=== PATIENT | male | born 1945 | race Caucasian/White ===

== ENCOUNTER 2016-12-17 16:01 | Observation (INO) | payer OTHER, MEDICAID ==
[~2016-12-17] VITALS: Ht 182.9 cm; Wt 100.0 kg
[~2016-12-17 16:01] MED LIST: 1-ME1LIQ PO; ADVAI250I PO; ASPI81TA82 PO; ATOR40TA49 PO; CENTTAB9 PO; CETI10 PO; DUONI NEB; ENOX30P SQ; FLON0.053 EACH NARE; FURO20 PO; GABA300C3 PO; LOSA25TA31 PO; MAGN500T4 PO; METO25 PO; MONT10 PO; NOVONP2 SQ; PERC5TAB12 PO; POTA10IN2 PO; PRIL40CA PO; SPIRCAP INH; TAMS0.4C67 PO; Z.0.OXYGENDME NC; ZOFR8TAB PO
[2016-12-17 16:04] VITALS: BP 163/70; PULSE 58; RESP 14; TEMP 98; O2SAT 98
--- NOTE | 2016-12-17 16:33 | PD ---
HPI Chief Complaint: GI Complaint Time Seen by Provider: 16:33 Travel History International Travel<30 days: No Contact w/Intl Traveler<30days: No Traveled to known affect area: No History of Present Illness HPI 71-year-old male with history of remote CVA, CAD, hypertension, and NSTEMI, COPD , presents to the emergency department for evaluation of 2 days of cough and chest congestion. Cough is productive of a thick green mucus. Patient has had posttussive emesis. States that he woke up 2 times last night "drenched in sweat." He even had to change her sheets this morning because he had sweats so much throughout the night. Patient contacted his primary care provider and was scheduled for Friday but thought that he cannot wait. He states he has been feeling weak throughout the day and has had bouts of disorientation. He is concerned because he has had pneumonia in the past that has resulted in hospitalization. He denies any chest pain. States that it feels a little tight but feels this is the mucus in his chest. No nausea or any. No diarrhea. No other symptoms to report. PFSH Past Medical History Anemia: Yes Arthritis: Yes Asthma: Yes Autoimmune Disease: No Blood Disorders: No Anxiety: No Depression: No Heart Rhythm Problems: Yes Cancer: No Cardiac Catheterization: Yes (1991 NO STENTS PLACED) Cardiovascular Problems: Yes High Cholesterol: Yes Chemotherapy: No Chest Pain: Yes COPD: Yes Cerebrovascular Accident: Yes Diabetes: Yes Diminished Hearing: Yes (RIGHT) Diverticulitis: Yes Endocrine: Yes Gastrointestinal Disorders: Yes (DIVERTICULOSIS) GERD: Yes Genitourinary: No Headaches: Yes Hepatitis: No Hiatal Hernia: No Hypertension: Yes Immune Disorder: No Implanted Vascular Access Dvce: Yes Kidney Stones: Yes Musculoskeletal: Yes (ARTHRITIS) Neurologic: Yes Psychiatric: No Reproductive: No Respiratory: Yes Immunizations Current: Yes Migraines: No Myocardial Infarction: Yes (NSTEMI) Pneumonia: Yes Radiation Therapy: No Renal Failure: No Seizures: Yes Sickle Cell Disease: No Sleep Apnea: No Thyroid Disease: No Triglycerides - High: Yes Ulcer: No Past Surgical History Abdominal Surgery: No AICD: No Arteriovenous Shunt: No Body Medical Devices: CERVICAL HARDWARE Cardiac Surgery: Yes Ear Surgery: No Endocrine Surgery: No Eye Surgery: No Genitourinary Surgery: Yes Gynecologic Surgery: No Insulin Pump: No Joint Replacement: No Neurologic Surgery: Yes (ANT. CERVICAL FUSION) Oral Surgery: Yes (DENTAL EXTRACTION) Pacemaker: No Thoracic Surgery: No Tonsillectomy: Yes Other Surgery: Yes (SPINAL FUSION C2,3,4,5,6) Social History Alcohol Use: No Tobacco Use: No Substance Use: No Allergies-Medications (Allergen,Severity, Reaction): Coded Allergies: Erythromycin (Verified Allergy, Severe, RASH, HIVES, SOB, 12/17/16) Gentamicin (Verified Allergy, Severe, RASH/SOB, 12/17/16) PT STATES HE IS NOT ALLERGIC Reported Meds & Prescriptions Reported Meds & Active Scripts Active Lovenox (Enoxaparin Sodium) 30 Mg/0.3 Ml Inj 30 Mg SQ Q12H 14 Days Lasix 20 Mg Tab (Furosemide) 20 Mg Tab 20 Mg PO DAILY 30 Days Zofran Tab (Ondansetron HCl) 8 Mg Tab 8 Mg PO BID Percocet 5-325 mg (Oxycodone/Acetaminophen) 1 Tab 1 Tab PO Q4H PRN Oxygen (O2) (Oxygendme) Device 2 L NC HS Oxygen Concentrator Portable Gaseous 2 L/min via Nasal Cannula Continuous For 99 months Resp: Albuterol/Ipratropium 2.5 Mg/0.5 Mg (Albuterol/Ipratropium) 1 Amp Nebu 1 Ampule NEB Q6HR NEB PRN Flomax (Tamsulosin HCl) 0.4 Mg Cap 0.4 Mg PO BID Metoprolol Tartrate 25 mg (Metoprolol Tartrate) 25 Mg Tab 25 Mg PO Q12HR Reported Spiriva Handihaler (Tiotropium [place]) 18 Mcg Cap 1 Puff INH DAILY DO NOT SWALLOW CAPSULES Magnesium 500 Mg Tab 400 Mg PO DAILY Potassium Chloride ER 10 meq (Potassium Chloride) 10 Meq Cap 1 Cap PO DAILY Centrum (Multivitamins) Tab 1 Tab PO DAILY Montelukast Sodium 10 Mg Tab 10 Mg PO DAILY Novolin N (Insulin Human NPH) 100 Units/Ml Inj 30 Units SQ HS Gabapentin 300 Mg Cap 300 Mg PO TID Advair Diskus 250/50 (Salmeterol Xinafoate/Fluticasone) Fluticasone/Salmeterol 250/50 Inh 1 Inh PO BID Zyrtec 10 Mg Tab (Cetirizine HCl) 10 Mg Tab 10 Mg PO DAILY Aspir-81 (Aspirin) 81 Mg Tab 81 Mg PO DAILY Prilosec 40 mg cap (Omeprazole) 40 Mg Cap 40 Mg PO DAILY Flonase (Fluticasone Propionate) 0.05 % Naspr 2 Spr EACH NARE BID Cozaar (Losartan Potassium) 25 Mg Tab 25 Mg PO DAILY Lipitor 40 Mg Tab (Atorvastatin Calcium) 40 Mg Tab 40 Mg PO HS Amlodipine Besylate 10 mg (Amlodipine Besylate) 10 Mg Tab 10 Mg PO DAILY Review of Systems Except as stated in HPI: all other systems reviewed are Neg Physical Exam Narrative GENERAL: Well-nourished male patient, ambulatory with cane assistance, in no acute distress SKIN: Warm and dry. HEAD: Atraumatic. Normocephalic. EYES: Pupils equal and round. No scleral icterus. No injection or drainage. ENT: No nasal bleeding or discharge. Mucous membranes pink and moist. NECK: Trachea midline. No JVD. CARDIOVASCULAR: Regular rate and rhythm. No murmur appreciated. RESPIRATORY: No accessory muscle use. Coarse clear to cough, diminished . Breath sounds equal bilaterally. GASTROINTESTINAL: Abdomen soft, non-tender, nondistended. Hepatic and splenic margins not palpable. MUSCULOSKELETAL: No obvious deformities. No clubbing. No cyanosis. No edema. NEUROLOGICAL: Awake and alert. No obvious cranial nerve deficits. Motor grossly within normal limits. Normal speech. PSYCHIATRIC: Appropriate mood and affect; insight and judgment normal. Data Data Last Documented VS Vital Signs Date Time Temp Pulse Resp B/P Pulse Ox O2 Delivery O2 Flow Rate FiO2 12/17/16 16:04 98.0 58 14 163/70 98 Room Air Orders Complete Blood Count With Diff (12/17/16 16:30) Basic Metabolic Panel (Bmp) (12/17/16 16:30) Ckmb (Isoenzyme) Profile (12/17/16 16:30) Troponin I (12/17/16 16:30) Influenzae A/B Antigen (12/17/16 16:30) Electrocardiogram (12/17/16 16:30) Chest, Single Ap (12/17/16 16:30) CKMB (12/17/16 16:58) CKMB% (12/17/16 16:58) Labs Laboratory Tests Test 12/17/16 16:58 White Blood Count 5.8 TH/MM3 Red Blood Count 4.18 MIL/MM3 Hemoglobin 12.3 GM/DL Hematocrit 37.0 % Mean Corpuscular Volume 88.7 FL Mean Corpuscular Hemoglobin 29.4 PG Mean Corpuscular Hemoglobin 33.2 % Concent Red Cell Distribution Width 15.9 % Platelet Count 279 TH/MM3 Mean Platelet Volume 7.0 FL Neutrophils (%) (Auto) 78.0 % Lymphocytes (%) (Auto) 7.9 % Monocytes (%) (Auto) 11.4 % Eosinophils (%) (Auto) 1.0 % Basophils (%) (Auto) 1.7 % Neutrophils # (Auto) 4.5 TH/MM3 Lymphocytes # (Auto) 0.5 TH/MM3 Monocytes # (Auto) 0.7 TH/MM3 Eosinophils # (Auto) 0.1 TH/MM3 Basophils # (Auto) 0.1 TH/MM3 CBC Comment DIFF FINAL Differential Comment Sodium Level 140 MEQ/L Potassium Level 4.1 MEQ/L Chloride Level 105 MEQ/L Carbon Dioxide Level 25.5 MEQ/L Anion Gap 10 MEQ/L Blood Urea Nitrogen 16 MG/DL Creatinine 1.10 MG/DL Estimat Glomerular Filtration 66 ML/MIN Rate Random Glucose 86 MG/DL Calcium Level 9.0 MG/DL Total Creatine Kinase 126 U/L Creatine Kinase MB 1.9 NG/ML Troponin I 0.08 NG/ML MDM Medical Decision Making Medical Screen Exam Complete: Yes Emergency Medical Condition: Yes Medical Record Reviewed: Yes Differential Diagnosis Pneumonia versus influenza versus CHF versus ACS Narrative Course 71-year-old male presents to emergency department for evaluation. Patient does have coarse breath sounds. He appears without distress Work up was initiated in triage. Once a medical bed becomes available, patient will be transferred and care assumed by that provider. Condition: Stable Babs Reed Dec 17, 2016 16:33 Babs Reed Dec 17, 2016 16:33
--- NOTE | 2016-12-17 16:49 | RADRPT ---
EXAM DATE/TIME: 12/17/2016 16:28 [facility] COMPARISON: CHEST SINGLE AP, September 04, 2016, 10:29. INDICATIONS : Short of breath. MEDICAL HISTORY : Chronic obstructive pulmonary disease. SURGICAL HISTORY : None. ENCOUNTER: Initial ACUITY: 1 week PAIN SCORE: 4/10 LOCATION: Bilateral chest FINDINGS: Portable AP view of the chest demonstrates a normal-sized cardiac silhouette. Lungs are underinflated . There is mild airspace opacity left lung base. No pneumothorax or definite effusion is seen. Bones and soft tissues demonstrate no acute finding. CONCLUSION: Subtle airspace opacity at the left lung base could represent atelectasis or mild consolidation. Chao Mcneil MD on December 17, 2016 at 16:46 Board Certified Radiologist. This report was verified electronically.
[2016-12-17 17:23] LABS: AUTOMATED NEUTROPHIL # 4.5 TH/MM3 (1.8-7.7); BASOPHIL # 0.1 TH/MM3 (0-0.2); BASOPHIL % 1.7 % (0.0-2.0); EOSINOPHIL # 0.1 TH/MM3 (0-0.4); LYMPH % 7.9 % (9.0-44.0); LYMPHOCYTE # 0.5 TH/MM3 (1.0-4.8); MEAN CELL VOLUME 88.7 FL (80.0-100.0); MEAN CORPUSCULAR HEMOGLOBIN 29.4 PG (27.0-34.0); MEAN CORPUSCULAR HGB CONC 33.2 % (32.0-36.0); MONO % 11.4 % (0.0-8.0); PLATELET COUNT 279 TH/MM3 (150-450); RED BLOOD COUNT 4.18 MIL/MM3 (4.50-5.90); RED CELL DISTRIBUTION WIDTH 15.9 % (11.6-17.2); WHITE BLOOD COUNT 5.8 TH/MM3 (4.0-11.0)
[2016-12-17 17:24] LABS: HEMO FLAGS DIFF FINAL
[2016-12-17 17:42] LABS: ANION GAP 10 MEQ/L (5-15); BICARBONATE 25.5 MEQ/L (21.0-32.0); BLOOD UREA NITROGEN 16 MG/DL (7-18); CHLORIDE 105 MEQ/L (98-107); GLOMERULAR FILTRATION RATE 66 ML/MIN (>89); POTASSIUM 4.1 MEQ/L (3.5-5.1); SODIUM (NA) 140 MEQ/L (136-145)
[2016-12-17 17:45] LABS: CREATINE KINASE 126 U/L (39-308)
[2016-12-17 17:58] LABS: CKMB 1.9 NG/ML (0.5-3.6)
--- NOTE | 2016-12-17 19:15 | EKG ---
Date Performed: 12/17/2016 Time Performed: 17:10:10 PTAGE: 71 years EKG: SINUS BRADYCARDIA RIGHT BUNDLE BRANCH BLOCK LEFT ANTERIOR FASCICULAR BLOCK ABNORMAL ECG NO SIGNIFICANT CHANGE FROM PRIOR ELECTROCARDIOGRAM. PREVIOUS TRACING : 09/07/2016 20.51 DOCTOR: Sylvester Vogt Interpretating Date/Time 12/17/2016 19:13:58
[2016-12-17] MEDS ORDERED: GABA300C5 PO (20:07)
[2016-12-17] MEDS ORDERED: OMEP40CA2 PO (20:07)
[2016-12-17] MEDS ORDERED: IPRAAER INH (20:07)
[2016-12-17] MEDS ORDERED: GLIP10TA6 PO (20:07)
[2016-12-17] MEDS ORDERED: POTA10TA8 PO (20:07)
[2016-12-17] MEDS ORDERED: NOVONP2 SQ (20:07)
[2016-12-17] MEDS ORDERED: TRAZ50TA12 PO (20:07)
[2016-12-17] MEDS ORDERED: METF1000 PO (20:07)
[2016-12-17] MEDS ORDERED: ATOR40TA16 PO (20:07)
[2016-12-17] MEDS ORDERED: MONT10TA4 PO (20:07)
[2016-12-17] MEDS ORDERED: LOSA25TA PO (20:07)
[2016-12-17] MEDS ORDERED: METO25TA3 PO (20:07)
[2016-12-17] MEDS ORDERED: SPIRCAP INH (20:07)
[2016-12-17] MEDS ORDERED: TAMS0.4C4 PO (20:07)
[2016-12-17] MEDS ORDERED: FURO20TA PO (20:07)
[2016-12-17] MEDS ORDERED: AMLO10TA2 PO (20:07)
[2016-12-17] MEDS ORDERED: BACL20TA PO (20:07)
[2016-12-17] MEDS ORDERED: VENTAER INH (20:07)
[2016-12-17] MEDS ORDERED: ADVA250A INH (20:07)
[2016-12-17 21:01] VITALS: BP 141/67; PULSE 72; RESP 16; O2SAT 95
--- NOTE | 2016-12-17 21:25 | PD ---
Data Data Last Documented VS Vital Signs Date Time Temp Pulse Resp B/P Pulse Ox O2 Delivery O2 Flow Rate FiO2 12/17/16 21:01 72 16 141/67 95 Room Air 12/17/16 16:04 98.0 Orders Complete Blood Count With Diff (12/17/16 16:30) Basic Metabolic Panel (Bmp) (12/17/16 16:30) Ckmb (Isoenzyme) Profile (12/17/16 16:30) Troponin I (12/17/16 16:30) Influenzae A/B Antigen (12/17/16 16:30) Electrocardiogram (12/17/16 16:30) Chest, Single Ap (12/17/16 16:30) CKMB (12/17/16 16:58) CKMB% (12/17/16 16:58) Electrocardiogram (12/17/16 ) Troponin I (12/17/16 20:14) B-Type Natriuretic Peptide (12/17/16 21:57) Blood Culture (12/17/16 21:57) Sodium Chloride 0.9% Flush (Ns Flush) (12/17/16 22:00) Ceftriaxone Inj (Rocephin Inj) (12/17/16 22:00) Levofloxacin 750 Mg Premix Inj (Levaquin (12/17/16 22:00) Admit Order (Ed Use Only) (12/17/16 22:21) Labs Laboratory Tests Test 12/17/16 12/17/16 16:58 19:50 White Blood Count 5.8 TH/MM3 Red Blood Count 4.18 MIL/MM3 Hemoglobin 12.3 GM/DL Hematocrit 37.0 % Mean Corpuscular Volume 88.7 FL Mean Corpuscular Hemoglobin 29.4 PG Mean Corpuscular Hemoglobin 33.2 % Concent Red Cell Distribution Width 15.9 % Platelet Count 279 TH/MM3 Mean Platelet Volume 7.0 FL Neutrophils (%) (Auto) 78.0 % Lymphocytes (%) (Auto) 7.9 % Monocytes (%) (Auto) 11.4 % Eosinophils (%) (Auto) 1.0 % Basophils (%) (Auto) 1.7 % Neutrophils # (Auto) 4.5 TH/MM3 Lymphocytes # (Auto) 0.5 TH/MM3 Monocytes # (Auto) 0.7 TH/MM3 Eosinophils # (Auto) 0.1 TH/MM3 Basophils # (Auto) 0.1 TH/MM3 CBC Comment DIFF FINAL Differential Comment Sodium Level 140 MEQ/L Potassium Level 4.1 MEQ/L Chloride Level 105 MEQ/L Carbon Dioxide Level 25.5 MEQ/L Anion Gap 10 MEQ/L Blood Urea Nitrogen 16 MG/DL Creatinine 1.10 MG/DL Estimat Glomerular Filtration 66 ML/MIN Rate Random Glucose 86 MG/DL Calcium Level 9.0 MG/DL Total Creatine Kinase 126 U/L Creatine Kinase MB 1.9 NG/ML Troponin I 0.08 NG/ML 0.08 NG/ML [facility] Medical Record Reviewed: Yes Supervised Visit with [place]: Yes Narrative Course I, Dr. Vital, have reviewed the advance practice practitioner's documentation and am in agreement, met with the patient face to face, made the diagnosis, and the medical decision making was done by me. *My assessment and Findings: Patient has had cough, productive associated with night sweats. He's also vomited several times today. He has COPD and coronary artery disease. His workup tonight reveals the following: CBC & BMP Diagram 12/17/16 16:58 Troponin is 0.08 with a repeat troponin 2 hours later of 0.08 EKG: Sinus, rate 69, right bundle branch block pattern similar to old EKGs, deep Q waves in the inferior leads also stable Last 24 hours Impressions Chest X-Ray 12/17/16 1630 Signed Impressions: Service Date/Time: Saturday, December 17, 2016 16:28 - CONCLUSION: Subtle airspace opacity at the left lung base could represent atelectasis or mild consolidation. Chao Mcneil MD The patient's troponin has been measured here 17 times revealing an elevated level always. He has no chest pain. His EKG is stable. An acute coronary process is considered unlikely. He appears to have pneumonia at the left base based on today's evaluation. Case discussed with cardiology on-call, Dr. Singh. Admission considered reasonable. Discussed with Dr. Cooper for the hospitalist service. Rocephin and Levaquin started here. Cultures obtained. Patient reassessed prior to admission and is agreeable with plan and is in no distress. Diagnosis Primary Impression: Pneumonia Qualified Code: J18.1 - Pneumonia of left lower lobe due to infectious organism Additional Impressions: Vomiting Qualified Code: R11.2 - Non-intractable vomiting with nausea, unspecified vomiting type Elevated troponin I level Additional Instruction: Neal Vital MD Dec 17, 2016 21:25 Doxycycline Hyclate 100 Mg [id number] Mg PO BID #20 CAP Ref 0 Prov:Neal Vital MD 12/17/16 Amoxicillin-Clavulanate (Augmentin)500-125 mg [id number] Mg PO TID 10 Days Ref 0 Prov:Neal Vital MD 12/17/16 Disposition: 01 DISCHARGE HOME Condition: Stable Neal Vital MD Dec 17, 2016 21:25
[2016-12-17] MEDS ORDERED: AUGM500T7 PO (21:33)
[2016-12-17] MEDS ORDERED: REGL10TA5 PO (21:33)
[2016-12-17] MEDS ORDERED: DOXY100C PO (21:33)
[2016-12-17] MEDS ORDERED: cefTRIAXone INJ 1,000 MG in SODIUM CHLORIDE 0.9% INJ 100 ML IV ONE (22:00)
[2016-12-17] MEDS ORDERED: SODIUM CHLORIDE 0.9% FLUSH 5 ML FLUSH IVF PRN (22:00)
[2016-12-17] MEDS ORDERED: LEVOFLOXACIN 750 MG PREMIX INJ 150 ML IV ONE (22:00)
[2016-12-17] MEDS ORDERED: DEXTROSE 50% IN WATER 50 ML VIAL(D50) IV PUSH PRN (23:15)
[2016-12-17] MEDS ORDERED: GLUCAGON 1 MG/ML VIAL OTHER PRN (23:15)
[2016-12-17] MEDS ORDERED: SODIUM CHLORIDE 0.9% FLUSH 5 ML FLUSH FLUSH PRN (23:15)
[2016-12-17] MEDS ORDERED: NALOXONE HCL 0.4 MG/ML AMP IV PRN (23:15)
[2016-12-18] VITALS (7 sets, daily range): BP systolic 126–159; BP diastolic 59–76; PULSE 55–84; RESP 16–20; TEMP 97.9–98.9; O2SAT 94–97
--- NOTE | 2016-12-18 05:40 | EKG ---
Date Performed: 12/17/2016 Time Performed: 19:51:47 PTAGE: 71 years EKG: Sinus rhythm WITH FIRST DEGREE AV BLOCK RIGHT BUNDLE BRANCH BLOCK LEFT anterior fascicular block Cannot rule out INFERIOR MYOCARDIAL INFARCTION ABNORMAL ECG INTERPRETATION BASED ON A DEFAULT AGE OF 42 YEARS NO SIGN IFICANT CHANGE FROM PRIOR ELECTROCARDIOGRAM. PREVIOUS TRACING : 12/17/2016 17.10 DOCTOR: Sylvester Vogt Interpretating Date/Time 12/18/2016 05:39:14
[2016-12-18] MEDS: glipiZIDE 10 MG TAB PO SCH ×2 (05:53→16:14)
[2016-12-18] MEDS: INSULIN ASPART SUPPLEMENTAL SCALE SQ SCH ×4 (05:58→21:00)
--- NOTE | 2016-12-18 08:14 | EKG ---
Date Performed: 12/18/2016 Time Performed: 01:58:37 PTAGE: 71 years EKG: SINUS BRADYCARDIA WITH FIRST DEGREE AV BLOCK WITH Probable sinus arrhythmia and premature v entricular contractions LOW QRS VOLTAGE IN PRECORDIAL LEADS RIGHT BUNDLE BRANCH BLOCK INFERIOR MYOCAR DIAL INFARCTION ABNORMAL ECG COMPARED TO PRIOR ELECTROCARDIOGRAM, PVCs are present. PREVIOUS TRACING : 12/17/2016 19.51 DOCTOR: Sylvester Vogt Interpretating Date/Time 12/18/2016 08:12:28
[2016-12-18] MEDS: POTASSIUM CHLORIDE 10 MEQ CONTROLLED RELEASE TAB PO SCH (10:46)
[2016-12-18] MEDS: TIOTROPIUM BROMIDE 18 MCG INH INH SCH (10:46)
[2016-12-18] MEDS: GABAPENTIN 300 MG CAP PO SCH ×3 (10:46→18:51)
[2016-12-18] MEDS: PANTOPRAZOLE SOD 40 MG DELAYED RELEASE TAB PO SCH (10:46)
[2016-12-18] MEDS: FUROSEMIDE 20 MG TAB PO SCH ×2 (10:46→21:34)
[2016-12-18] MEDS: LOSARTAN 25 MG TAB PO SCH (10:46)
[2016-12-18] MEDS: BACLOFEN 20 MG TAB PO SCH ×3 (10:46→18:51)
[2016-12-18] MEDS: METOPROLOL TARTRATE 25 MG TAB PO SCH ×2 (10:46→21:35)
[2016-12-18] MEDS: SODIUM CHLORIDE 0.9% FLUSH 5 ML FLUSH FLUSH SCH ×2 (10:47→21:33)
--- NOTE | 2016-12-18 11:13 | HHI.HP ---
cc: Dr. Robin Sheldon [facility] Robin Sheldon M.D. Admission Diagnosis L Lung PNA, N/V, Tn 0.08 Diagnoses: Chief Complaint: cough, sweats, vomiting Travel History International Travel<30 Days: No Contact w/Intl Traveler <30 Da: No Traveled to Known Affected Are: No History of Present Illness 71-year-old male with history of COPD, HTN, HLD, CHF, DM, GERD, arthritis, presents with a 2 day history of cough, nasal congestion, sweats/chills. His cough has been productive of thick milky green mucus. Patient states the past 2 nights he has woke up drenched in sweat, felt like he was breaking a fever. He did not take his temperature at home. Denies any chest pain, shortness of breath, or wheezing. Patient states he felt like he was coming down with pneumonia as he has had this in the past. He contacted his PCP who could not arrange an appointment until Friday (3 days from now), however the patient felt miserable therefore he presented to the ER. He's been using his DuoNebs at home for his COPD without much relief. Denies any sick contacts. Yesterday morning after breakfast he was coughing significantly, then had an episode of posttussive vomiting. Otherwise he denies any abdominal pain, nausea, or recurrent vomiting. Denies any constipation or diarrhea. He has no other medical complaints at this time. Upon arrival, the chest xray showed airspace opacity at the left lung base consistent with mild consolidation. The patient was to be sent home from the ER, however troponin was elevated at 0.08. ER MD contacted the patient's social work professor Dr. Singh who recommended the patient stay in the hospital for further evaluation. The patient also sees nursing informatics specialist Dr. Kuhn. Review of Systems Constitutional: COMPLAINS OF: Chills, Dizziness, Night Sweats, DENIES: Fever, Change in appetite Endocrine: DENIES: Polydipsia, Polyuria, Polyphagia Eyes: DENIES: Blurred vision, Diplopia, Double Vision Ears, nose, mouth, throat: COMPLAINS OF: Running Nose, DENIES: Ear Pain, Odynophagia Respiratory: COMPLAINS OF: Cough, Sputum production, DENIES: Wheezing, Shortness of breath Cardiovascular: DENIES: Chest pain, Palpitations, Syncope, Dyspnea on Exertion Gastrointestinal: COMPLAINS OF: Vomiting, DENIES: Abdominal pain, Constipation , Diarrhea, Nausea Genitourinary: DENIES: Urinary frequency, Urgency, Dysuria Musculoskeletal: DENIES: Back pain, Neck pain Integumentary: DENIES: Pruritus, Rash Hematologic/lymphatic: DENIES: Bruising, Lymphadenopathy Immunologic/allergic: DENIES: Eczema, Urticaria Neurologic: DENIES: Abnormal gait, Headache, Localized weakness, Paresthesias Psychiatric: DENIES: Anxiety, Depression Past Family Social History Past Medical History COPD HTN HLD CHF DM GERD arthritis Past Surgical History C2-C6 spinal fusion Right ankle fracture repair with hardware in place Reported Medications Active Lasix 20 Mg Tab (Furosemide) 20 Mg Tab 20 Mg PO DAILY 30 Days Zofran Tab (Ondansetron HCl) 8 Mg Tab 8 Mg PO BID Percocet 5-325 mg (Oxycodone/Acetaminophen) 1 Tab 1 Tab PO Q4H PRN Oxygen (O2) (Oxygendme) Device 2 L NC HS Oxygen Concentrator Portable Gaseous 2 L/min via Nasal Cannula Continuous For 99 months Resp: Albuterol/Ipratropium 2.5 Mg/0.5 Mg (Albuterol/Ipratropium) 1 Amp Nebu 1 Ampule NEB Q6HR NEB PRN Flomax (Tamsulosin HCl) 0.4 Mg Cap 0.4 Mg PO BID Metoprolol Tartrate 25 mg (Metoprolol Tartrate) 25 Mg Tab 25 Mg PO Q12HR Reported Spiriva Handihaler (Tiotropium [place]) 18 Mcg Cap 1 Puff INH DAILY DO NOT SWALLOW CAPSULES Magnesium 500 Mg Tab 400 Mg PO DAILY Potassium Chloride ER 10 meq (Potassium Chloride) 10 Meq Cap 1 Cap PO DAILY Centrum (Multivitamins) Tab 1 Tab PO DAILY Montelukast Sodium 10 Mg Tab 10 Mg PO DAILY Novolin N (Insulin Human NPH) 100 Units/Ml Inj 30 Units SQ HS Gabapentin 300 Mg Cap 300 Mg PO TID Advair Diskus 250/50 (Salmeterol Xinafoate/Fluticasone) Fluticasone/Salmeterol 250/50 Inh 1 Inh PO BID Zyrtec 10 Mg Tab (Cetirizine HCl) 10 Mg Tab 10 Mg PO DAILY Aspir-81 (Aspirin) 81 Mg Tab 81 Mg PO DAILY Prilosec 40 mg cap (Omeprazole) 40 Mg Cap 40 Mg PO DAILY Flonase (Fluticasone Propionate) 0.05 % Naspr 2 Spr EACH NARE BID Cozaar (Losartan Potassium) 25 Mg Tab 25 Mg PO DAILY Lipitor 40 Mg Tab (Atorvastatin Calcium) 40 Mg Tab 40 Mg PO HS Amlodipine Besylate 10 mg (Amlodipine Besylate) 10 Mg Tab 10 Mg PO DAILY Allergies: Coded Allergies: Erythromycin (Verified Allergy, Severe, RASH, HIVES, SOB, 12/17/16) Gentamicin (Verified Allergy, Severe, RASH/SOB, 12/17/16) PT STATES HE IS NOT ALLERGIC Active Ordered Medications Current Medications Medications (Trade) Dose Ordered Sig/Jeffery Route Start Time Stop Time Status Last Admin (NS Flush) 2 ml UNSCH PRN IVF 12/17/16 22:00 (NS Flush) 2 ml UNSCH PRN FLUSH 12/17/16 23:15 (NS Flush) 2 ml BID FLUSH 12/18/16 09:00 12/18/16 10:47 Naloxone HCl 0.4 mg 0.4 mg UNSCH PRN IV 12/17/16 23:15 (Levaquin 750 Mg Premix Inj) 150 ml @ 100 mls/hr Q24H IV 12/18/16 22:00 (Norvasc) 10 mg DAILY PO 12/18/16 09:00 12/18/16 10:45 (Lipitor) 40 mg HS PO 12/18/16 21:00 (Lioresal) 20 mg TID PO 12/18/16 09:00 12/18/16 10:46 (Lasix) 20 mg BID PO 12/18/16 09:00 12/18/16 10:46 (Neurontin) 300 mg TID PO 12/18/16 09:00 12/18/16 10:46 (Glucotrol) 10 mg BIDAC PO 12/18/16 07:00 12/18/16 05:53 (Cozaar) 25 mg DAILY PO 12/18/16 09:00 12/18/16 10:46 (Lopressor) 25 mg BID PO 12/18/16 09:00 12/18/16 10:46 (Singulair) 10 mg HS PO 12/18/16 21:00 (Protonix) 40 mg DAILY PO 12/18/16 09:00 12/18/16 10:46 (KCl) 10 meq DAILY PO 12/18/16 09:00 12/18/16 10:46 (Flomax) 0.4 mg HS PO 12/18/16 21:00 (Spiriva Inh) 18 mcg DAILY INH 12/18/16 09:00 12/18/16 10:46 (Desyrel) 50 mg HS PO 12/18/16 21:00 (D50w (Vial) Inj) 25 ml UNSCH PRN IV PUSH 12/17/16 23:15 (Glucagon Inj) 1 mg UNSCH PRN OTHER 12/17/16 23:15 Family History Mother with unknown cancer Father with hypercalcemia Social History Never smoked smoked tobacco Very occasional alcohol use Denies any illicit drug use 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 SKIN: Warm and dry. No rash. HEAD: Normocephalic. Atraumatic. EYES: Pupils equal and round. No scleral icterus. No injection or drainage. ENT: No nasal bleeding or discharge. Mucous membranes pink and moist. NECK: Supple. Trachea midline. CARDIOVASCULAR: Regular rate and rhythm. S1, S2 noted. No murmur appreciated. RESPIRATORY: No accessory muscle use. Breath sounds diminished at left base, otherwise clear to auscultation. Breath sounds equal bilaterally. GASTROINTESTINAL: Abdomen soft, non-tender, nondistended. Normoactive bowel sounds x4. MUSCULOSKELETAL: No obvious deformities. Extremities without clubbing, cyanosis , or edema. NEUROLOGICAL: Awake and alert. No obvious cranial nerve deficits. Motor grossly within normal limits. Normal speech. PSYCHIATRIC: Appropriate mood and affect; insight and judgment normal. Laboratory Laboratory Tests Test 12/17/16 12/17/16 12/17/16 12/18/16 16:58 19:50 22:10 02:00 White Blood Count 5.8 Red Blood Count 4.18 Hemoglobin 12.3 Hematocrit 37.0 Mean Corpuscular Volume 88.7 Mean Corpuscular Hemoglobin 29.4 Mean Corpuscular Hemoglobin 33.2 Concent Red Cell Distribution Width 15.9 Platelet Count 279 Mean Platelet Volume 7.0 Neutrophils (%) (Auto) 78.0 Lymphocytes (%) (Auto) 7.9 Monocytes (%) (Auto) 11.4 Eosinophils (%) (Auto) 1.0 Basophils (%) (Auto) 1.7 Neutrophils # (Auto) 4.5 Lymphocytes # (Auto) 0.5 Monocytes # (Auto) 0.7 Eosinophils # (Auto) 0.1 Basophils # (Auto) 0.1 CBC Comment DIFF FINAL Differential Comment Sodium Level 140 Potassium Level 4.1 Chloride Level 105 Carbon Dioxide Level 25.5 Anion Gap 10 Blood Urea Nitrogen 16 Creatinine 1.10 Estimat Glomerular Filtration 66 Rate Random Glucose 86 Calcium Level 9.0 Total Creatine Kinase 126 98 Creatine Kinase MB 1.9 Troponin I 0.08 0.08 0.08 B-Type Natriuretic Peptide 124 Test 12/18/16 08:18 Total Creatine Kinase 96 Troponin I 0.08 Date/Time Procedure Status Source Growth 12/17/16 22:10 Aerobic Blood Culture Received Blood Peripheral Pending 12/17/16 22:10 Anaerobic Blood Culture Received Blood Peripheral Pending 12/17/16 16:58 Influenza Types A,B Antigen (KAT) - Final Complete Nasal Washing NEGATIVE FOR FLU A AND B ANTIGEN.... Result Diagram: 12/17/16 1658 12/17/16 1658 Imaging Last Impressions Chest X-Ray 12/17/16 1630 Signed Impressions: Service Date/Time: Saturday, December 17, 2016 16:28 - CONCLUSION: Subtle airspace opacity at the left lung base could represent atelectasis or mild consolidation. Chao Mcneil MD Assessment and Plan Problem List: (1) Pneumonia ICD Code: J18.9 Status: Acute (2) Elevated troponin I level ICD Code: R79.89 Status: Acute Assessment and Plan 71-year-old male with history of COPD, HTN, HLD, CHF, DM, GERD, arthritis, presents with a 2 day history of procutive cough, nasal congestion, sweats/ chills. Upon arrival, diagnosed with pneumonia on CXR, given abx, the patient was to be sent home from the ER, however troponin was elevated at 0.08. ER MD contacted the patient's social work professor Dr. Singh who recommended the patient stay in the hospital for further evaluation. The patient also sees nursing informatics specialist Dr. Kuhn. Community Acquired Pneumonia: CXR images reviewed by me, showed airspace opacity at the left lung base consistent with mild consolidation. -Continue on IV Levaquin -Supportive treatment with Mucinex bid, Tessalon prn cough -Duonebs q8h jeffery and q4h prn Elevated Troponins: patient with no complaints of chest pain. Troponins elevated but flat at 0.08 x4. The patient has persistently elevated troponins on all previous visits. -Will consult patient's social work professor for further evaluation COPD: does not appear to be in acute exacerbation -Continue patient's duonebs, Spiriva, Advair bid -O2 prn HTN/HLD/CHF: chronic, stable -continue patient's Losartan, metoprolol, Norvasc, statin, lasix Diabetes: chronic, stable -hold patient's metformin -continue glipizide -monitor Accu-cheks and cover with SSI DVT Prophylaxis: teds/SCDs Written by Suzy Flynn, acting as scribe for Dr. Otto on 12/18/16 at 08:55. The documentation accurately reflects the work performed [id number] by me Dr. Otto on 12/18/16 at 08:55. Discussed Condition With Patient Problem Qualifiers (1) Pneumonia: Qualified Code: J18.1 - Pneumonia of left lower lobe due to infectious organism Suzy Flynn PA-C Dec 18, 2016 11:13 Stefani Otto MD Dec 18, 2016 19:06
[2016-12-18] MEDS ORDERED: BENZONATATE 100 MG CAP PO PRN (11:15)
[2016-12-18] MEDS ORDERED: RESP: ALBUTEROL 2.5 MG/IPRATROPIUM 0.5 MG NEB (PRN) NEB (11:15)
[2016-12-18] MEDS ORDERED: PRED1SUS EACH EYE (13:47)
--- NOTE | 2016-12-18 14:59 | EKG ---
Date Performed: 12/18/2016 Time Performed: 08:24:49 PTAGE: 71 years EKG: POSSIBLE ECTOPIC ATRIAL RHYTHM with PACs RIGHT BUNDLE BRANCH BLOCK POSSIBLE ANTERIOR MYOCAR DIAL INFARCTION INFERIOR MYOCARDIAL INFARCTION ABNORMAL ECG NO SIGNIFICANT CHANGE FROM PRIOR ELECTROC ARDIOGRAM. PREVIOUS TRACING : 12/18/2016 01.58 DOCTOR: Sylvester Vogt Interpretating Date/Time 12/18/2016 14:58:38
[2016-12-18] MEDS: RESP: ALBUTEROL 2.5 MG/IPRATROPIUM 0.5 MG NEB (SCH) NEB ×2 (15:23→23:49)
--- NOTE | 2016-12-18 20:11 | MB ---
cc: ROWENA BURTON MD DATE OF CONSULTATION: 12/18/2016 DATE OF : 1945 HISTORY OF PRESENT ILLNESS The patient is a 71-year-old man who does have a history of chronic troponin elevation. He reports that he has had two days of progressive cough, fevers, chills and last night began having nausea and vomiting. He was coughing up green sputum and felt like he was coming down with pneumonia. He subsequently presented to the emergency room. He denies any chest pain or significant shortness of breath. PAST MEDICAL HISTORY Significant for - 1. Hypertension. 2. Diabetes. 3. Hyperlipidemia. 4. CHF. 5. COPD. 6. SVT with a negative EP study. OUTPATIENT MEDICATIONS 1. Oxygen. 2. Percocet. 3. Zofran. 4. Lasix. 5. Spiriva. 6. Magnesium. 7. Potassium. 8. Centrum. 9. Singulair. 10. Gabapentin. 11. Insulin. 12. Advair. 13. Zyrtec. 14. Prilosec. 15. Flonase. 16. Cozaar. 17. Lipitor. 18. Amlodipine. ALLERGIES ERYTHROMYCIN AND GENTAMICIN. FAMILY HISTORY Positive for cancer. SOCIAL HISTORY The patient does not smoke and rarely has alcohol. 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 REVIEW OF SYSTEMS The patient has been weak since his pelvic fracture. Other than this and what is mentioned in the HPI, all 12 systems are negative. PHYSICAL EXAMINATION VITAL SIGNS: 98.9, 84, 20, 129/71. GENERAL: He is a well-appearing elderly man who is in no apparent distress. NECK: His neck is free from JVD. LUNGS: The lungs are bilaterally clear to auscultation though a bit decreased on the left base. ABDOMEN: The abdomen is soft. EXTREMITIES: The extremities are free from edema. IMAGING Chest x-ray shows left lower lobe opacity. LAB VALUES Significant for serum troponins of 0.08/0.08/0.08. IMPRESSION AND PLAN Elevated troponin - The patient does clearly have a history of chronic troponin elevation. His last visit the troponins were approximately 0.15. It is reasonable to continue with conservative medical management. History of CHF - The patient appears relatively euvolemic here. Pneumonia - This is being managed by the primary team. Disposition - It is reasonable for discharge from a cardiovascular perspective. I will be available on a p.r.n. basis. Leslie Barrios/BJF /5:20 PM /7:36 PM
[2016-12-18] MEDS ORDERED: traZODone HCL 50 MG TAB PO SCH (21:00)
[2016-12-18] MEDS ORDERED: ATORVASTATIN 40 MG TAB PO SCH (21:00)
[2016-12-18] MEDS ORDERED: TAMSULOSIN HCL 0.4 MG CAP PO SCH (21:00)
[2016-12-18] MEDS ORDERED: MONTELUKAST SODIUM 10 MG TAB PO SCH (21:00)
[2016-12-18] MEDS: BUDESONIDE-FORMOTEROL 160/4.5 MCG INHALER INH SCH (21:33)
[2016-12-18] MEDS: prednisoLONE ACETATE 1% OPHT SUSP 5 ML BTL EACH EYE SCH (21:33)
[2016-12-18] MEDS: guaiFENesin E.R. 600 MG TAB PO SCH (21:35)
[2016-12-18] MEDS ORDERED: LEVOFLOXACIN 750 MG PREMIX INJ 150 ML IV SCH (22:00)
[2016-12-19] VITALS: BP 137/70; PULSE 52; RESP 20; TEMP 97.7; O2SAT 96
[2016-12-19 00:14] VITALS: PULSE 49
[2016-12-19 04:00] VITALS: BP 117/54; PULSE 53; RESP 20; TEMP 97.1; O2SAT 96
[2016-12-19] MEDS: glipiZIDE 10 MG TAB PO SCH (06:18)
[2016-12-19] MEDS: INSULIN ASPART SUPPLEMENTAL SCALE SQ SCH ×2 (06:18→11:00)
[2016-12-19] MEDS: RESP: ALBUTEROL 2.5 MG/IPRATROPIUM 0.5 MG NEB (SCH) NEB (07:48)
[2016-12-19 08:00] VITALS: BP 137/95; PULSE 75; RESP 20; TEMP 97.1; O2SAT 95
[2016-12-19 08:45] VITALS: PULSE 74
[2016-12-19] MEDS: guaiFENesin E.R. 600 MG TAB PO SCH (08:49)
[2016-12-19] MEDS: BACLOFEN 20 MG TAB PO SCH (08:49)
[2016-12-19] MEDS: TIOTROPIUM BROMIDE 18 MCG INH INH SCH (08:49)
[2016-12-19] MEDS: LOSARTAN 25 MG TAB PO SCH (08:49)
[2016-12-19] MEDS: prednisoLONE ACETATE 1% OPHT SUSP 5 ML BTL EACH EYE SCH (08:49)
[2016-12-19] MEDS: GABAPENTIN 300 MG CAP PO SCH (08:49)
[2016-12-19] MEDS: BUDESONIDE-FORMOTEROL 160/4.5 MCG INHALER INH SCH (08:49)
[2016-12-19] MEDS: POTASSIUM CHLORIDE 10 MEQ CONTROLLED RELEASE TAB PO SCH (08:49)
[2016-12-19] MEDS: METOPROLOL TARTRATE 25 MG TAB PO SCH (08:49)
[2016-12-19] MEDS: PANTOPRAZOLE SOD 40 MG DELAYED RELEASE TAB PO SCH (08:49)
[2016-12-19] MEDS: FUROSEMIDE 20 MG TAB PO SCH (08:49)
[2016-12-19] MEDS: SODIUM CHLORIDE 0.9% FLUSH 5 ML FLUSH FLUSH SCH (08:50)
--- NOTE | 2016-12-19 09:55 | HHI.PR ---
Subjective Remarks Follow-up for pneumonia. The patient feels much better today and wants to go home. He denies any cough, chest pain, shortness breath, nausea, vomiting. Tolerating diet. Objective Vitals Vital Signs Date Time Temp Pulse Resp B/P Pulse Ox O2 Delivery O2 Flow Rate FiO2 12/19/16 08:00 97.1 75 20 137/95 95 12/19/16 04:00 97.1 53 20 117/54 96 12/19/16 00:14 49 12/19/16 00:00 97.7 52 20 137/70 96 12/18/16 20:00 97.9 55 20 127/59 96 12/18/16 15:00 98.9 84 20 129/71 94 12/18/16 11:35 98.1 78 20 159/76 95 I/O 12/18/16 12/18/16 12/18/16 12/19/16 12/19/16 12/19/16 07:00 15:00 23:00 07:00 15:00 23:00 Intake Total 480 ml 120 ml Output Total 250 ml 200 ml Balance 230 ml -80 ml Intake Oral 480 ml 120 ml Output Urine Total 250 ml 200 ml Result Diagram: 12/17/16 1658 12/17/16 1658 Imaging Last Impressions Chest X-Ray 12/17/16 1630 Signed Impressions: Service Date/Time: Saturday, December 17, 2016 16:28 - CONCLUSION: Subtle airspace opacity at the left lung base could represent atelectasis or mild consolidation. Chao Mcneil MD Objective Remarks GENERAL: Well-developed well-nourished. In no acute distress. SKIN: Warm and dry. No lesions noted. HEENT: Normocephalic. Pupils equal and round. Mucous membranes pink and moist. CARDIOVASCULAR: Regular rate and rhythm. No murmur appreciated. RESPIRATORY: No accessory muscle use. Clear to auscultation. Breath sounds equal bilaterally. GASTROINTESTINAL: Abdomen soft, non-tender, nondistended. Bowel sounds x4. MUSCULOSKELETAL: No obvious deformities. No clubbing or cyanosis. No edema. NEUROLOGICAL: Awake and alert. No focal neurological deficits. Moves upper and lower extremities spontaneously. Normal speech. PSYCHIATRIC: Appropriate mood and affect; insight and judgment normal. A/P Problem List: (1) Pneumonia ICD Code: J18.9 Status: Acute (2) Elevated troponin I level ICD Code: R79.89 Status: Acute Assessment and Plan 71-year-old male with history of COPD, HTN, HLD, CHF, DM, GERD, arthritis, presents with a 2 day history of procutive cough, nasal congestion, sweats/ chills. Upon arrival, diagnosed with pneumonia on CXR, given abx, the patient was to be sent home from the ER, however troponin was elevated at 0.08. ER MD contacted the patient's racquet maker Dr. Singh who recommended the patient stay in the hospital for further evaluation. The patient also sees sponge hooker Dr. Kuhn. Community Acquired Pneumonia: CXR showed airspace opacity at the left lung base consistent with mild consolidation. -Received IV Levaquin, continue oral course -Supportive treatment with Mucinex bid, Tessalon prn cough -Duonebs q8h kunal and q4h prn Elevated Troponins: patient with no complaints of chest pain. Troponins elevated but flat at 0.08 x4. The patient has persistently elevated troponins on all previous visits. -Cardiology consulted, continue conservative medical management, or for discharge from cardiology perspective COPD: does not appear to be in acute exacerbation -Continue patient's duonebs, Spiriva, Advair bid -O2 prn HTN/HLD/CHF: chronic, stable -continue patient's Losartan, metoprolol, Norvasc, statin, lasix Diabetes: chronic, stable -hold patient's metformin for now -continue glipizide -monitor Accu-cheks and cover with SSI DVT Prophylaxis: teds/SCDs Written by Jonathan Ibarra, acting as scribe for Dr. Otto on 12/19/16 at 09:54. The documentation accurately reflects the work performed [id number] by ma Dr. Otto on 12/19/16 at 09:54. Discharge Planning Discharge patient to home Condition on discharge: Improved Heart healthy diabetic Diet as tolerated Ad Raya activity Rx written: Levaquin Follow-up with primary care physician Problem Qualifiers (1) Pneumonia: Qualified Code: J18.1 - Pneumonia of left lower lobe due to infectious organism Jonathan Ibarra Dec 19, 2016 09:55 Stefani Otto MD Dec 19, 2016 12:57
[2016-12-19] MEDS ORDERED: LEVO750T33 PO (09:57)
[2016-12-19 12:00] VITALS: BP 139/63; PULSE 55; RESP 20; TEMP 98; O2SAT 96
[2017-01-15] MEDS ORDERED: MAGN400T14 PO (14:12)
[2017-01-15] MEDS ORDERED: FERR1TAB36 PO (14:12)
[2017-01-15] MEDS ORDERED: TAMS0.4C4 PO (14:27)
== END 2016-12-19 14:14 | disposition home or self-care (01) ==
LOC: NEPC 16:01 → NEDA 22:22 → NEDH 12-18 02:22 → NEPFCDU 12-18 04:09
PROVIDERS: ADMIT Hospitalist; ATTEND Hospitalist
DX: J18.1 Lobar pneumonia, unspecified organism (principal); J44.0 Chronic obstructive pulmonary disease with (acute) lower respiratory infection; I25.10 Atherosclerotic heart disease of native coronary artery without angina pectoris; I10 Essential (primary) hypertension; R94.31 Abnormal electrocardiogram [ECG] [EKG]; R74.8 Abnormal levels of other serum enzymes; I25.2 Old myocardial infarction; J45.909 Unspecified asthma, uncomplicated; E11.9 Type 2 diabetes mellitus without complications; E78.5 Hyperlipidemia, unspecified; I50.9 Heart failure, unspecified; K21.9 Gastro-esophageal reflux disease without esophagitis; E78.00 Pure hypercholesterolemia, unspecified; H91.90 Unspecified hearing loss, unspecified ear; Z86.73 Personal history of transient ischemic attack (TIA), and cerebral infarction without residual deficits; Z87.442 Personal history of urinary calculi; Z79.899 Other long term (current) drug therapy; Z98.1 Arthrodesis status
CPT/HCPCS: 71010; 80048; 82550; 82552; 82948; 83880; 84484; 85025; 87040; 87804; 93005; 94640; 94664; 96374; 96375; 99284; G0378; J0696; J1956

== ENCOUNTER 2017-06-09 17:30 | Observation (INO) | payer OTHER, MEDICAID ==
[~2017-06-09] VITALS: Ht 182.9 cm; Wt 100.0 kg
[~2017-06-09 17:30] MED LIST changes: -1-ME1LIQ PO; +ADVA250A INH; -ADVAI250I PO; +AMLO10TA2 PO; -ASPI81TA82 PO; +ATOR40TA16 PO; -ATOR40TA49 PO; +BACL20TA PO; -CENTTAB9 PO; -CETI10 PO; -DUONI NEB; -ENOX30P SQ; +FERR1TAB36 PO; -FLON0.053 EACH NARE; -FURO20 PO; +FURO20TA PO; -GABA300C3 PO; +GABA300C5 PO; +GLIP10TA6 PO; +IPRAAER INH; +LOSA25TA PO; -LOSA25TA31 PO; +MAGN400T14 PO; -MAGN500T4 PO; +METF1000 PO; -METO25 PO; +METO25TA3 PO; -MONT10 PO; +MONT10TA4 PO; +OMEP40CA2 PO; -PERC5TAB12 PO; -POTA10IN2 PO; +POTA10TA8 PO; +PRED1SUS EACH EYE; -PRIL40CA PO; +TAMS0.4C4 PO; -TAMS0.4C67 PO; +TRAZ50TA12 PO; +VENTAER INH; -Z.0.OXYGENDME NC; -ZOFR8TAB PO
[2017-06-09 17:53] VITALS: O2SAT 98
[2017-06-09 17:54] VITALS: BP 171/75; PULSE 63; RESP 16; TEMP 98.2; O2SAT 98
--- NOTE | 2017-06-09 18:15 | PD ---
HPI Chief Complaint: dizziness and low blood sugar. Time Seen by Provider: 17:43 Travel History International Travel<30 days: No Contact w/Intl Traveler<30days: No Traveled to known affect area: No History of Present Illness HPI This is a 72-year-old male with history of hyperlipidemia, hypertension, COPD, diabetes mother's, who presents here after noting that his blood sugar continues to drop since yesterday. The patient states he's not been feeling well and has been noticing his blood sugar which is normally around 100, has been hovering in the 50s and 60s. He states he called his primary care doctor and was told to cut his glipizide and half. Despite this, his blood sugar is still been trending on the low side. He reports feeling dizzy and lightheaded. He denies any chest pain, chest pressure. He denies any shortness of breath. The patient states that he's been drinking plenty of fluids. He does report that he was taken off his Advair and started on Kalani recently. PFSH Past Medical History Anemia: Yes Arthritis: Yes Asthma: Yes Autoimmune Disease: No Blood Disorders: No Anxiety: No Depression: No Heart Rhythm Problems: Yes Cancer: No Cardiac Catheterization: Yes (1991 NO STENTS PLACED) Cardiovascular Problems: Yes High Cholesterol: Yes Chemotherapy: No Chest Pain: Yes COPD: Yes Cerebrovascular Accident: Yes Diabetes: Yes Diminished Hearing: Yes (RIGHT) Diverticulitis: Yes Endocrine: Yes Gastrointestinal Disorders: Yes (DIVERTICULOSIS) GERD: Yes Genitourinary: No Headaches: Yes Hepatitis: No Hiatal Hernia: No Hypertension: Yes Immune Disorder: No Implanted Vascular Access Dvce: Yes Kidney Stones: Yes Musculoskeletal: Yes (ARTHRITIS) Neurologic: Yes Psychiatric: No Reproductive: No Respiratory: Yes Immunizations Current: Yes Migraines: No Myocardial Infarction: Yes (NSTEMI) Pneumonia: Yes Radiation Therapy: No Renal Failure: No Seizures: Yes Sickle Cell Disease: No Sleep Apnea: No Thyroid Disease: No Triglycerides - High: Yes Ulcer: No Past Surgical History Abdominal Surgery: No AICD: No Arteriovenous Shunt: No Body Medical Devices: CERVICAL HARDWARE Cardiac Surgery: Yes Ear Surgery: No Endocrine Surgery: No Eye Surgery: No Genitourinary Surgery: Yes Gynecologic Surgery: No Insulin Pump: No Joint Replacement: No Neurologic Surgery: Yes (ANT. CERVICAL FUSION) Oral Surgery: Yes (DENTAL EXTRACTION) Pacemaker: No Thoracic Surgery: No Tonsillectomy: Yes Other Surgery: Yes (SPINAL FUSION C2,3,4,5,6) Social History Alcohol Use: No Tobacco Use: No Substance Use: No Allergies-Medications (Allergen,Severity, Reaction): Coded Allergies: Erythromycin (Verified Allergy, Severe, RASH, HIVES, SOB, 06/09/17) Gentamicin (Verified Allergy, Severe, RASH/SOB, 06/09/17) PT STATES HE IS NOT ALLERGIC Reported Meds & Prescriptions Reported Meds & Active Scripts Active Tamsulosin (Tamsulosin HCl) 0.4 Mg Cap 0.4 Mg PO HS take 2 tabs po QHS Reported Novolin N Inj (Insulin Human NPH) 1,000 Unit/10 Ml Vial 30 Units SQ ONCE Novolin N Inj (Insulin Human NPH) 1,000 Unit/10 Ml Vial 50 Units SQ ONCE Spiriva Handihaler (Tiotropium Inh) 18 Mcg Cap 18 Mcg INH DAILY 1 capsule = 18 mcg Ventolin Hfa 18 GM Inh (Albuterol Sulfate) 90 Mcg/Act Aer 1 Puff INH Q4H PRN Trazodone (Trazodone HCl) 50 Mg Tab 50 Mg PO HS Baclofen 20 Mg Tab 20 Mg PO TID Glipizide 10 Mg Tab 10 Mg PO BIDAC Take 30 minutes before a meal Amlodipine (Amlodipine Besylate) 10 Mg Tab 10 Mg PO DAILY Atorvastatin (Atorvastatin Calcium) 40 Mg Tab 40 Mg PO HS Losartan (Losartan Potassium) 25 Mg Tab 25 Mg PO DAILY Furosemide 20 Mg Tab 20 Mg PO BID Montelukast (Montelukast Sodium) 10 Mg Tab 10 Mg PO HS Omeprazole 40 Mg Cap 40 Mg PO DAILY Metformin (Metformin HCl) 1,000 Mg Tab 1,000 Mg PO BIDPC With meals Metoprolol Tartrate 25 Mg Tab 25 Mg PO BID Gabapentin 300 Mg Cap 300 Mg PO TID Review of Systems Except as stated in HPI: all other systems reviewed are Neg General / Constitutional: No: Fever, Chills HENT: Positive: Lightheadedness, No: Headaches, Vertigo, Neck Pain Cardiovascular: No: Chest Pain or Discomfort, Palpitations Respiratory: No: Cough, Shortness of Breath Gastrointestinal: No: Nausea, Vomiting, Abdominal Pain Genitourinary: No: Frequency, Dysuria Musculoskeletal: No: Weakness, Pain Neurologic: Positive: Dizziness, No: Weakness, Headache, Paresthesia Physical Exam Narrative GENERAL: Well-developed well-nourished male in no acute respirator distress. SKIN: Focused skin assessment warm/dry. HEAD: Atraumatic. Normocephalic. EYES:No scleral icterus. No injection or drainage. ENT: No nasal bleeding or discharge. Mucous membranes pink and moist. NECK: Trachea midline. No JVD. Supple CARDIOVASCULAR: Regular rate and rhythm. No murmur appreciated. RESPIRATORY: No accessory muscle use. Clear to auscultation. Breath sounds equal bilaterally. GASTROINTESTINAL: Abdomen soft, non-tender, nondistended. MUSCULOSKELETAL: No obvious deformities. No clubbing. No cyanosis. No edema. NEUROLOGICAL: Awake and alert. No obvious cranial nerve deficits. Motor grossly within normal limits. Normal speech. Data Data Last Documented VS Vital Signs Date Time Temp Pulse Resp B/P Pulse Ox O2 Delivery O2 Flow Rate FiO2 06/09/17 19:00 54 20 133/60 99 Room Air 06/09/17 17:54 98.2 Orders Complete Blood Count With Diff (06/09/17 17:43) Comprehensive Metabolic Panel (06/09/17 17:43) Urinalysis - C+S If Indicated (06/09/17 17:43) Iv Access Insert/Monitor (06/09/17 17:43) Ecg Monitoring (06/09/17 17:43) Oximetry (06/09/17 17:43) Sodium Chlor 0.9% 1000 Ml Inj (Ns 1000 M (06/09/17 19:00) Labs Laboratory Tests Test 06/09/17 18:00 White Blood Count 5.0 TH/MM3 Red Blood Count 3.81 MIL/MM3 Hemoglobin 11.9 GM/DL Hematocrit 35.5 % Mean Corpuscular Volume 93.1 FL Mean Corpuscular Hemoglobin 31.1 PG Mean Corpuscular Hemoglobin 33.4 % Concent Red Cell Distribution Width 13.8 % Platelet Count 244 TH/MM3 Mean Platelet Volume 7.3 FL Neutrophils (%) (Auto) 55.7 % Lymphocytes (%) (Auto) 30.2 % Monocytes (%) (Auto) 9.2 % Eosinophils (%) (Auto) 4.2 % Basophils (%) (Auto) 0.7 % Neutrophils # (Auto) 2.8 TH/MM3 Lymphocytes # (Auto) 1.5 TH/MM3 Monocytes # (Auto) 0.5 TH/MM3 Eosinophils # (Auto) 0.2 TH/MM3 Basophils # (Auto) 0.0 TH/MM3 CBC Comment DIFF FINAL Differential Comment Sodium Level 141 MEQ/L Potassium Level 3.7 MEQ/L Chloride Level 107 MEQ/L Carbon Dioxide Level 27.0 MEQ/L Anion Gap 7 MEQ/L Blood Urea Nitrogen 20 MG/DL Creatinine 1.28 MG/DL Estimat Glomerular Filtration 56 ML/MIN Rate Random Glucose 97 MG/DL Calcium Level 8.9 MG/DL Total Bilirubin 0.3 MG/DL Aspartate Amino Transf 13 U/L (AST/SGOT) Alanine Aminotransferase 28 U/L (ALT/SGPT) Alkaline Phosphatase 77 U/L Total Protein 7.4 GM/DL Albumin 4.0 GM/DL [facility] Medical Decision Making Medical Screen Exam Complete: Yes Emergency Medical Condition: Yes Differential Diagnosis Persistent hypoglycemia versus medication reaction versus metabolic derangement. Narrative Course 72-year-old male presents with complaints of dizziness and persistent low blood sugars. The patient had his glipizide Halfed a day and a half ago secondary to his blood sugars trending low. He states today it was still low. He reports he called his doctor's office and they told him to come here for evaluation. The patient also reports dizziness. He denies any chest pain, chest pressure. Formal blood sugar here is 93. He does have an elevated BUN which is likely secondary to prerenal azotemia. He's been given 1 L of IV fluid. I anticipate he'll be able to go home. I would like to observe him for at least another hour to make sure his blood sugar does not trending down. If not, he'll be discharged home and told to stop his glipizide and follow up with his primary care physician. Dr. Galarza, physician replacing me, will follow up with his blood sugar after 8 PM. She will also check for his dizziness. If all were in order, we will recommend that we hold his glipizide and follow up with his primary care physician. Diagnosis Primary Impression: Dehydration Additional Impression: Hypoglycemia Additional Instructions: Stop. Glipizide. Follow up with her primary care physician this week. Bharathi Deluca MD Jun 09, 2017 18:15
[2017-06-09 18:17] LABS: AUTOMATED NEUTROPHIL # 2.8 TH/MM3 (1.8-7.7); BASOPHIL % 0.7 % (0.0-2.0); EOSINOPHIL # 0.2 TH/MM3 (0-0.4); EOSINOPHIL % 4.2 % (0.0-4.0); HEMATOCRIT 35.5 % (39.0-51.0); HEMO FLAGS DIFF FINAL; LYMPH % 30.2 % (9.0-44.0); LYMPHOCYTE # 1.5 TH/MM3 (1.0-4.8); MEAN CELL VOLUME 93.1 FL (80.0-100.0); MEAN CORPUSCULAR HEMOGLOBIN 31.1 PG (27.0-34.0); MEAN CORPUSCULAR HGB CONC 33.4 % (32.0-36.0); MONO % 9.2 % (0.0-8.0); NEUT % 55.7 % (16.0-70.0); PLATELET COUNT 244 TH/MM3 (150-450); RED BLOOD COUNT 3.81 MIL/MM3 (4.50-5.90); RED CELL DISTRIBUTION WIDTH 13.8 % (11.6-17.2)
[2017-06-09 18:43] LABS: ALT (GPT) 28 U/L (12-78); ANION GAP 7 MEQ/L (5-15); AST (GOT) 13 U/L (15-37); BLOOD UREA NITROGEN 20 MG/DL (7-18); CHLORIDE 107 MEQ/L (98-107); GLOMERULAR FILTRATION RATE 56 ML/MIN (>89); POTASSIUM 3.7 MEQ/L (3.5-5.1); SODIUM (NA) 141 MEQ/L (136-145)
[2017-06-09 18:46] LABS: ALKALINE PHOSPHATASE 77 U/L (45-117); TOTAL BILIRUBIN ADULT 0.3 MG/DL (0.2-1.0)
[2017-06-09 19:00] VITALS: BP 133/60; PULSE 54; RESP 20; O2SAT 99
[2017-06-09] MEDS ORDERED: SODIUM CHLOR 0.9% 1000 ML INJ 1,000 ML IV ONE (19:00)
--- NOTE | 2017-06-09 19:21 | PD ---
Physical Exam Narrative General: The patient is a well-developed well-nourished male in no acute distress. Head and Neck exam: Head is normocephalic atraumatic. Eyes: EOMI, pupils are equal round and reactive to light. Nose: Midline septum with pink mucous membranes Mouth: Dentition unremarkable. Moist mucus membranes. Posterior oropharynx is not erythematous. No tonsillar hypertrophy. Uvula midline. Airway patent. Neck: No palpable lymphadenopathy. No nuchal rigidity. No thyromegaly. Cardiovascular: Irregularly irregular with a rate in the 50s to 60s consistent with his history of atrial fibrillation without murmurs, gallops, or rubs. Lungs: Clear to auscultation bilaterally. No wheezes, rhonchi, or rales. Abdomen: Soft, without tenderness to palpation in all 4 quadrants of the abdomen. No guarding, rebound, or rigidity. Normal bowel sounds are audible. No tenderness on palpation of McBurney's point. Extremities: No clubbing, cyanosis, or edema. 2+ pulses in all 4 extremities. No calf tenderness on palpation. Back: No costovertebral angle tenderness to palpation. Neurologic Exam: Grossly nonfocal. Skin Exam: No rash noted. Intact skin that is warm and dry. Data Data Last Documented VS Vital Signs Date Time Temp Pulse Resp B/P Pulse Ox O2 Delivery O2 Flow Rate FiO2 06/09/17 19:00 54 20 133/60 99 Room Air 06/09/17 17:54 98.2 Orders Complete Blood Count With Diff (06/09/17 17:43) Comprehensive Metabolic Panel (06/09/17 17:43) Urinalysis - C+S If Indicated (06/09/17 17:43) Iv Access Insert/Monitor (06/09/17 17:43) Ecg Monitoring (06/09/17 17:43) Oximetry (06/09/17 17:43) Sodium Chlor 0.9% 1000 Ml Inj (Ns 1000 M (06/09/17 19:00) Electrocardiogram (06/09/17 19:26) Chest, Single Ap (06/09/17 19:26) Orthostatic Vital Signs (06/09/17 19:26) Blood Glucose (06/09/17 20:13) Diet As Tolerated (06/09/17 21:18) Vital Signs (Adult) Q4H (06/09/17 21:22) Activity Oob With Assistance (06/09/17 21:22) Filter Washer And Presser / Telemetry .CONTINUOUS (06/09/17 21:22) Diet 1800 Ada Cons Carb (06/10/17 Breakfast) Sodium Chloride 0.9% Flush (Ns Flush) (06/09/17 21:30) Sodium Chloride 0.9% Flush (Ns Flush) (06/10/17 09:00) Basic Metabolic Panel (Bmp) (06/10/17 06:00) Complete Blood Count With Diff (06/10/17 06:00) Naloxone Inj (Narcan Inj) (06/09/17 21:30) Place In Observation (06/09/17 ) Dext 5%-Nacl 0.45% 1000 Ml Inj (D5w-/2 (06/09/17 21:30) Admit Order (Ed Use Only) (06/09/17 21:28) Labs Laboratory Tests Test 06/09/17 06/09/17 18:00 19:11 White Blood Count 5.0 TH/MM3 Red Blood Count 3.81 MIL/MM3 Hemoglobin 11.9 GM/DL Hematocrit 35.5 % Mean Corpuscular Volume 93.1 FL Mean Corpuscular Hemoglobin 31.1 PG Mean Corpuscular Hemoglobin 33.4 % Concent Red Cell Distribution Width 13.8 % Platelet Count 244 TH/MM3 Mean Platelet Volume 7.3 FL Neutrophils (%) (Auto) 55.7 % Lymphocytes (%) (Auto) 30.2 % Monocytes (%) (Auto) 9.2 % Eosinophils (%) (Auto) 4.2 % Basophils (%) (Auto) 0.7 % Neutrophils # (Auto) 2.8 TH/MM3 Lymphocytes # (Auto) 1.5 TH/MM3 Monocytes # (Auto) 0.5 TH/MM3 Eosinophils # (Auto) 0.2 TH/MM3 Basophils # (Auto) 0.0 TH/MM3 CBC Comment DIFF FINAL Differential Comment Sodium Level 141 MEQ/L Potassium Level 3.7 MEQ/L Chloride Level 107 MEQ/L Carbon Dioxide Level 27.0 MEQ/L Anion Gap 7 MEQ/L Blood Urea Nitrogen 20 MG/DL Creatinine 1.28 MG/DL Estimat Glomerular Filtration 56 ML/MIN Rate Random Glucose 97 MG/DL Calcium Level 8.9 MG/DL Total Bilirubin 0.3 MG/DL Aspartate Amino Transf 13 U/L (AST/SGOT) Alanine Aminotransferase 28 U/L (ALT/SGPT) Alkaline Phosphatase 77 U/L Total Protein 7.4 GM/DL Albumin 4.0 GM/DL Urine Color YELLOW Urine Turbidity CLEAR Urine pH 6.0 Urine Specific [place] 1.013 Urine Protein TRACE mg/dL Urine Glucose (UA) NEG mg/dL Urine Ketones NEG mg/dL Urine Occult Blood NEG Urine Nitrite NEG Urine Bilirubin NEG Urine Urobilinogen LESS THAN 2.0 MG/DL Urine Leukocyte Esterase NEG Urine RBC LESS THAN 1 /hpf Urine WBC LESS THAN 1 /hpf Urine Bacteria RARE /hpf Microscopic Urinalysis Comment CULT NOT INDICATED MDM Medical Record Reviewed: Yes Supervised Visit with MASON: No Interpretation(s) Last Impressions Chest X-Ray 06/09/[id number] Signed Impressions: Service Date/Time: Friday, June 09, 2017 19:37 - CONCLUSION: No acute disease. Ancelmo Vee MD Narrative Course During the course of the patients emergency department visit, the patients history, examination, and differential diagnosis were reviewed with the patient. The patient had IV access obtained and blood work sent for analysis. The patient was placed on a teletypesetter monitor with oximetry and blood pressure monitoring. The patient's case was checked out to me by Dr. Deluca requested that I rechecked the patient's blood sugar at 8:15 PM. The patient reports having a history of recent problems with hypoglycemia. His glipizide was recently decreased by half, however he is persistently hypoglycemic intermittently throughout the day today. If the patient remains euglycemic the patient can be discharged with his glipizide held. The patient was initially provided oral glucose prior to arrival by ambulance services. The patient was additionally given normal saline 1 L IV fluid bolus in the emergency department by Dr. Deluca. The patients laboratory studies were reviewed and remarkable for a white count 5, hemoglobin 11.9, platelets 244 with 9.2 monocytes, CMP is remarkable for BUN of 20, GFR 56, AST 13. Orthostatic vital signs have been added to the patient' s workup. An ECG has been ordered given the patient's relative bradycardia, however the patient reports that 2 years ago he had a fast rhythm was placed on metoprolol. He reports that his heart rate has been down into the 40s at times. He reports that after stabilizing on the metoprolol his heart rate has been up into the 50s to 60s. He reports that this is monitored by his tube coater, Dr. Singh. The patient's ECG reveals a sinus bradycardia with a sinus arrhythmia, right bundle branch block, left anterior fascicular block, QRS duration is 146 ms, QTC 441 ms. Heart rate is 51. The patient's repeat blood sugar came down again to 64. The patient will be admitted for continued observation. Insulin and glipizide will be held. The patients results were discussed with the patient, including the plan of care. I explained that further testing and/ or monitoring is indicated based on the patients history, examination, and/ or laboratory findings. Therefore, I recommended admission for additional evaluation. The patient expressed understanding and was agreeable with this plan. The patient was admitted to the hospital in stable condition and [facility] Diagnosis Primary Impression: Dehydration Additional Impressions: Hypoglycemia Bradycardia Referrals: Primary Care Physician 2 days Patient Instructions: General Instructions, Hypoglycemia in Infancy (DC), Hypoglycemia in a Person with Diabetes (ED) Additional Instruction: Stop Glipizide. Follow up with your primary care physician this week. Med/Other Pt SpecificInfo: Med Stopped (glipizide should be held.) Orquidea Galarza MD Jun 09, 2017 19:21
--- NOTE | 2017-06-09 19:51 | RADRPT ---
EXAM DATE/TIME: 06/09/2017 19:37 [facility] COMPARISON: CHEST SINGLE AP, December 17, 2016, 16:28. INDICATIONS : Shortness of breath. MEDICAL HISTORY : Chronic obstructive pulmonary disease. SURGICAL HISTORY : None. ENCOUNTER: Initial ACUITY: 1 day PAIN SCORE: 0/10 LOCATION: Bilateral chest FINDINGS: A single view of the chest demonstrates the lungs to be symmetrically aerated without evidence of mas s, infiltrate or effusion. The cardiomediastinal contours are unremarkable. Osseous structures are intact. Linear scarring left lung base. Cardiomegaly. ACDF hardware cervical spine. CONCLUSION: No acute disease. Ancelmo Vee MD on June 09, 2017 at 19:49 Board Certified Radiologist. This report was verified electronically.
[2017-06-09 20:04] LABS: BACTERIA, URINE RARE /hpf; BLOOD, URINE NEG (NEG); COMMENT (UR) CULT NOT INDICATED; CULTURE IF INDICATED CULT NOT INDICATED; GLUCOSE,URINE NEG (NEG); KETONE, URINE NEG (NEG); NITRITE,URINE NEG (NEG); URINE COLOR YELLOW (YELLW/STRAW)
[2017-06-09 21:30] VITALS: BP 154/69; PULSE 48; RESP 22; O2SAT 99
[2017-06-09] MEDS ORDERED: SODIUM CHLORIDE 0.9% FLUSH 10 ML FLUSH IV FLUSH PRN (21:30)
[2017-06-09] MEDS ORDERED: NALOXONE HCL 0.4 MG/ML AMP IV PRN (21:30)
[2017-06-09 21:40] VITALS: BP_SYST 145; BP_SYST 197; BP_DIAS 68; BP_DIAS 80; BP_DIAS 81
[2017-06-09 22:00] VITALS: BP 119/81; PULSE 54; RESP 17; O2SAT 97
[2017-06-09] MEDS ORDERED: DEXT 5%-NACL 0.45% 1000 ML INJ 1,000 ML IV SCH (22:00)
[2017-06-10] VITALS (13 sets, daily range): BP systolic 142–183; BP diastolic 70–88; PULSE 47–81; RESP 16–19; TEMP 96.5–98.1; O2SAT 95–98
[2017-06-10] MEDS ORDERED: GLUCAGON 1 MG/ML VIAL OTHER PRN (01:30)
[2017-06-10] MEDS ORDERED: DEXTROSE 50% IN WATER 50 ML VIAL(D50) IV PRN (01:30)
--- NOTE | 2017-06-10 02:14 | HHI.HP ---
[facility] Robin Sheldon M.D. Admission Diagnosis hypoglycemia Diagnoses: Chief Complaint: low blood sugar Travel History International Travel<30 Days: No Contact w/Intl Traveler <30 Da: No Traveled to Known Affected Are: No History of Present Illness Written by NOHEMI Iqbal acting as scribe for [Kenneth] on 06/10/17 at 02: 07. 72 y/o male with a history of DM, HTN, hyperlipidemia, Systolic CHF (EF 45%), arthritis, gerd, copd and afib presented to the ED with complaints of dizziness and hypoglycemia for 2 weeks. Patient states recently his PCP has taken him off glipizide but he does still take insulin Novalin n, 40 am 30 hs. Since Friday night his sugars have been running in the 50s-60s despite eating. He went to [facility] today to have x-rays done and the people at the office thought he was drunk the way he was acting. He then went home and talked to his PCP who told him to come to the hospital to be evaluated. He denies any chest pain, sob , fever, chills, dysuria or blood in stools. he denies any loss of appetite or decrease in eating. His last dose of insulin was Friday night. PCP is Dr Sheldon Last ECHO 2014, EF 45% Review of Systems Constitutional: COMPLAINS OF: Dizziness, DENIES: Fever, Chills, Change in appetite Ears, nose, mouth, throat: DENIES: Vertigo Respiratory: DENIES: Cough, Shortness of breath Cardiovascular: DENIES: Chest pain, Lower Extremity Edema Gastrointestinal: DENIES: Constipation, Diarrhea, Nausea, Vomiting, Difficulty Swallowing Genitourinary: DENIES: Hematuria, Dysuria Musculoskeletal: DENIES: Neck pain Integumentary: DENIES: Rash Hematologic/lymphatic: DENIES: Lymphadenopathy Neurologic: DENIES: Headache, Localized weakness Psychiatric: DENIES: Confusion Past Family Social History Past Medical History DM HTN AFIB Hyperlipidemia COPD CHF Gerd Arthritis Past Surgical History C2-C6 Fusion RT ankle surgery Reported Medications Reported Meds & Active Scripts Active Tamsulosin (Tamsulosin HCl) 0.4 Mg Cap 0.4 Mg PO HS take 2 tabs po QHS Reported Novolin N Inj (Insulin Human NPH) 1,000 Unit/10 Ml Vial 30 Units SQ ONCE Novolin N Inj (Insulin Human NPH) 1,000 Unit/10 Ml Vial 50 Units SQ ONCE Spiriva Handihaler (Tiotropium Inh) 18 Mcg Cap 18 Mcg INH DAILY 1 capsule = 18 mcg Ventolin Hfa 18 GM Inh (Albuterol Sulfate) 90 Mcg/Act Aer 1 Puff INH Q4H PRN Trazodone (Trazodone HCl) 50 Mg Tab 50 Mg PO HS Baclofen 20 Mg Tab 20 Mg PO TID Glipizide 10 Mg Tab 10 Mg PO BIDAC Take 30 minutes before a meal Amlodipine (Amlodipine Besylate) 10 Mg Tab 10 Mg PO DAILY Atorvastatin (Atorvastatin Calcium) 40 Mg Tab 40 Mg PO HS Losartan (Losartan Potassium) 25 Mg Tab 25 Mg PO DAILY Furosemide 20 Mg Tab 20 Mg PO BID Montelukast (Montelukast Sodium) 10 Mg Tab 10 Mg PO HS Omeprazole 40 Mg Cap 40 Mg PO DAILY Metformin (Metformin HCl) 1,000 Mg Tab 1,000 Mg PO BIDPC With meals Metoprolol Tartrate 25 Mg Tab 25 Mg PO BID Gabapentin 300 Mg Cap 300 Mg PO TID Allergies: Coded Allergies: Erythromycin (Verified Allergy, Severe, RASH, HIVES, SOB, 06/09/17) Gentamicin (Verified Allergy, Severe, RASH/SOB, 06/09/17) PT STATES HE IS NOT ALLERGIC Active Ordered Medications Current Medications Medications (Trade) Dose Ordered Sig/Jeffery Route Start Time Stop Time Status Last Admin (NS Flush) 2 ml UNSCH PRN IV FLUSH 06/09/17 21:30 (NS Flush) 2 ml BID IV FLUSH 06/10/17 09:00 Naloxone HCl 0.4 mg 0.4 mg UNSCH PRN IV 06/09/17 21:30 (D5W-1/2 NS 1000 ml Inj) 1,000 ml @ 42 mls/hr [id number] IV 06/09/17 22:00 06/09/17 22:42 (D50w (Vial) Inj) 50 ml UNSCH PRN IV 06/10/17 01:30 (Glucagon Inj) 1 mg UNSCH PRN OTHER 06/10/17 01:30 (Ventolin Hfa Inh) 1 puff Q4H PRN INH 06/10/17 02:45 (Norvasc) 10 mg DAILY PO 06/10/17 09:00 (Lipitor) 40 mg HS PO 06/10/17 21:00 UNV (Lasix) 20 mg BID PO 06/10/17 09:00 UNV (Neurontin) 300 mg TID PO 06/10/17 09:00 UNV (Cozaar) 25 mg DAILY PO 06/10/17 09:00 UNV (Singulair) 10 mg HS PO 06/10/17 21:00 UNV (Flomax) 0.4 mg HS PO 06/10/17 21:00 UNV (Spiriva Inh) 18 mcg DAILY INH 06/10/17 09:00 UNV Non-Formulary Medication 40 mg DAILY PO 06/10/17 09:00 UNV Family History Dad: hypocalcemia Mom: unknown cancer Social History Tobacco use: Denies, 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 SKIN: No rashes, ecchymoses or lesions. Cool and dry. HEAD: Atraumatic. Normocephalic. No temporal or scalp tenderness. EYES: Pupils equal round and reactive. Extraocular motions intact. ENT: Nose without bleeding, purulent drainage or septal hematoma. Airway patent. NECK: Trachea midline. No JVD or lymphadenopathy. CARDIOVASCULAR: Regular rate and rhythm without murmurs, gallops, or rubs. RESPIRATORY: Clear to auscultation. Breath sounds equal bilaterally. No wheezes , rales, or rhonchi. GASTROINTESTINAL: Abdomen soft, non-tender, nondistended. No hepato-splenomegaly , or palpable masses. No guarding. MUSCULOSKELETAL: Extremities without clubbing, cyanosis, or edema. No joint tenderness, effusion, or edema noted. No calf tenderness. NEUROLOGICAL: Awake and alert. Motor and sensory grossly within normal limits. Normal speech. Laboratory Laboratory Tests Test 06/09/17 06/09/17 18:00 19:11 White Blood Count 5.0 Red Blood Count 3.81 Hemoglobin 11.9 Hematocrit 35.5 Mean Corpuscular Volume 93.1 Mean Corpuscular Hemoglobin 31.1 Mean Corpuscular Hemoglobin 33.4 Concent Red Cell Distribution Width 13.8 Platelet Count 244 Mean Platelet Volume 7.3 Neutrophils (%) (Auto) 55.7 Lymphocytes (%) (Auto) 30.2 Monocytes (%) (Auto) 9.2 Eosinophils (%) (Auto) 4.2 Basophils (%) (Auto) 0.7 Neutrophils # (Auto) 2.8 Lymphocytes # (Auto) 1.5 Monocytes # (Auto) 0.5 Eosinophils # (Auto) 0.2 Basophils # (Auto) 0.0 CBC Comment DIFF FINAL Differential Comment Sodium Level 141 Potassium Level 3.7 Chloride Level 107 Carbon Dioxide Level 27.0 Anion Gap 7 Blood Urea Nitrogen 20 Creatinine 1.28 Estimat Glomerular Filtration 56 Rate Random Glucose 97 Calcium Level 8.9 Total Bilirubin 0.3 Aspartate Amino Transf 13 (AST/SGOT) Alanine Aminotransferase 28 (ALT/SGPT) Alkaline Phosphatase 77 Total Protein 7.4 Albumin 4.0 Urine Color YELLOW Urine Turbidity CLEAR Urine pH 6.0 Urine Specific Gideon 1.013 Urine Protein TRACE Urine Glucose (UA) NEG Urine Ketones NEG Urine Occult Blood NEG Urine Nitrite NEG Urine Bilirubin NEG Urine Urobilinogen LESS THAN 2.0 Urine Leukocyte Esterase NEG Urine RBC LESS THAN 1 Urine WBC LESS THAN 1 Urine Bacteria RARE Microscopic Urinalysis Comment CULT NOT INDICATED Result Diagram: 06/09/17 1800 06/09/17 1800 Imaging Last Impressions Chest X-Ray 06/09/171925 Signed Impressions: Service Date/Time: Friday, June 09, 2017 19:37 - CONCLUSION: No acute disease. Ancelmo Vee MD Assessment and Plan Problem List: (1) Hypoglycemia ICD Code: E16.2 Status: Acute (2) Dizziness ICD Code: R42 Status: Acute (3) HTN (hypertension) ICD Code: I10 Status: Chronic (4) CHF (congestive heart failure) ICD Code: I50.9 Status: Chronic Assessment and Plan 72 y/o male with a history of DM, HTN, hyperlipidemia, copd and afib presented to the ED with complaints of dizziness and hypoglycemia for 2 weeks. Hypoglycemia, Blood sugars labile despite eating -Hold all sugar lowering home medications -IVF with D5NS, will d/c if BS reaches 200 -Accu checks Q3h Patient is currently on NPH 40 units in a.m., with 30 units NPH in p.m. He states he was also taking glipizide 10 mg twice a day which was decreased to 10 mg once a day starting a few days ago. I do believe that this patient should be off glipizide completely. Moreover, his NPH doses are likely quite too high. He is informed of this and probably safest to discharge him on much lower doses of NPH such as 15 units twice a day with close monitor by PCP within a few days. There was no evidence of infection/acute PR/CVA/GI bleeds to explain for his hypoglycemic episodes. Dizziness, likely related to low blood sugar -Orthostatic blood pressures ordered -Monitor tele -Hold metoprolol for now due to bradycardia HTN, chronic, currently stable -Cont home medications: losartan, and amlodipine CHF, systolic, EF 45% 2014, chronic -Watch for fluid overload -Resume home Lasix DVT prophylaxis: SCDs This note was transcribed by scribdanay [Elizabeth Luong]. I, Dr. Gary Cooper personally performed the history, physical exam, and medical decision making; and confirmed the accuracy of the information in the transcribed note. Authenticated by Dr. Gary Cooper on 06/10/17 at 02:07. Discussed Condition With Patient, RN and ED physician Elizabeth Luong Jun 10, 2017 02:14 Gary Cooper MD Jun 10, 2017 07:32
[2017-06-10 05:43] LABS: BASOPHIL % 0.8 % (0.0-2.0); EOSINOPHIL # 0.2 TH/MM3 (0-0.4); EOSINOPHIL % 4.9 % (0.0-4.0); HEMATOCRIT 33.5 % (39.0-51.0); HEMO FLAGS DIFF FINAL; LYMPH % 37.5 % (9.0-44.0); LYMPHOCYTE # 1.7 TH/MM3 (1.0-4.8); MEAN CELL VOLUME 92.1 FL (80.0-100.0); MEAN CORPUSCULAR HEMOGLOBIN 31.8 PG (27.0-34.0); MEAN CORPUSCULAR HGB CONC 34.5 % (32.0-36.0); MONO % 11.4 % (0.0-8.0); NEUT % 45.4 % (16.0-70.0); PLATELET COUNT 219 TH/MM3 (150-450); RED BLOOD COUNT 3.63 MIL/MM3 (4.50-5.90); RED CELL DISTRIBUTION WIDTH 13.3 % (11.6-17.2); WHITE BLOOD COUNT 4.4 TH/MM3 (4.0-11.0)
[2017-06-10 06:09] LABS: BICARBONATE 25.9 MEQ/L (21.0-32.0); POTASSIUM 3.8 MEQ/L (3.5-5.1)
[2017-06-10] MEDS: TIOTROPIUM BROMIDE 18 MCG INH INH SCH (09:00)
[2017-06-10] MEDS ORDERED: METOPROLOL TARTRATE 25 MG TAB PO SCH (09:00)
[2017-06-10] MEDS: SODIUM CHLORIDE 0.9% FLUSH 10 ML FLUSH IV FLUSH SCH ×2 (09:00→21:29)
[2017-06-10] MEDS: ALBUTEROL SULFATE 90 MCG/ACT HFA 18 GM INHALER INH PRN ×2 (09:41→16:07)
[2017-06-10] MEDS: GABAPENTIN 300 MG CAP PO SCH ×2 (09:42→21:28)
[2017-06-10] MEDS: LOSARTAN 25 MG TAB PO SCH (09:42)
[2017-06-10] MEDS: PANTOPRAZOLE SOD 40 MG DELAYED RELEASE TAB PO SCH (09:42)
[2017-06-10] MEDS: FUROSEMIDE 20 MG TAB PO SCH ×2 (09:42→21:28)
[2017-06-10] MEDS ORDERED: PILL SPLITTER OTHER PRN (13:15)
[2017-06-10 15:51] LABS: HEMOGLOBIN A1a 1.1 %; HEMOGLOBIN LA1C 2.1 %
[2017-06-10] MEDS ORDERED: RESP: ALBUTEROL 2.5 MG/IPRATROPIUM 0.5 MG NEB (SCH) NEB ONE (17:00)
--- NOTE | 2017-06-10 17:09 | HHI.PR ---
Subjective Remarks Follow-up for dizziness. The patient states that his lightheadedness and dizziness have improved some since he came to the hospital. Lightheadedness and dizziness are worse whenever he sits or stands up. He states that his blood sugars have been running frequently in the 5070s. He states that he's been on Novolin in for 15 years, and his doses never been adjusted by a doctor, he has had decrease his dose due to low blood sugars. He reports his last A1c was 6.0. He was wondering if he could start on newer diabetes medications. 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 He has been tolerating oral intake. He states he has a history of fast heart rate and that is why he is on metoprolol. He states he has asthma, and is asking for breathing treatment. Objective Vitals Vital Signs Date Time Temp Pulse Resp B/P Pulse Ox O2 Delivery O2 Flow Rate FiO2 06/10/17 16:00 97.9 58 18 157/73 95 06/10/17 12:30 59 06/10/17 12:08 97.3 54 18 142/88 96 06/10/17 08:18 81 179/83 06/10/17 08:18 64 183/86 06/10/17 08:00 96.5 59 18 155/80 97 06/10/17 00:20 97.6 61 19 159/77 97 06/09/17 22:00 54 17 119/81 97 Room Air 06/09/17 21:40 55 145/80 56 145/68 76 197/81 06/09/17 21:30 48 22 154/69 99 Room Air 06/09/17 19:00 54 20 133/60 99 Room Air 06/09/17 17:54 98.2 63 16 171/75 98 06/09/17 17:53 98 Room Air 06/09/17 17:45 Room Air I/O 06/09/17 06/09/17 06/09/17 06/10/17 06/10/17 06/10/17 07:00 15:00 23:00 07:00 15:00 23:00 Intake Total 480 ml 720 ml Output Total 1000 ml 700 ml Balance -520 ml 20 ml Intake Oral 480 ml 720 ml Output Urine Total 1000 ml 700 ml Result Diagram: 06/10/17 0513 06/10/17 05 Imaging Last Impressions Chest X-Ray 06/09/171925 Signed Impressions: Service Date/Time: Friday, June 09, 2017 19:37 - CONCLUSION: No acute disease. Ancelmo Vee MD Objective Remarks GENERAL: Well-developed well-nourished. In no acute distress. SKIN: Warm and dry. No lesions noted. HEENT: Normocephalic. Pupils equal and round. Mucous membranes pink and moist. CARDIOVASCULAR: Regular rate and rhythm. No murmur appreciated. RESPIRATORY: No accessory muscle use. Clear to auscultation. Breath sounds equal bilaterally. GASTROINTESTINAL: Abdomen soft, non-tender, nondistended. Bowel sounds x4. MUSCULOSKELETAL: No obvious deformities. No clubbing or cyanosis. 1+ edema. NEUROLOGICAL: Awake and alert. No focal neurological deficits. Moves upper and lower extremities spontaneously. Normal speech. PSYCHIATRIC: Appropriate mood and affect; insight and judgment normal. A/P Problem List: (1) Hypoglycemia ICD Code: E16.2 Status: Acute (2) Dizziness ICD Code: R42 Status: Acute (3) HTN (hypertension) ICD Code: I10 Status: Chronic (4) CHF (congestive heart failure) ICD Code: I50.9 Status: Chronic Assessment and Plan 72 y/o male with a history of DM, HTN, hyperlipidemia, copd and afib presented to the ED with complaints of dizziness and hypoglycemia for 2 weeks. Diabetes mellitus with severe Hypoglycemia: The patient has been managing hypoglycemia at home for quite some time even having to decrease his own insulin doses. Home oral hypoglycemics and insulin were held. Blood glucose is now starting to increase to around 160. -DC IVF with D5NS -Accu checks Q3h -Start sliding scale coverage -Check hemoglobin A1c. -The patient will need decreased doses of insulin for discharge and likely discontinuing oral hypoglycemics as well. Dizziness: likely related to hyperglycemia. Non-orthostatic. Possible symptomatic bradycardia. -Monitor tele -Decrease metoprolol and add hold parameters. -Treat hypoglycemia as above -PT out of bed HTN, chronic, currently stable -Cont home medications: losartan, metoprolol, and amlodipine CHF, systolic, EF 45% 2014, chronic -Continue home Lasix and beta kylah Asthma: Does not appear to be in acute exacerbation. -Nebs as needed DVT prophylaxis: SCDs Problem Qualifiers (1) HTN (hypertension): Qualified Code: I10 - Essential hypertension Long,Jonathan D. PA Jun 10, 2017 17:09
--- NOTE | 2017-06-10 18:47 | EKG ---
Date Performed: 06/09/2017 Time Performed: 21:18:52 PTAGE: 72 years EKG: SINUS BRADYCARDIA WITH MARKED SINUS ARRHYTHMIA WITH FIRST DEGREE AV BLOCK RIGHT BUNDLE BRAN CH BLOCK LEFT ANTERIOR FASCICULAR BLOCK ABNORMAL ECG PREVIOUS TRACING : 12/18/2016 08.24 Compared to the previous tracing, probably no significant c pedro DOCTOR: Jim Vital Interpretating Date/Time 06/10/2017 18:46:35
[2017-06-10] MEDS ORDERED: RESP: ALBUTEROL 2.5 MG/IPRATROPIUM 0.5 MG NEB (PRN) NEB (20:00)
[2017-06-10] MEDS ORDERED: MONTELUKAST SODIUM 10 MG TAB PO SCH (21:00)
[2017-06-10] MEDS ORDERED: ATORVASTATIN 40 MG TAB PO SCH (21:00)
[2017-06-10] MEDS ORDERED: TAMSULOSIN HCL 0.4 MG CAP PO SCH (21:00)
[2017-06-10] MEDS: METOPROLOL TARTRATE 25 MG TAB PO SCH (21:00)
[2017-06-10] MEDS: INSULIN ASPART SUPPLEMENTAL SCALE SQ SCH (21:27)
[2017-06-11 00:10] VITALS: BP 139/71; PULSE 57; RESP 18; TEMP 98.4; O2SAT 96
[2017-06-11 03:25] VITALS: PULSE 60
[2017-06-11 04:58] VITALS: BP 134/74; PULSE 76; RESP 18; TEMP 97.3; O2SAT 97
[2017-06-11 08:08] VITALS: BP 147/69; PULSE 65; RESP 14; TEMP 98.1; O2SAT 95
[2017-06-11] MEDS: TIOTROPIUM BROMIDE 18 MCG INH INH SCH (08:42)
[2017-06-11] MEDS: LOSARTAN 25 MG TAB PO SCH (08:42)
[2017-06-11] MEDS: PANTOPRAZOLE SOD 40 MG DELAYED RELEASE TAB PO SCH (08:42)
[2017-06-11] MEDS: FUROSEMIDE 20 MG TAB PO SCH (08:43)
[2017-06-11] MEDS: METOPROLOL TARTRATE 25 MG TAB PO SCH (08:43)
[2017-06-11] MEDS: GABAPENTIN 300 MG CAP PO SCH (08:43)
[2017-06-11] MEDS: SODIUM CHLORIDE 0.9% FLUSH 10 ML FLUSH IV FLUSH SCH (08:44)
[2017-06-11] MEDS ORDERED: METO25TA3 PO (09:09)
[2017-06-11] MEDS ORDERED: NOVOLOGSS SQ (09:09)
--- NOTE | 2017-06-11 09:20 | HHI.PR ---
Subjective Remarks Follow-up for hyperglycemia. The patient states he feels better today than he has in the past 3 months. He has been ambulating in the room and to the restroom and denies any lightheadedness or dizziness. He states that he normally checks her records his blood sugar and notes how much insulin he is taking. He has a follow-up appointment with his PCP, Dr. Sheldon, next week. He is happy to go on sliding scale insulin for now. Objective Vitals Vital Signs Date Time Temp Pulse Resp B/P Pulse Ox O2 Delivery O2 Flow Rate FiO2 06/11/17 08:08 98.1 65 14 147/69 95 06/11/17 04:58 97.3 76 18 134/74 97 06/11/17 03:25 60 06/11/17 00:10 98.4 57 18 139/71 96 06/10/17 23:42 55 06/10/17 20:08 57 06/10/17 19:55 98.1 58 16 146/70 95 06/10/17 17:57 98 06/10/17 16:10 60 06/10/17 16:00 97.9 58 18 157/73 95 06/10/17 12:30 59 06/10/17 12:15 60 06/10/17 12:08 97.3 54 18 142/88 96 I/O 06/10/17 06/10/17 06/10/17 06/11/17 06/11/17 06/11/17 07:00 15:00 23:00 07:00 15:00 23:00 Intake Total 480 ml 720 ml Output Total 1000 ml 2000 ml 200 ml Balance -520 ml -1280 ml -200 ml Intake Oral 480 ml 720 ml Output Urine Total 1000 ml 2000 ml 200 ml # Voids 1 Result Diagram: 06/10/17 0513 06/10/17 0513 Imaging Last Impressions Chest X-Ray 06/09/171925 Signed Impressions: Service Date/Time: Friday, June 09, 2017 19:37 - CONCLUSION: No acute disease. Ancelmo Vee MD Objective Remarks GENERAL: Well-developed well-nourished. In no acute distress. SKIN: Warm and dry. No lesions noted. HEENT: Normocephalic. Pupils equal and round. Mucous membranes pink and moist. CARDIOVASCULAR: Regular rate and rhythm. No murmur appreciated. RESPIRATORY: No accessory muscle use. Clear to auscultation. Breath sounds equal bilaterally. GASTROINTESTINAL: Abdomen soft, non-tender, nondistended. Bowel sounds x4. MUSCULOSKELETAL: No obvious deformities. No clubbing or cyanosis. 1+ edema, chronic per patient. NEUROLOGICAL: Awake and alert. No focal neurological deficits. Moves upper and lower extremities spontaneously. Normal speech. PSYCHIATRIC: Appropriate mood and affect; insight and judgment normal. A/P Problem List: (1) Hypoglycemia ICD Code: E16.2 Status: Resolved (2) Dizziness ICD Code: R42 Status: Resolved (3) HTN (hypertension) ICD Code: I10 Status: Chronic (4) CHF (congestive heart failure) ICD Code: I50.9 Status: Chronic Assessment and Plan 72 y/o male with a history of DM, HTN, hyperlipidemia, copd and afib presented to the ED with complaints of dizziness and hypoglycemia for 2 weeks. Diabetes mellitus with severe Hypoglycemia: The patient has been managing hypoglycemia at home for quite some time even having to decrease his own insulin doses. Home oral hypoglycemics and insulin were held, and discontinued. Blood glucoses are now ranging from [id number] on sliding scale coverage. Likely over controlled on home hypoglycemics. We will A1c 6.4 -S/P IVF with D5NS -Monitoring Accu-Cheks, -Continue sliding scale coverage Dizziness: likely related to hyperglycemia. Non-orthostatic. Possible symptomatic bradycardia. Heart rate better controlled overnight with decreased metoprolol dose. Symptoms resolved with treatment. -Monitor tele, no bradycardia overnight today -Decreased metoprolol and added hold parameters. -Treat hypoglycemia as above -Follow-up with PCP and cardiology with decreased metoprolol dose HTN, chronic, currently stable -Cont home medications: losartan, metoprolol, and amlodipine CHF, systolic, EF 45% 2014, chronic -Continue home Lasix and beta kylah Asthma: Does not appear to be in acute exacerbation. -Nebs as needed DVT prophylaxis: SCDs Discharge Planning Discharge patient to home Condition on discharge: Improved Heart healthy diabetic Diet as tolerated Regular activity Rx written: NovoLog sliding scale, metoprolol Follow-up with primary care physician Problem Qualifiers (1) HTN (hypertension): Qualified Code: I10 - Essential hypertension (2) CHF (congestive heart failure): Qualified Code: I50.22 - Chronic systolic congestive heart failure Jonathan Ibarra Jun 11, 2017 09:20
[2017-06-11] MEDS: INSULIN ASPART SUPPLEMENTAL SCALE SQ SCH (11:00)
== END 2017-06-11 12:35 | disposition home or self-care (01) ==
LOC: NEPC 17:30 → NEDA 21:30 → NEPFCDU 23:42
PROVIDERS: ADMIT Internal Medicine; ATTEND Internal Medicine
DX: E11.649 Type 2 diabetes mellitus with hypoglycemia without coma (principal); E86.0 Dehydration; E11.65 Type 2 diabetes mellitus with hyperglycemia; R79.89 Other specified abnormal findings of blood chemistry; I49.8 Other specified cardiac arrhythmias; I45.10 Unspecified right bundle-branch block; I44.4 Left anterior fascicular block; R06.02 Shortness of breath; R00.1 Bradycardia, unspecified; I44.0 Atrioventricular block, first degree; I11.0 Hypertensive heart disease with heart failure; I50.22 Chronic systolic (congestive) heart failure; E78.5 Hyperlipidemia, unspecified; E78.00 Pure hypercholesterolemia, unspecified; J44.9 Chronic obstructive pulmonary disease, unspecified; I48.91 Unspecified atrial fibrillation; I25.2 Old myocardial infarction; K21.9 Gastro-esophageal reflux disease without esophagitis; H91.90 Unspecified hearing loss, unspecified ear; M19.90 Unspecified osteoarthritis, unspecified site; Z86.73 Personal history of transient ischemic attack (TIA), and cerebral infarction without residual deficits; Z79.899 Other long term (current) drug therapy; Z79.84 Long term (current) use of oral hypoglycemic drugs; Z79.4 Long term (current) use of insulin; Z98.1 Arthrodesis status
CPT/HCPCS: 71010; 80048; 80053; 81001; 82948; 83036; 85025; 93005; 94664; 96360; 96361; 99285; G0378; J1815; J7030

== ENCOUNTER 2017-08-24 12:40 | Emergency (ER) | payer OTHER, MEDICAID ==
[~2017-08-24] VITALS: Ht 182.9 cm; Wt 98.0 kg
[~2017-08-24 12:40] MED LIST changes: -ADVA250A INH; +ATOR1TAB18 PO; -ATOR40TA16 PO; -FERR1TAB36 PO; +FLUT1INH7 INH; -GLIP10TA6 PO; -IPRAAER INH; +IPRASOL INH; -MAGN400T14 PO; -METO25TA3 PO; +POTA10TA2 PO; -POTA10TA8 PO; -PRED1SUS EACH EYE; +TRAZ100T6 PO; -TRAZ50TA12 PO
[2017-08-24 12:54] VITALS: BP 133/72; PULSE 120; RESP 22; TEMP 99.5; O2SAT 95
[2017-08-24] MEDS ORDERED: SODIUM CHLOR 0.9% 1000 ML INJ 1,000 ML IV SCH ×2 (12:57→14:20)
[2017-08-24 12:59] VITALS: BP 126/69; PULSE 123; RESP 22; TEMP 99.5; O2SAT 95
[2017-08-24] MEDS ORDERED: ONDANSETRON HCL 4 MG/2 ML VIAL IV PUSH ONE (13:00)
--- NOTE | 2017-08-24 13:01 | PD ---
HPI Chief Complaint: GI Complaint Time Seen by Provider: 12:50 Travel History International Travel<30 days: No Contact w/Intl Traveler<30days: No Traveled to known affect area: No History of Present Illness HPI This is a 72-year-old male with history of COPD, hyperlipidemia, hypertension, diabetes, CHF(EF 45% echo 2015), atrial fibrillation, presents via EMS for evaluation of nausea, vomiting, diarrhea. Symptoms started this morning. He reports multiple episodes of brown watery stool as well as numerous episodes of vomiting. He has also had a productive cough with green sputum production for the past week. He denies any chest pain, shortness of breath, abdominal pain, fevers or chills, flank pain. Denies any sick contacts. He denies any unusual dietary changes. He reports that yesterday he had 2 hamburgers, green beans, potatoes, nothing unusual. He has no other complaints at this time. PFSH Past Medical History Anemia: Yes Arthritis: Yes Asthma: Yes Autoimmune Disease: No Blood Disorders: No Anxiety: No Depression: No Heart Rhythm Problems: Yes Cancer: No Cardiac Catheterization: Yes (1991 NO STENTS PLACED) Cardiovascular Problems: Yes High Cholesterol: Yes Chemotherapy: No Chest Pain: Yes (chest tightness with asthma ) Congestive Heart Failure: No (NO HX OF BUT BNP ELEVATED) COPD: Yes Cerebrovascular Accident: Yes Diabetes: Yes Diminished Hearing: Yes (RIGHT) Diverticulitis: Yes Endocrine: Yes Gastrointestinal Disorders: Yes (DIVERTICULOSIS) GERD: Yes Genitourinary: No Headaches: Yes Hepatitis: No Hiatal Hernia: No Hypertension: Yes Immune Disorder: No Implanted Vascular Access Dvce: Yes Kidney Stones: Yes Musculoskeletal: Yes (ARTHRITIS) Neurologic: No Psychiatric: No Reproductive: No Respiratory: Yes Immunizations Current: Yes Migraines: No Myocardial Infarction: Yes (NSTEMI) Pneumonia: Yes Radiation Therapy: No Renal Failure: No Seizures: Yes Sickle Cell Disease: No Sleep Apnea: No Thyroid Disease: No Triglycerides - High: Yes Ulcer: No Past Surgical History Abdominal Surgery: No AICD: No Arteriovenous Shunt: No Body Medical Devices: CERVICAL HARDWARE Cardiac Surgery: Yes Ear Surgery: No Endocrine Surgery: No Eye Surgery: No Genitourinary Surgery: Yes Gynecologic Surgery: No Insulin Pump: No Joint Replacement: No Neurologic Surgery: Yes (ANT. CERVICAL FUSION) Oral Surgery: Yes (DENTAL EXTRACTION) Pacemaker: No Thoracic Surgery: No Tonsillectomy: Yes Other Surgery: Yes (SPINAL FUSION C2,3,4,5,6) Social History Alcohol Use: No Tobacco Use: No Substance Use: No Allergies-Medications (Allergen,Severity, Reaction): Coded Allergies: erythromycin base (Unverified Allergy, Severe, RASH, HIVES, SOB, 08/24/17) gentamicin (Unverified Allergy, Severe, RASH/SOB, 08/24/17) PT STATES HE IS NOT ALLERGIC Reported Meds & Prescriptions Reported Meds & Active Scripts Active Zofran (Ondansetron HCl) 4 Mg Tab 4 Mg PO Q6HR PRN Tamsulosin (Tamsulosin HCl) 0.4 Mg Cap 0.4 Mg PO HS take 2 tabs po QHS Reported Novolin N Inj (Insulin Human NPH) 1,000 Unit/10 Ml Vial 25 SQ BID Sliding Scale As Directed. Trazodone (Trazodone HCl) 100 Mg Tablet 100 Mg PO HS Metformin (Metformin HCl) 1,000 Mg Tab 1,000 Mg PO BIDPC With meals Potassium Chloride ER (Potassium Chloride) 10 Meq Tab 10 Meq PO DAILY Amlodipine (Amlodipine Besylate) 10 Mg Tab 10 Mg PO DAILY Atorvastatin (Atorvastatin Calcium) 80 Mg Tab 80 Mg PO HS Breo Ellipta Inh (Fluticasone/Vilanterol) 200-25 Mcg/Act Inh 1 Puff INH DAILY Use daily at the same time. Duoneb (Ipratropium-Albuterol Neb) 0.5-2.5 Mg/3 Ml Neb 1 Nebule INH Q4HR NEB Spiriva Handihaler (Tiotropium Inh) 18 Mcg Cap 18 Mcg INH DAILY 1 capsule = 18 mcg Ventolin Hfa 18 GM Inh (Albuterol Sulfate) 90 Mcg/Act Aer 1 Puff INH Q4H PRN Baclofen 20 Mg Tab 20 Mg PO TID Amlodipine (Amlodipine Besylate) 10 Mg Tab 10 Mg PO DAILY Losartan (Losartan Potassium) 25 Mg Tab 25 Mg PO DAILY Furosemide 20 Mg Tab 20 Mg PO BID Montelukast (Montelukast Sodium) 10 Mg Tab 10 Mg PO HS Omeprazole 40 Mg Cap 40 Mg PO DAILY Gabapentin 300 Mg Cap 300 Mg PO TID Review of Systems Except as stated in HPI: all other systems reviewed are Neg Physical Exam Narrative GENERAL: This is a well-developed well-nourished male who is tachycardic, actively vomiting during examination. SKIN: Warm and dry. HEAD: Atraumatic. Normocephalic. EYES: Pupils equal and round. No scleral icterus. No injection or drainage. ENT: No nasal bleeding or discharge. Mucous membranes pink and moist. NECK: Trachea midline. No JVD. CARDIOVASCULAR: Regular rate and rhythm. No murmur appreciated. RESPIRATORY: No accessory muscle use. Wheezing is noted bilaterally. GASTROINTESTINAL: Abdomen soft, non-tender, nondistended. Hepatic and splenic margins not palpable. MUSCULOSKELETAL: No obvious deformities. No edema. NEUROLOGICAL: Awake and alert. No obvious cranial nerve deficits. Motor grossly within normal limits. Normal speech. PSYCHIATRIC: Appropriate mood and affect; insight and judgment normal. Data Data Last Documented VS Vital Signs Date Time Temp Pulse Resp B/P (MAP) Pulse Ox O2 Delivery O2 Flow Rate FiO2 08/24/17 12:59 99.5 123 22 126/69 (88) 95 Room Air Orders Orders Ondansetron Inj (Zofran Inj) (08/24/17 13:00) Complete Blood Count With Diff (08/24/17 12:57) Comprehensive Metabolic Panel (08/24/17 12:57) Lactic Acid (08/24/17 12:57) Urinalysis - C+S If Indicated (08/24/17 12:57) Iv Access Insert/Monitor (08/24/17 12:57) Sodium Chlor 0.9% 1000 Ml Inj (Ns 1000 M (08/24/17 12:57) Electrocardiogram (08/24/17 12:57) Magnesium (Mg) (08/24/17 12:57) Beta Hydroxybutyrate (Acetone) (08/24/17 12:57) Chest, Single Ap (08/24/17 ) Blood Glucose (08/24/17 13:03) Sodium Chlor 0.9% 1000 Ml Inj (Ns 1000 M (08/24/17 14:20) Magnesium Sulfate 1 Gm Premix (Magnesium (08/24/17 14:30) Labs Laboratory Tests Test 08/24/17 12:10 08/24/17 13:10 Lactic Acid Level 2.4 mmol/L White Blood Count 5.0 TH/MM3 Red Blood Count 4.28 MIL/MM3 Hemoglobin 12.9 GM/DL Hematocrit 37.8 % Mean Corpuscular Volume 88.2 FL Mean Corpuscular Hemoglobin 30.1 PG Mean Corpuscular Hemoglobin Concent 34.2 % Red Cell Distribution Width 13.5 % Platelet Count 276 TH/MM3 Mean Platelet Volume 7.3 FL Neutrophils (%) (Auto) 90.5 % Lymphocytes (%) (Auto) 3.3 % Monocytes (%) (Auto) 2.6 % Eosinophils (%) (Auto) 3.1 % Basophils (%) (Auto) 0.5 % Neutrophils # (Auto) 4.5 TH/MM3 Lymphocytes # (Auto) 0.2 TH/MM3 Monocytes # (Auto) 0.1 TH/MM3 Eosinophils # (Auto) 0.2 TH/MM3 Basophils # (Auto) 0.0 TH/MM3 CBC Comment DIFF FINAL Differential Comment Blood Urea Nitrogen 21 MG/DL Creatinine 1.15 MG/DL Random Glucose 166 MG/DL Total Protein 7.5 GM/DL Albumin 3.6 GM/DL Calcium Level 8.4 MG/DL Magnesium Level 1.1 MG/DL Alkaline Phosphatase 84 U/L Aspartate Amino Transf (AST/SGOT) 18 U/L Alanine Aminotransferase (ALT/SGPT) 28 U/L Total Bilirubin 0.6 MG/DL Sodium Level 143 MEQ/L Potassium Level 3.7 MEQ/L Chloride Level 108 MEQ/L Carbon Dioxide Level 25.5 MEQ/L Anion Gap 10 MEQ/L Estimat Glomerular Filtration Rate 63 ML/MIN B-Hydroxybutyrate 0.18 MMOL/L MDM Medical Decision Making Medical Screen Exam Complete: Yes Emergency Medical Condition: Yes Medical Record Reviewed: Yes Differential Diagnosis Gastroenteritis, dehydration, electrolyte abnormality, DKA, obstruction, food poisoning Narrative Course 72-year-old male presents with a one-day history of multiple episodes of nausea , vomiting, diarrhea. He has had a productive cough for one week. He denies abdominal pain. On examination he is vomiting. He is tachycardic. The patient will be given IV fluids, Zofran. He replaced on ECG monitoring and pulse oximetry. Basic lab work, EKG will be obtained. Upon reexamination the patient is feeling improved. His lab work is been reviewed. Notable for a lactic acid 2.4, magnesium of 1.1. The patient's heart rate is improved to 101. He is tolerating ice chips. He was able to stand with no lightheadedness or dizziness. I suspect his symptoms are secondary to a viral gastroenteritis. He was able to tolerate a cup of water with no additional nausea or vomiting. The patient was offered admission for observation but he is declining, he feels better and would prefer to go home. He understands that he return at any time for new or worsening symptoms. He will be discharged with a short course of Zofran. Procedures EKG Prior to Arrival: Yes Diagnosis Primary Impression: Gastroenteritis Additional Instructions: Zofran for nausea. Slowly advance diet as tolerated. Stay well-hydrated and well-nourished. Follow-up closely with primary care physician and return for any new or worsening symptoms. Med/Other Pt SpecificInfo: Prescription(s) given Scripts Ondansetron (Zofran) 4 Mg Tab 4 MG PO Q6HR Y for NAUSEA OR VOMITING, #20 TAB 0 Refills Prov: Neal Vital MD 08/24/17 Disposition: 01 DISCHARGE HOME Condition: Stable Ronny Hickman Aug 24, 2017 13:01
[2017-08-24 13:44] LABS: AUTOMATED NEUTROPHIL # 4.5 TH/MM3 (1.8-7.7); BASOPHIL % 0.5 % (0.0-2.0); EOSINOPHIL # 0.2 TH/MM3 (0-0.4); EOSINOPHIL % 3.1 % (0.0-4.0); HEMATOCRIT 37.8 % (39.0-51.0); HEMO FLAGS DIFF FINAL; LYMPH % 3.3 % (9.0-44.0); LYMPHOCYTE # 0.2 TH/MM3 (1.0-4.8); MEAN CELL VOLUME 88.2 FL (80.0-100.0); MEAN CORPUSCULAR HEMOGLOBIN 30.1 PG (27.0-34.0); MEAN CORPUSCULAR HGB CONC 34.2 % (32.0-36.0); MONO % 2.6 % (0.0-8.0); NEUT % 90.5 % (16.0-70.0); PLATELET COUNT 276 TH/MM3 (150-450); RED BLOOD COUNT 4.28 MIL/MM3 (4.50-5.90); RED CELL DISTRIBUTION WIDTH 13.5 % (11.6-17.2)
--- NOTE | 2017-08-24 13:56 | RADRPT ---
EXAM DATE/TIME: 08/24/2017 13:14 [facility] COMPARISON: CHEST SINGLE AP, June 09, 2017, 19:37. INDICATIONS : Cough MEDICAL HISTORY : Chronic obstructive pulmonary disease. SURGICAL HISTORY : None. ENCOUNTER: Initial ACUITY: 1 day PAIN SCORE: 0/10 LOCATION: Bilateral chest FINDINGS: A single view of the chest demonstrates the lungs to be symmetrically aerated without evidence of mas s, infiltrate or effusion. The cardiomediastinal contours are unremarkable. Osseous structures are intact. CONCLUSION: Normal examination. Numerous healed left-sided rib fractures. Previous cervical fusion Mor Nascimento MD on August 24, 2017 at 13:54 Board Certified Radiologist. This report was verified electronically.
[2017-08-24 14:12] LABS: ALT (GPT) 28 U/L (12-78); ANION GAP 10 MEQ/L (5-15); AST (GOT) 18 U/L (15-37); BICARBONATE 25.5 MEQ/L (21.0-32.0); BLOOD UREA NITROGEN 21 MG/DL (7-18); CHLORIDE 108 MEQ/L (98-107); GLOMERULAR FILTRATION RATE 63 ML/MIN (>89); MAGNESIUM 1.1 MG/DL (1.5-2.5); POTASSIUM 3.7 MEQ/L (3.5-5.1); SODIUM (NA) 143 MEQ/L (136-145)
[2017-08-24 14:14] LABS: ALKALINE PHOSPHATASE 84 U/L (45-117); BETA-HYDROXYBUTYRATE 0.18 MMOL/L (0.00-0.39); TOTAL BILIRUBIN ADULT 0.6 MG/DL (0.2-1.0)
[2017-08-24] MEDS ORDERED: MAGNESIUM SULFATE 1 GM PREMIX 100 ML IV ONE (14:30)
--- NOTE | 2017-08-24 14:48 | PD ---
Data Data Last Documented VS Vital Signs Date Time Temp Pulse Resp B/P (MAP) Pulse Ox O2 Delivery O2 Flow Rate FiO2 08/24/17 16:00 76 18 142/78 (99) 97 08/24/17 12:59 99.5 Room Air Orders Orders Ondansetron Inj (Zofran Inj) (08/24/17 13:00) Complete Blood Count With Diff (08/24/17 12:57) Comprehensive Metabolic Panel (08/24/17 12:57) Lactic Acid (08/24/17 12:57) Urinalysis - C+S If Indicated (08/24/17 12:57) Iv Access Insert/Monitor (08/24/17 12:57) Sodium Chlor 0.9% 1000 Ml Inj (Ns 1000 M (08/24/17 12:57) Electrocardiogram (08/24/17 12:57) Magnesium (Mg) (08/24/17 12:57) Beta Hydroxybutyrate (Acetone) (08/24/17 12:57) Chest, Single Ap (08/24/17 ) Blood Glucose (08/24/17 13:03) Sodium Chlor 0.9% 1000 Ml Inj (Ns 1000 M (08/24/17 14:20) Magnesium Sulfate 1 Gm Premix (Magnesium (08/24/17 14:30) Labs Laboratory Tests Test 08/24/17 12:10 08/24/17 13:10 Lactic Acid Level 2.4 mmol/L White Blood Count 5.0 TH/MM3 Red Blood Count 4.28 MIL/MM3 Hemoglobin 12.9 GM/DL Hematocrit 37.8 % Mean Corpuscular Volume 88.2 FL Mean Corpuscular Hemoglobin 30.1 PG Mean Corpuscular Hemoglobin Concent 34.2 % Red Cell Distribution Width 13.5 % Platelet Count 276 TH/MM3 Mean Platelet Volume 7.3 FL Neutrophils (%) (Auto) 90.5 % Lymphocytes (%) (Auto) 3.3 % Monocytes (%) (Auto) 2.6 % Eosinophils (%) (Auto) 3.1 % Basophils (%) (Auto) 0.5 % Neutrophils # (Auto) 4.5 TH/MM3 Lymphocytes # (Auto) 0.2 TH/MM3 Monocytes # (Auto) 0.1 TH/MM3 Eosinophils # (Auto) 0.2 TH/MM3 Basophils # (Auto) 0.0 TH/MM3 CBC Comment DIFF FINAL Differential Comment Blood Urea Nitrogen 21 MG/DL Creatinine 1.15 MG/DL Random Glucose 166 MG/DL Total Protein 7.5 GM/DL Albumin 3.6 GM/DL Calcium Level 8.4 MG/DL Magnesium Level 1.1 MG/DL Alkaline Phosphatase 84 U/L Aspartate Amino Transf (AST/SGOT) 18 U/L Alanine Aminotransferase (ALT/SGPT) 28 U/L Total Bilirubin 0.6 MG/DL Sodium Level 143 MEQ/L Potassium Level 3.7 MEQ/L Chloride Level 108 MEQ/L Carbon Dioxide Level 25.5 MEQ/L Anion Gap 10 MEQ/L Estimat Glomerular Filtration Rate 63 ML/MIN B-Hydroxybutyrate 0.18 MMOL/L MDM Medical Record Reviewed: Yes Supervised Visit with MASON: Yes Narrative Course I, Dr. Vital, have reviewed the advance practice practitioner's documentation and am in agreement, met with the patient face to face, made the diagnosis, and the medical decision making was done by me. *My assessment and Findings: pt has generalized weakness watery brown diarrhea work up reassuring CBC & BMP Diagram 08/24/17 13:10 Total Protein 7.5, Albumin 3.6, Calcium Level 8.4 L, Magnesium Level 1.1 L, Alkaline Phosphatase 84, Aspartate Amino Transf (AST/SGOT) 18, Alanine Aminotransferase (ALT/SGPT) 28, Total Bilirubin 0.6 LA 2.4 Mg 1.1 Mg replenished IVF Zofran Scripts Ondansetron (Zofran) 4 Mg Tab 4 MG PO Q6HR Y for NAUSEA OR VOMITING, #20 TAB 0 Refills Prov: Neal Vital MD 08/24/17 Neal Vital MD Aug 24, 2017 14:48
[2017-08-24] MEDS ORDERED: ZOFR4TAB PO (15:31)
[2017-08-24 16:00] VITALS: BP 142/78
--- NOTE | 2017-08-25 19:41 | EKG ---
Date Performed: 08/24/2017 Time Performed: 13:01:38 PTAGE: 72 years EKG: SINUS TACHYCARDIA RIGHT BUNDLE BRANCH BLOCK INFERIOR MYOCARDIAL INFARCTION ABNORMAL ECG NO PREVIOUS TRACING DOCTOR: Randy Spear Interpretating Date/Time 08/25/2017 19:36:44
== END 2017-08-24 18:51 | disposition home or self-care (01) ==
LOC: NEPC 12:40
DX: K52.9 Noninfective gastroenteritis and colitis, unspecified (principal); I48.91 Unspecified atrial fibrillation
CPT/HCPCS: 71010; 80053; 82010; 83605; 83735; 85025; 93005; 96361; 96374; 96375; 99285; J2405; J3475; J7030

== ENCOUNTER 2018-01-23 15:01 | Emergency (ER) | payer OTHER, MEDICAID ==
[~2018-01-23] VITALS: Ht 182.9 cm; Wt 98.0 kg
[~2018-01-23 15:01] MED LIST changes: -ATOR1TAB18 PO; +ATOR80TA45 PO; +TRAZ100T10 PO; -TRAZ100T6 PO; +ZOFR4TAB PO
[2018-01-23 15:08] VITALS: BP 147/71; PULSE 83; RESP 18; TEMP 98.1; O2SAT 97
--- NOTE | 2018-01-23 17:39 | PD ---
HPI Chief Complaint: Fall Time Seen by Provider: 17:31 Travel History International Travel<30 days: No Contact w/Intl Traveler<30days: No Traveled to known affect area: No History of Present Illness HPI 72-year-old male presents emergency department status post trip and fall at the local bus stop. Patient skin both his knees but is complaining of right forearm pain. Patient denies hand or specific wrist pain. He states the pain is localized to the middle forearm. Patient states no pain in the elbow or shoulder. Patient states he did not lose consciousness or hit his head. There was no syncope. He states his knees are not bothering compared to the right arm. He has no other symptoms. He is allergic to erythromycin and gentamicin. PFSH Past Medical History Anemia: Yes Arthritis: Yes Asthma: Yes Autoimmune Disease: No Blood Disorders: No Anxiety: No Depression: No Heart Rhythm Problems: Yes Cancer: No Cardiac Catheterization: Yes (1991 NO STENTS PLACED) Cardiovascular Problems: Yes (bundle branch block) High Cholesterol: Yes Chemotherapy: No Chest Pain: Yes (chest tightness with asthma ) Congestive Heart Failure: No (NO HX OF BUT BNP ELEVATED) COPD: Yes Cerebrovascular Accident: Yes Diabetes: Yes Diminished Hearing: Yes (RIGHT) Diverticulitis: Yes Endocrine: Yes Gastrointestinal Disorders: No (DIVERTICULOSIS) GERD: Yes Genitourinary: No Headaches: Yes Hepatitis: No Hiatal Hernia: No Heparin Induced Thrombocytopen: No Hypertension: Yes Immune Disorder: No Implanted Vascular Access Dvce: Yes Kidney Stones: Yes Musculoskeletal: Yes (ARTHRITIS) Neurologic: No Psychiatric: No Reproductive: No Respiratory: Yes Immunizations Current: Yes Migraines: No Myocardial Infarction: Yes (NSTEMI) Pneumonia: Yes Radiation Therapy: No Renal Failure: No Seizures: Yes Sickle Cell Disease: No Sleep Apnea: No Thyroid Disease: No Triglycerides - High: Yes Ulcer: No Past Surgical History Abdominal Surgery: No AICD: No Arteriovenous Shunt: No Body Medical Devices: CERVICAL HARDWARE Cardiac Surgery: Yes Coronary Artery Bypass Graft: No Ear Surgery: No Endocrine Surgery: No Eye Surgery: No Genitourinary Surgery: Yes Gynecologic Surgery: No Insulin Pump: No Joint Replacement: No Neurologic Surgery: Yes (ANT. CERVICAL FUSION) Oral Surgery: Yes (DENTAL EXTRACTION) Pacemaker: No Thoracic Surgery: No Tonsillectomy: Yes Other Surgery: Yes (SPINAL FUSION C2,3,4,5,6) Social History Alcohol Use: No Tobacco Use: No Substance Use: No Allergies-Medications (Allergen,Severity, Reaction): Coded Allergies: erythromycin base (Unverified Allergy, Severe, RASH, HIVES, SOB, 08/24/17) gentamicin (Unverified Allergy, Severe, RASH/SOB, 08/24/17) PT STATES HE IS NOT ALLERGIC Reported Meds & Prescriptions Reported Meds & Active Scripts Active Zofran (Ondansetron HCl) 4 Mg Tab 4 Mg PO Q6HR PRN Tamsulosin (Tamsulosin HCl) 0.4 Mg Cap 0.4 Mg PO HS take 2 tabs po QHS Reported Novolin N Inj (Insulin Human NPH) 1,000 Unit/10 Ml Vial 25 SQ BID Sliding Scale As Directed. Trazodone (Trazodone HCl) 100 Mg Tablet 100 Mg PO HS Metformin (Metformin HCl) 1,000 Mg Tab 1,000 Mg PO BIDPC With meals Potassium Chloride ER (Potassium Chloride) 10 Meq Tab 10 Meq PO DAILY Amlodipine (Amlodipine Besylate) 10 Mg Tab 10 Mg PO DAILY Atorvastatin (Atorvastatin Calcium) 80 Mg Tab 80 Mg PO HS Breo Ellipta Inh (Fluticasone/Vilanterol) 200-25 Mcg/Act Inh 1 Puff INH DAILY Use daily at the same time. Duoneb (Ipratropium-Albuterol Neb) 0.5-2.5 Mg/3 Ml Neb 1 Nebule INH Q4HR NEB Spiriva Handihaler (Tiotropium Inh) 18 Mcg Cap 18 Mcg INH DAILY 1 capsule = 18 mcg Ventolin Hfa 18 GM Inh (Albuterol Sulfate) 90 Mcg/Act Aer 1 Puff INH Q4H PRN Baclofen 20 Mg Tab 20 Mg PO TID Amlodipine (Amlodipine Besylate) 10 Mg Tab 10 Mg PO DAILY Losartan (Losartan Potassium) 25 Mg Tab 25 Mg PO DAILY Furosemide 20 Mg Tab 20 Mg PO BID Montelukast (Montelukast Sodium) 10 Mg Tab 10 Mg PO HS Omeprazole 40 Mg Cap 40 Mg PO DAILY Gabapentin 300 Mg Cap 300 Mg PO TID Review of Systems Except as stated in HPI: all other systems reviewed are Neg General / Constitutional: No: Fever, Chills Eyes: No: Visual changes HENT: No: Headaches Cardiovascular: No: Chest Pain or Discomfort Respiratory: No: Shortness of Breath Gastrointestinal: No: Abdominal Pain Genitourinary: No: Dysuria Musculoskeletal: Positive: Arthralgias, Limited ROM, Pain (See history of present illness) Skin: No Rash Neurologic: No: Weakness Psychiatric: No: Depression Endocrine: No: Polydipsia Hematologic/Lymphatic: No: Easy Bruising Physical Exam Narrative GENERAL: Patient appears in mild to moderate distress. SKIN: Warm and dry. Normal color. Normal turgor. Patient is very superficial abrasions to both anterior knees, as well as the right distal ulna. HEAD: Atraumatic. Normocephalic. Nontender. EYES: Pupils equal and round. No scleral icterus. No injection or drainage. ENT: No nasal bleeding or discharge. Mucous membranes pink and moist. No dental injury. Pharynx clear. Airway patent. NECK: Trachea midline. No bony tenderness or step-off. Range of motion is full and supple without tenderness. CARDIOVASCULAR: Regular rate and rhythm. RESPIRATORY: No accessory muscle use. Clear to auscultation. Breath sounds equal bilaterally. GASTROINTESTINAL: Abdomen soft, non-tender, nondistended. Hepatic and splenic margins not palpable. MUSCULOSKELETAL: Extremities without clubbing, cyanosis, or edema. No obvious deformities. Patient has limited teletype technician strength secondary to pain in the right forearm. Neurovascular exam is normal in the right hand. Right hand is nontender with palpation. Right wrist is nontender with palpation. Patient complains of pain with palpation of the lateral mid forearm. Right elbow is unremarkable and nontender with palpation. Pain is exacerbated with motion of the wrist. Right shoulder is unremarkable. Lower extremities have no bony tenderness. NEUROLOGICAL: Awake and alert. No obvious cranial nerve deficits. Motor grossly within normal limits. Five out of 5 muscle strength in the arms and legs. Normal speech. PSYCHIATRIC: Appropriate mood and affect; insight and judgment normal. Data Data Last Documented VS Vital Signs Date Time Temp Pulse Resp B/P (MAP) Pulse Ox O2 Delivery O2 Flow Rate FiO2 01/23/18 15:08 98.1 83 18 147/71 (96) 97 Orders Orders Forearm (2vws) (01/23/18 17:34) Ice/Cold Pack (01/23/18 17:34) Morphine Inj (Morphine Inj) (01/23/18 17:45) MDM Medical Decision Making Medical Screen Exam Complete: Yes Emergency Medical Condition: Yes Differential Diagnosis Trip and fall. Bilateral knee contusion with abrasion. Right arm contusion. Possible fracture. Narrative Course Patient is medically stable at time of exam. Patient is given 2 mg morphine IM. Ice is applied to the right forearm. X-rays of the right wrist and forearm are ordered. Condition: Stable Dav Ma Jan 23, 2018 17:39
[2018-01-23] MEDS ORDERED: METO25TA3 PO (17:41)
[2018-01-23] MEDS ORDERED: ASPI-516 CHEW (17:41)
[2018-01-23] MEDS ORDERED: MORPHINE SULFATE 2 MG/ML INJ IM ONE (17:45)
--- NOTE | 2018-01-23 18:22 | RADRPT ---
EXAM DATE/TIME: 01/23/2018 17:55 [facility] COMPARISON: No previous studies available for comparison. INDICATIONS : Right forearm pain after fall today. MEDICAL HISTORY : Chronic obstructive pulmonary disease. SURGICAL HISTORY : No pertinent surgical history. ENCOUNTER: Initial ACUITY: 1 day PAIN SCORE: 7/10 LOCATION: Right forearm. FINDINGS: There is an acute fracture involving the radial head/neck. Degenerative changes are noted involving t he radiocarpal and ulnar carpal joints. CONCLUSION: 1. Acute fracture involving the right radial head/neck. 2. Degenerative changes involving the radiocarpal and ulnar carpal joints. 1. Hector Hines MD on January 23, 2018 at 18:20 Board Certified Radiologist. This report was verified electronically.
[2018-01-23] MEDS ORDERED: NORC5TAB PO (19:35)
--- NOTE | 2018-01-23 19:36 | PD ---
Physical Exam Narrative I, Dr. Hale, have reviewed the advance practice practitioner's documentation and am in agreement, met with the patient face to face, made the diagnosis, and the medical decision making was done by me. *My assessment and Findings: Patient is a 72 year old male who comes in after a trip and fall. He complains of pain with movement of his arm, but he is able to move his arm. Exam shows no sarah tenderness to his right arm or either knee. Pulses are intact. Data Data Last Documented VS Vital Signs Date Time Temp Pulse Resp B/P (MAP) Pulse Ox O2 Delivery O2 Flow Rate FiO2 01/23/18 15:08 98.1 83 18 147/71 (96) 97 Orders Orders Forearm (2vws) (01/23/18 17:34) Ice/Cold Pack (01/23/18 17:34) Morphine Inj (Morphine Inj) (01/23/18 17:45) Support Splint (01/23/18 19:30) MDM Supervised Visit with MASON: Yes Narrative Course XR of the right elbow shows a nondisplaced radial head fracture. Patient placed in a sling and advised to follow up with orthopedics. Advised to return as needed for any worsening symptoms. Diagnosis Primary Impression: Radial head fracture Qualified Codes: S52.124A - Nondisplaced fracture of head of right radius, initial encounter for closed fracture Referrals: Dewayne Mederos Jr., MD call for appointment Patient Instructions: Elbow Fracture (ED), General Instructions Additional Instruction: Wear the sling until you see the orthopedic surgeon. Make sure you remove the sling a few times a day to move your arm around. Take pain medicine as needed. Return to the ED as needed for any worsening symptoms. Scripts Hydrocodone-Acetaminophen ([place]) 5 Mg-325 Mg Tab 1 TAB PO Q6H Y for PAIN, #12 TAB 0 Refills Prov: Meena Hale MD 01/23/18 Disposition: 01 DISCHARGE HOME Condition: Stable Meena Hale MD Jan 23, 2018 19:35
== END 2018-01-23 20:11 | disposition home or self-care (01) ==
LOC: NEPD 15:01
DX: S52.124A Nondisplaced fracture of head of right radius, initial encounter for closed fracture (principal); M19.90 Unspecified osteoarthritis, unspecified site; I45.4 Nonspecific intraventricular block; E78.00 Pure hypercholesterolemia, unspecified; J44.9 Chronic obstructive pulmonary disease, unspecified; E11.9 Type 2 diabetes mellitus without complications; I10 Essential (primary) hypertension; I25.2 Old myocardial infarction; W01.0XXA Fall on same level from slipping, tripping and stumbling without subsequent striking against object, initial encounter; Z86.73 Personal history of transient ischemic attack (TIA), and cerebral infarction without residual deficits; Z88.1 Allergy status to other antibiotic agents; Z88.8 Allergy status to other drugs, medicaments and biological substances
CPT/HCPCS: 73090; 96372; 99283; J2270

== ENCOUNTER 2018-01-26 13:18 | Emergency (ER) | payer OTHER, MEDICAID ==
[~2018-01-26 13:18] MED LIST changes: +ASPI-516 CHEW; +METO25TA3 PO; +NORC5TAB PO; -SPIRCAP INH; -ZOFR4TAB PO
[2018-01-26 14:14] VITALS: BP 178/92; PULSE 95; RESP 16; TEMP 98.5; O2SAT 96
[2018-01-26] MEDS ORDERED: TRAM50 PO ×2 (15:50→16:36)
--- NOTE | 2018-01-26 15:50 | PD ---
HPI Chief Complaint: Injury Time Seen by Provider: 15:32 Travel History International Travel<30 days: No Contact w/Intl Traveler<30days: No Traveled to known affect area: No History of Present Illness HPI 72-year-old male here requesting a referral to orthopedic surgeon and change of his pain medication. Patient was diagnosed with a right humeral fracture on 01/23 after a mechanical trip and fall. He was discharged home with a prescription for Lortab and advised to follow-up with Dr. Arias. He reports that the Lortab makes him sick to stomach therefore he cannot take the medication. He also reports that he cannot find his paperwork from that visit therefore cannot follow-up with Dr. Arias until he has a referral. He denies any new injury. He denies worsening of arm pain. He denies paresthesia or weakness of the extremity. Symptom severity is moderate. No aggravating or alleviating factors. He reports compliance with his sling. PFSH Past Medical History Anemia: Yes Arthritis: Yes Asthma: Yes Autoimmune Disease: No Blood Disorders: No Anxiety: No Depression: No Heart Rhythm Problems: Yes Cancer: No Cardiac Catheterization: Yes (1991 NO STENTS PLACED) Cardiovascular Problems: Yes (bundle branch block) High Cholesterol: Yes Chemotherapy: No Chest Pain: Yes (chest tightness with asthma ) COPD: Yes Cerebrovascular Accident: Yes Diabetes: Yes Diminished Hearing: Yes (RIGHT) Diverticulitis: Yes Endocrine: Yes GERD: Yes Genitourinary: No Headaches: Yes Hepatitis: No Hiatal Hernia: No Heparin Induced Thrombocytopen: No Hypertension: Yes Immune Disorder: No Implanted Vascular Access Dvce: Yes Kidney Stones: Yes Musculoskeletal: Yes (ARTHRITIS) Neurologic: No Psychiatric: No Reproductive: No Respiratory: Yes Immunizations Current: Yes Migraines: No Myocardial Infarction: Yes (NSTEMI) Pneumonia: Yes Radiation Therapy: No Renal Failure: No Seizures: Yes Sickle Cell Disease: No Sleep Apnea: No Thyroid Disease: No Triglycerides - High: Yes Ulcer: No Past Surgical History Abdominal Surgery: No AICD: No Arteriovenous Shunt: No Body Medical Devices: CERVICAL HARDWARE Cardiac Surgery: Yes Coronary Artery Bypass Graft: No Ear Surgery: No Endocrine Surgery: No Eye Surgery: No Genitourinary Surgery: Yes Gynecologic Surgery: No Insulin Pump: No Joint Replacement: No Neurologic Surgery: Yes (ANT. CERVICAL FUSION) Oral Surgery: Yes (DENTAL EXTRACTION) Pacemaker: No Thoracic Surgery: No Tonsillectomy: Yes Other Surgery: Yes (SPINAL FUSION C2,3,4,5,6) Social History Alcohol Use: No Tobacco Use: No Substance Use: No Allergies-Medications (Allergen,Severity, Reaction): Coded Allergies: erythromycin base (Verified Allergy, Severe, RASH, HIVES, SOB, 01/26/18) gentamicin (Verified Allergy, Severe, RASH/SOB, 01/26/18) PT STATES HE IS NOT ALLERGIC Reported Meds & Prescriptions Reported Meds & Active Scripts Active Ultram (Tramadol HCl) 50 Mg Tab 50 Mg PO Q6H PRN [place] (Hydrocodone-Acetaminophen) 5 Mg-325 Mg Tab 1 Tab PO Q6H PRN Tamsulosin (Tamsulosin HCl) 0.4 Mg Cap 0.4 Mg PO HS take 2 tabs po QHS Reported Aspirin 81 Mg Chew 81 Mg CHEW DAILY Metoprolol Tartrate 25 Mg Tab 12.5 Mg PO BID Novolin N Inj (Insulin Human NPH) 1,000 Unit/10 Ml Vial 25 SQ BID Sliding Scale As Directed. Trazodone (Trazodone HCl) 100 Mg Tablet 100 Mg PO HS Metformin (Metformin HCl) 1,000 Mg Tab 1,000 Mg PO BIDPC With meals Potassium Chloride ER (Potassium Chloride) 10 Meq Tab 10 Meq PO DAILY Atorvastatin (Atorvastatin Calcium) 80 Mg Tab 80 Mg PO HS Breo Ellipta Inh (Fluticasone/Vilanterol) 200-25 Mcg/Act Inh 1 Puff INH DAILY Use daily at the same time. Duoneb (Ipratropium-Albuterol Neb) 0.5-2.5 Mg/3 Ml Neb 1 Nebule INH Q4HR NEB Ventolin Hfa 18 GM Inh (Albuterol Sulfate) 90 Mcg/Act Aer 1 Puff INH Q4H PRN Baclofen 20 Mg Tab 20 Mg PO TID Amlodipine (Amlodipine Besylate) 10 Mg Tab 10 Mg PO DAILY Losartan (Losartan Potassium) 25 Mg Tab 25 Mg PO DAILY Furosemide 20 Mg Tab 20 Mg PO BID Montelukast (Montelukast Sodium) 10 Mg Tab 10 Mg PO HS Omeprazole 40 Mg Cap 40 Mg PO DAILY Gabapentin 300 Mg Cap 300 Mg PO TID Review of Systems Except as stated in HPI: all other systems reviewed are Neg General / Constitutional: No: Fever Eyes: No: Visual changes HENT: No: Headaches Cardiovascular: No: Chest Pain or Discomfort Respiratory: No: Shortness of Breath Gastrointestinal: No: Abdominal Pain Genitourinary: No: Dysuria Musculoskeletal: Positive: Pain (right upper extremity pain) Skin: No Rash Physical Exam Narrative GENERAL: Alert and well-appearing 72-year-old male SKIN: Warm and dry. HEAD: Normocephalic. EYES: No injection or drainage. NECK: Supple CARDIOVASCULAR: Regular rate and rhythm without murmurs, gallops, or rubs. RESPIRATORY: Breath sounds equal bilaterally. No accessory muscle use. GASTROINTESTINAL: Abdomen soft, non-tender, nondistended. MUSCULOSKELETAL: No cyanosis, or edema. Right upper extremity: +TTP proximal humerus. 2+ radial pulse. Equal hand grasp. Normal color/sensation of both hands. Brisk cap refill. BACK: No CVA tenderness. Data Data Last Documented VS Vital Signs Date Time Temp Pulse Resp B/P (MAP) Pulse Ox O2 Delivery O2 Flow Rate FiO2 01/26/18 14:14 98.5 95 16 178/92 (120) 96 Orders Orders Ed Discharge Order (01/26/18 15:50) MDM Medical Decision Making Medical Screen Exam Complete: Yes Emergency Medical Condition: Yes Differential Diagnosis Pain from humeral fracture, adverse reaction to medication, medication noncompliance Narrative Course 72-year-old male here requesting a change to his pain medication and a new referral to orthopedic doctor. Patient has a known right humeral fracture. He reports compliance with his sling. The extremity is neurovascularly intact. He 'll be referred to orthopedic surgeon for follow-up and his pain medication will be changed to Ultram. Diagnosis Primary Impression: Adverse drug reaction Qualified Codes: T88.7XXA - Unspecified adverse effect of drug or medicament, initial encounter Additional Impression: Humerus fracture Qualified Codes: S42.294A - Other nondisplaced fracture of upper end of right humerus, initial encounter for closed fracture Referrals: Carl Goldsmith MD Orthopaedic Surgeon Additional Instructions: Take the Ultram as directed and as needed for pain. Call to schedule a follow-up appointment with the orthopedic doctor Continue to wear the sling as directed. Scripts Tramadol (Ultram) 50 Mg Tab 50 MG PO Q6H Y for PAIN, #12 TAB 0 Refills Prov: Kendra Hoffmann 01/26/18 Disposition: 01 DISCHARGE HOME Condition: Stable Kendra Hoffmann Jan 26, 2018 15:50
== END 2018-01-26 16:45 | disposition home or self-care (01) ==
LOC: NEPK 13:18
DX: T88.7XXA Unspecified adverse effect of drug or medicament, initial encounter (principal); S42.294A Other nondisplaced fracture of upper end of right humerus, initial encounter for closed fracture; W01.0XXA Fall on same level from slipping, tripping and stumbling without subsequent striking against object, initial encounter; D64.9 Anemia, unspecified; J45.909 Unspecified asthma, uncomplicated; J44.9 Chronic obstructive pulmonary disease, unspecified; E11.9 Type 2 diabetes mellitus without complications; I10 Essential (primary) hypertension
CPT/HCPCS: 99283

== ENCOUNTER 2018-04-23 17:58 | Observation (INO) | payer OTHER, MEDICAID ==
[2018-04-23] VITALS (7 sets, daily range): BP systolic 156–189; BP diastolic 68–88; PULSE 61–79; RESP 16–20; TEMP 98.1–99.2; O2SAT 93–97
[~2018-04-23] VITALS: Ht 182.9 cm; Wt 104.5 kg
[~2018-04-23 17:58] MED LIST changes: +TRAM50 PO
[2018-04-23] MEDS ORDERED: DEXTROSE 50% IN WATER 50 ML SYRINGE IV PUSH ONE (19:30)
[2018-04-23] MEDS ORDERED: methylPREDNISolone SOD SUCC 125 MG/2 ML VIAL IV PUSH ONE (19:30)
[2018-04-23 20:06] LABS: AUTOMATED NEUTROPHIL # 6.2 TH/MM3 (1.8-7.7); BASOPHIL % 0.5 % (0.0-2.0); EOSINOPHIL # 0.2 TH/MM3 (0-0.4); EOSINOPHIL % 2.3 % (0.0-4.0); HEMOGLOBIN 12.2 GM/DL (13.0-17.0); LYMPH % 22.7 % (9.0-44.0); LYMPHOCYTE # 2.1 TH/MM3 (1.0-4.8); MEAN CELL VOLUME 91.9 FL (80.0-100.0); MEAN CORPUSCULAR HGB CONC 33.7 % (32.0-36.0); MEAN PLATELET VOLUME 7.2 FL (7.0-11.0); MONO % 7.1 % (0.0-8.0); MONOCYTE # 0.7 TH/MM3 (0-0.9); NEUT % 67.4 % (16.0-70.0); PLATELET COUNT 265 TH/MM3 (150-450); RED BLOOD COUNT 3.92 MIL/MM3 (4.50-5.90); RED CELL DISTRIBUTION WIDTH 16.6 % (11.6-17.2); WHITE BLOOD COUNT 9.2 TH/MM3 (4.0-11.0)
[2018-04-23 20:14] LABS: PROTHROMBIN TIME - PATIENT 10.2 SEC (9.8-11.6)
--- NOTE | 2018-04-23 20:15 | RADRPT ---
EXAM DATE: 04/23/2018 8:09 PM EDT AGE/SEX: 72 years / Male INDICATIONS: Short of breath CLINICAL DATA: This is the patient's initial encounter. Patient reports that signs and symptoms have been present for 1 day and indicates a pain score of 0/10. MEDICAL/SURGICAL HISTORY: Chronic obstructive pulmonary disease. Diabetes mellitus type II. H ypertension. None. COMPARISON: Chest x-ray 08/24/2017. FINDINGS: A single AP view of the chest demonstrates the lungs to be symmetrically aerated without evidence of mass, infiltrate or effusion. The cardiomediastinal contours are unremarkable. An old fracture is s een involving the left clavicle with suspected lack of union. Posttraumatic ostial lysis involving th e distal right clavicle. Cervical spinal fusion plate partially seen. CONCLUSION: No acute cardiopulmonary disease. Electronically signed by: Emile George MD 04/23/2018 8:14 PM EDT
[2018-04-23] MEDS ORDERED: CETI10 PO (20:45)
[2018-04-23] MEDS ORDERED: NOVONP2 SQ (20:45)
[2018-04-23] MEDS ORDERED: HUMIBIDDM PO (20:46)
[2018-04-23 20:49] LABS: ALBUMIN 3.9 GM/DL (3.4-5.0); ALKALINE PHOSPHATASE 84 U/L (45-117); ALT (GPT) 37 U/L (12-78); AST (GOT) 22 U/L (15-37); BICARBONATE 21.9 MEQ/L (21.0-32.0); BLOOD UREA NITROGEN 14 MG/DL (7-18); CALCIUM 9.4 MG/DL (8.5-10.1); CHLORIDE 110 MEQ/L (98-107); CREATININE 0.92 MG/DL (0.60-1.30); GLOMERULAR FILTRATION RATE 81 ML/MIN (>89); MAGNESIUM 1.4 MG/DL (1.5-2.5); SODIUM (NA) 144 MEQ/L (136-145); TOTAL BILIRUBIN ADULT 0.4 MG/DL (0.2-1.0); TOTAL PROTEIN 7.4 GM/DL (6.4-8.2); TROPONIN I 0.12 NG/ML (0.02-0.05)
--- NOTE | 2018-04-23 20:51 | PD ---
HPI Chief Complaint: Chest Pain Time Seen by Provider: 19:23 Travel History International Travel<30 days: No Contact w/Intl Traveler<30days: No Traveled to known affect area: No History of Present Illness HPI 72-year-old male that presents to the ED for evaluation of chest pain and cough. Per patient he has had cough and congestion as well as shortness of breath for the past 10 days. Per patient is not getting better. Per patient he is usually able to take his inhalers and makes it better and usually when he coughs he coughs something out and makes it better but he states that he has not been improving at all. This is what prompted his evaluation. Apparently on the way here from the bus to the ER he started developing dizziness and chest pressure. Per patient the pain was 3 out of 10 and felt more like a pressure. Patient he believes is secondary to his history of COPD but he does have a history of heart disease. He states that he saw his doctor last week for this was told to continue taking his inhalers. He denies any urinary or bowel movement issues. Denies any numbness, tingling, weakness. States that the pressure is mainly in the mid chest. Per patient his main concern is more the cough that is nonproductive and does not go away and gets worse when he lays down. He states compliance with his inhalers with minimal relief. He also is diabetic and states that he has not eaten much today but did took his insulin today. He apparently was diaphoretic on the way to the room and was found to have a low blood sugar by ED nurse. Patient currently states that he has no chest pressure or mainly cough. PFSH Past Medical History Anemia: Yes Arthritis: Yes Asthma: Yes Autoimmune Disease: No Blood Disorders: No Anxiety: No Depression: No Heart Rhythm Problems: Yes Cancer: No Cardiac Catheterization: Yes (1991 NO STENTS PLACED) Cardiovascular Problems: Yes (bundle branch block) High Cholesterol: Yes Chemotherapy: No Chest Pain: Yes (chest tightness with asthma ) COPD: Yes Cerebrovascular Accident: Yes Diabetes: Yes Patient Takes Glucophage: Yes Diminished Hearing: Yes (RIGHT) Diverticulitis: Yes Endocrine: Yes GERD: Yes Genitourinary: No Headaches: Yes Hepatitis: No Hiatal Hernia: No Heparin Induced Thrombocytopen: No Hypertension: Yes Immune Disorder: No Implanted Vascular Access Dvce: Yes Kidney Stones: Yes Musculoskeletal: Yes (ARTHRITIS) Neurologic: No Psychiatric: No Reproductive: No Respiratory: Yes Immunizations Current: Yes Migraines: No Myocardial Infarction: Yes (NSTEMI) Pneumonia: Yes Radiation Therapy: No Renal Failure: No Seizures: Yes Sickle Cell Disease: No Sleep Apnea: No Thyroid Disease: No Triglycerides - High: Yes Ulcer: No Past Surgical History Abdominal Surgery: No AICD: No Arteriovenous Shunt: No Body Medical Devices: CERVICAL HARDWARE Cardiac Surgery: Yes Coronary Artery Bypass Graft: No Ear Surgery: No Endocrine Surgery: No Eye Surgery: No Genitourinary Surgery: Yes Gynecologic Surgery: No Insulin Pump: No Joint Replacement: No Neurologic Surgery: Yes (ANT. CERVICAL FUSION) Oral Surgery: Yes (DENTAL EXTRACTION) Pacemaker: No Thoracic Surgery: No Tonsillectomy: Yes Other Surgery: Yes (SPINAL FUSION C2,3,4,5,6) Social History Alcohol Use: Yes (very little) Tobacco Use: No Substance Use: No Allergies-Medications (Allergen,Severity, Reaction): Coded Allergies: erythromycin base (Verified Allergy, Severe, RASH, HIVES, SOB, 04/23/18) gentamicin (Verified Allergy, Severe, RASH/SOB, 04/23/18) PT STATES HE IS NOT ALLERGIC Reported Meds & Prescriptions Reported Meds & Active Scripts Active Tamsulosin (Tamsulosin HCl) 0.4 Mg Cap 0.4 Mg PO HS take 2 tabs po QHS Reported Mucinex DM (Dextromethorphan-Guaifenesin) 30-600 Mg Tab 1 Tab PO BID PRN Cetirizine (Cetirizine HCl) 10 Mg Tab 10 Mg PO DAILY Novolin N Inj (Insulin Human NPH) 1,000 Unit/10 Ml Vial 35 Units SQ BID Aspirin 81 Mg Chew 81 Mg CHEW DAILY Metoprolol Tartrate 25 Mg Tab 12.5 Mg PO BID Trazodone (Trazodone HCl) 100 Mg Tablet 100 Mg PO HS Metformin (Metformin HCl) 1,000 Mg Tab 1,000 Mg PO BIDPC With meals Potassium Chloride ER (Potassium Chloride) 10 Meq Tab 10 Meq PO DAILY Atorvastatin (Atorvastatin Calcium) 80 Mg Tab 80 Mg PO HS Breo Ellipta Inh (Fluticasone/Vilanterol) 200-25 Mcg/Act Inh 1 Puff INH DAILY Use daily at the same time. Duoneb (Ipratropium-Albuterol Neb) 0.5-2.5 Mg/3 Ml Neb 1 Nebule INH Q4HR NEB Ventolin Hfa 18 GM Inh (Albuterol Sulfate) 90 Mcg/Act Aer 1 Puff INH Q4H PRN Amlodipine (Amlodipine Besylate) 10 Mg Tab 10 Mg PO DAILY Losartan (Losartan Potassium) 25 Mg Tab 25 Mg PO DAILY Montelukast (Montelukast Sodium) 10 Mg Tab 10 Mg PO HS Omeprazole 40 Mg Cap 40 Mg PO DAILY Review of Systems Except as stated in HPI: all other systems reviewed are Neg Physical Exam Narrative GENERAL: SKIN: Warm and dry. HEAD: Atraumatic. Normocephalic. EYES: Pupils equal and round. No scleral icterus. No injection or drainage. ENT: No nasal bleeding or discharge. Mucous membranes pink and moist. Tongue is midline. No uvula deviation. NECK: Trachea midline. No JVD. CARDIOVASCULAR: Regular rate and rhythm. no murmurs, s3, s4. RESPIRATORY: No accessory muscle use. Mild wheezing on exam. Breath sounds equal bilaterally. GASTROINTESTINAL: Abdomen soft, non-tender, nondistended. Hepatic and splenic margins not palpable. MUSCULOSKELETAL: Extremities without clubbing, cyanosis, or edema. No obvious deformities. Full range of motion of the upper and lower extremities bilaterally. 2+ pulses bilaterally. NEUROLOGICAL: Awake and alert. No obvious cranial nerve deficits. Motor grossly within normal limits. Five out of 5 muscle strength in the arms and legs. Normal speech. PSYCHIATRIC: Appropriate mood and affect; insight and judgment normal. Data Data Last Documented VS Vital Signs Date Time Temp Pulse Resp B/P (MAP) Pulse Ox O2 Delivery O2 Flow Rate FiO2 04/23/18 20:23 61 18 188/88 (121) 97 Room Air 04/23/18 18:32 99.2 Orders Orders Dextrose 50% In [place] (Syr) Inj (D50w (Syr (04/23/18 19:30) Electrocardiogram (04/23/18 19:28) Complete Blood Count With Diff (04/23/18 19:28) Comprehensive Metabolic Panel (04/23/18 19:28) Ckmb (Isoenzyme) Profile (04/23/18 19:28) Troponin I (04/23/18 19:28) B-Type Natriuretic Peptide (04/23/18 19:28) Prothrombin Time / Inr (Pt) (04/23/18 19:28) Act Partial Throm Time (Ptt) (04/23/18 19:28) Lipase (04/23/18 19:28) Magnesium (Mg) (04/23/18 19:28) Thyroid Stimulating Hormone (04/23/18 19:28) Chest, Single Ap (04/23/18 19:28) Iv Access Insert/Monitor (04/23/18 19:28) Ecg Monitoring (04/23/18:28) Oximetry (04/23/18:) Blood Glucose (04/23/18:28) Methylprednisolone So Succ Inj (Solumedr (04/23/18 19:30) Albuterol-Ipratropium Neb (Duoneb Neb) (04/23/18 19:30) CKMB (04/23/18 19:40) CKMB% (04/23/18 19:40) Labs Laboratory Tests Test 04/23/18 19:40 White Blood Count 9.2 TH/MM3 Red Blood Count 3.92 MIL/MM3 Hemoglobin 12.2 GM/DL Hematocrit 36.0 % Mean Corpuscular Volume 91.9 FL Mean Corpuscular Hemoglobin 31.0 PG Mean Corpuscular Hemoglobin Concent 33.7 % Red Cell Distribution Width 16.6 % Platelet Count 265 TH/MM3 Mean Platelet Volume 7.2 FL Neutrophils (%) (Auto) 67.4 % Lymphocytes (%) (Auto) 22.7 % Monocytes (%) (Auto) 7.1 % Eosinophils (%) (Auto) 2.3 % Basophils (%) (Auto) 0.5 % Neutrophils # (Auto) 6.2 TH/MM3 Lymphocytes # (Auto) 2.1 TH/MM3 Monocytes # (Auto) 0.7 TH/MM3 Eosinophils # (Auto) 0.2 TH/MM3 Basophils # (Auto) 0.0 TH/MM3 CBC Comment DIFF FINAL Differential Comment Prothrombin Time 10.2 SEC Prothromb Time International Ratio 1.0 RATIO Activated Partial Thromboplast Time 25.4 SEC Blood Urea Nitrogen 14 MG/DL Creatinine 0.92 MG/DL Random Glucose 34 MG/DL Total Protein 7.4 GM/DL Albumin 3.9 GM/DL Calcium Level 9.4 MG/DL Magnesium Level 1.4 MG/DL Alkaline Phosphatase 84 U/L Aspartate Amino Transf (AST/SGOT) 22 U/L Alanine Aminotransferase (ALT/SGPT) 37 U/L Total Bilirubin 0.4 MG/DL Sodium Level 144 MEQ/L Potassium Level 3.6 MEQ/L Chloride Level 110 MEQ/L Carbon Dioxide Level 21.9 MEQ/L Anion Gap 12 MEQ/L Estimat Glomerular Filtration Rate 81 ML/MIN Total Creatine Kinase 260 U/L Creatine Kinase MB 3.9 NG/ML Troponin I 0.12 NG/ML B-Type Natriuretic Peptide 109 PG/ML Lipase 65 U/L Thyroid Stimulating Hormone 3rd Gen 2.250 uIU/ML MDM Medical Decision Making Medical Screen Exam Complete: Yes Emergency Medical Condition: Yes Medical Record Reviewed: Yes Interpretation(s) Last Impressions Chest X-Ray 04/23/181927 Signed Impressions: CONCLUSION: No acute cardiopulmonary disease. Differential Diagnosis ACS versus chest pain versus chronic chest pain versus CHF versus COPD exacerbation versus an STEMI versus positive troponin Narrative Course 72 yo male here for evaluation of chest pain and shortness of breath with cough. Patient was properly examined and was found to have signs and symptoms which appear to be more consistent with what appears to be COPD exacerbation or chronic COPD. Labs and imaging were ordered. Patient did complain of some chest pain and he was a little diaphoretic and was found to have a low blood sugar which is likely the source of it but he does have significant history of heart disease so troponin and cardiac workup was done. Patient was given aspirin and DuoNeb's as well as Solu-Medrol. Patient was found to have a positive troponin otherwise labs were essentially unremarkable. Patient does have a chronic positive troponin in the past. He does have a significant history of CHF. Patient did complain of pressure and there is some concern. My attending recommends admission for further evaluation especially just to trend down the troponin and if negative patient can go home. Patient also had a hypoglycemic episode and it did took some effort to bring his blood sugars up. Currently at 110. This needs to be monitored as well. Case discussed with Dr. Ortiz who evaluated the patient herself and agrees with admission. Case discussed with Dr. Frey who agrees to admission Diagnosis Primary Impression: Chest pain Qualified Codes: R07.9 - Chest pain, unspecified Additional Impressions: COPD (chronic obstructive pulmonary disease) Qualified Codes: J44.1 - Chronic obstructive pulmonary disease with (acute) exacerbation Hypoglycemia Admitting Information Admitting Physician Requests: Roney Morgan April 23, 2018 20:51
[2018-04-23 20:52] LABS: GLUCOSE,RANDOM 34 MG/DL (74-106)
[2018-04-23] MEDS: RESP: ALBUTEROL 2.5 MG/IPRATROPIUM 0.5 MG NEB (SCH) INH ×2 (21:03→21:25)
[2018-04-23] MEDS ORDERED: ACETAMINOPHEN 325 MG TAB PO PRN (23:00)
[2018-04-23] MEDS ORDERED: RESP: ALBUTEROL 2.5 MG/IPRATROPIUM 0.5 MG NEB (PRN) NEB (23:00)
[2018-04-23] MEDS ORDERED: MAGNESIUM HYDROXIDE SUSP 30 ML CUP PO PRN (23:00)
[2018-04-23] MEDS ORDERED: LACTULOSE SYRUP 20 GM/30 ML CUP PO PRN (23:00)
[2018-04-23] MEDS ORDERED: BISACODYL 10 MG SUPP RECTAL PRN (23:00)
[2018-04-23] MEDS ORDERED: SODIUM CHLORIDE 0.9% FLUSH 10 ML FLUSH IV FLUSH PRN (23:00)
[2018-04-23] MEDS ORDERED: NALOXONE HCL 0.4 MG/ML AMP IV PUSH PRN (23:00)
[2018-04-23] MEDS ORDERED: SENNOSIDES 8.6 MG TAB PO PRN (23:00)
[2018-04-23] MEDS ORDERED: LEVOFLOXACIN 750 MG PREMIX INJ 150 ML IV SCH (23:00)
--- NOTE | 2018-04-23 23:04 | HHI.HP ---
[facility] Non-Staff Admission Diagnosis acute chest pain, COPD exacerbation, positive troponin Diagnoses: Travel History International Travel<30 Days: No Contact w/Intl Traveler <30 Da: No Traveled to Known Affected Are: No History of Present Illness 72-year-old male with a past medical history significant for diabetes mellitus, hypertension, hyperlipidemia, CAD and COPD presents to the emergency department for the evaluation of near syncope. Patient reports he has had a nonproductive cough that became productive with purulent material earlier today for the past 10 days. He reports that the cough is persistent and worsening. Today he was getting off the bus when he suddenly became short of breath, diaphoretic and lightheaded. He denies any loss of consciousness. He reports associated chest tightness that has been going on all afternoon, now resolved. In the emergency department the patient's blood sugar was found to be 34. The patient denies any abdominal pain. No nausea/vomiting/diarrhea. No lateralizing signs/ symptoms. Review of Systems Except as stated in HPI: all other systems reviewed are Neg Past Family Social History Past Medical History diabetes mellitus, hypertension, hyperlipidemia, CAD and COPD Past Surgical History Right shoulder 2 Right knee 2 Right ankle Reported Medications Reported Meds & Active Scripts Active Tamsulosin (Tamsulosin HCl) 0.4 Mg Cap 0.4 Mg PO HS take 2 tabs po QHS Reported Mucinex DM (Dextromethorphan-Guaifenesin) 30-600 Mg Tab 1 Tab PO BID PRN Cetirizine (Cetirizine HCl) 10 Mg Tab 10 Mg PO DAILY Novolin N Inj (Insulin Human NPH) 1,000 Unit/10 Ml Vial 35 Units SQ BID Aspirin 81 Mg Chew 81 Mg CHEW DAILY Metoprolol Tartrate 25 Mg Tab 12.5 Mg PO BID Trazodone (Trazodone HCl) 100 Mg Tablet 100 Mg PO HS Metformin (Metformin HCl) 1,000 Mg Tab 1,000 Mg PO BIDPC With meals Potassium Chloride ER (Potassium Chloride) 10 Meq Tab 10 Meq PO DAILY Atorvastatin (Atorvastatin Calcium) 80 Mg Tab 80 Mg PO HS Breo Ellipta Inh (Fluticasone/Vilanterol) 200-25 Mcg/Act Inh 1 Puff INH DAILY Use daily at the same time. Duoneb (Ipratropium-Albuterol Neb) 0.5-2.5 Mg/3 Ml Neb 1 Nebule INH Q4HR NEB Ventolin Hfa 18 GM Inh (Albuterol Sulfate) 90 Mcg/Act Aer 1 Puff INH Q4H PRN Amlodipine (Amlodipine Besylate) 10 Mg Tab 10 Mg PO DAILY Losartan (Losartan Potassium) 25 Mg Tab 25 Mg PO DAILY Montelukast (Montelukast Sodium) 10 Mg Tab 10 Mg PO HS Omeprazole 40 Mg Cap 40 Mg PO DAILY Allergies: Coded Allergies: erythromycin base (Verified Allergy, Severe, RASH, HIVES, SOB, 04/23/18) gentamicin (Verified Allergy, Severe, RASH/SOB, 04/23/18) PT STATES HE IS NOT ALLERGIC Family History Mother with diabetes mellitus Social History Occasional alcohol. Denies tobacco and illicit drugs. Physical Exam Vital Signs Vital Signs Date Time Temp Pulse Resp B/P (MAP) Pulse Ox O2 Delivery O2 Flow Rate FiO2 04/23/18 21:45 72 18 161/68 (99) 95 Room Air 04/23/18 20:23 61 18 188/88 (121) 97 Room Air 04/23/18 20:18 18 97 Room Air 04/23/18 19:12 71 18 189/85 (119) 97 Room Air 04/23/18 18:32 99.2 69 20 156/71 (99) 97 Physical Exam GENERAL: male sitting up in bed SKIN: No rashes, ecchymoses or lesions. Cool and dry. HEAD: Atraumatic. Normocephalic. No temporal or scalp tenderness. EYES: Pupils equal round and reactive. Extraocular motions intact. No scleral icterus. No injection or drainage. ENT: Nose without bleeding, purulent drainage or septal hematoma. Throat without erythema, tonsillar hypertrophy or exudate. Uvula midline. Airway patent. NECK: Trachea midline. No JVD or lymphadenopathy. Supple, nontender, no meningeal signs. CARDIOVASCULAR: Regular rate and rhythm without murmurs, gallops, or rubs. RESPIRATORY: Clear to auscultation. Breath sounds equal bilaterally. No wheezes , rales, or rhonchi. GASTROINTESTINAL: Abdomen soft, non-tender, nondistended. No hepato-splenomegaly , or palpable masses. No guarding. MUSCULOSKELETAL: Extremities without clubbing, cyanosis, or edema. No joint tenderness, effusion, or edema noted. No calf tenderness. NEUROLOGICAL: Awake and alert. Cranial nerves II through XII intact. Motor and sensory grossly within normal limits. Normal speech. Laboratory Laboratory Tests Test 04/23/18 19:40 White Blood Count 9.2 Red Blood Count 3.92 Hemoglobin 12.2 Hematocrit 36.0 Mean Corpuscular Volume 91.9 Mean Corpuscular Hemoglobin 31.0 Mean Corpuscular Hemoglobin Concent 33.7 Red Cell Distribution Width 16.6 Platelet Count 265 Mean Platelet Volume 7.2 Neutrophils (%) (Auto) 67.4 Lymphocytes (%) (Auto) 22.7 Monocytes (%) (Auto) 7.1 Eosinophils (%) (Auto) 2.3 Basophils (%) (Auto) 0.5 Neutrophils # (Auto) 6.2 Lymphocytes # (Auto) 2.1 Monocytes # (Auto) 0.7 Eosinophils # (Auto) 0.2 Basophils # (Auto) 0.0 CBC Comment DIFF FINAL Differential Comment Prothrombin Time 10.2 Prothromb Time International Ratio 1.0 Activated Partial Thromboplast Time 25.4 Blood Urea Nitrogen 14 Creatinine 0.92 Random Glucose 34 Total Protein 7.4 Albumin 3.9 Calcium Level 9.4 Magnesium Level 1.4 Alkaline Phosphatase 84 Aspartate Amino Transf (AST/SGOT) 22 Alanine Aminotransferase (ALT/SGPT) 37 Total Bilirubin 0.4 Sodium Level 144 Potassium Level 3.6 Chloride Level 110 Carbon Dioxide Level 21.9 Anion Gap 12 Estimat Glomerular Filtration Rate 81 Total Creatine Kinase 260 Creatine Kinase MB 3.9 Troponin I 0.12 B-Type Natriuretic Peptide 109 Lipase 65 Thyroid Stimulating Hormone 3rd Gen 2.250 Result Diagram: 04/23/18193904/23/181939 Caprini VTE Risk Assessment Caprini VTE Risk Assessment: Mod/High Risk (score >= 2) Caprini Risk Assessment Model Point Value = 1 Point Value = 2 Point Value = 3 Point Value = 5 Age 41-60 Minor surgery BMI > 25 kg/m2 Swollen legs Varicose veins or History of unexplained or recurrent spontaneous Oral contraceptives or hormone replacement Sepsis (< 1 month) Serious lung disease, including pneumonia (< 1 month) Abnormal pulmonary function Acute myocardial infarction Congestive heart failure (< 1 month) History of inflammatory bowel disease Medical patient at bed rest Age 61-74 Arthroscopic surgery Major open surgery (> 45 min) Laparoscopic surgery (> 45 min) Malignancy Confined to bed (> 72 hours) Immobilizing plaster cast Central venous access Age >= 75 History of VTE Family history of VTE Factor V Leiden Prothrombin [id number] Lupus anticoagulant Anticardiolipin antibodies Elevated serum homocysteine Heparin-induced thrombocytopenia Other congenital or acquired thrombophilia Stroke (< 1 month) Elective arthroplasty Hip, pelvis, or leg fracture Acute spinal cord injury (< 1 month) Prophylaxis Regimen Total Risk Factor Score Risk Level Prophylaxis Regimen 0-1 Low Early ambulation 2 Moderate Order ONE of the following: *Sequential Compression Device (SCD) *Heparin 5000 units SQ BID 3-4 Higher Order ONE of the following medications: *Heparin 5000 units SQ TID *Enoxaparin/Lovenox 40 mg SQ daily (WT < 150 kg, CrCl > 30 mL/min) *Enoxaparin/Lovenox 30 mg SQ daily (WT < 150 kg, CrCl > 10-29 mL/min) *Enoxaparin/Lovenox 30 mg SQ BID (WT < 150 kg, CrCl > 30 mL/min) AND/OR *Sequential Compression Device (SCD) 5 or more Highest Order ONE of the following medications: *Heparin 5000 units SQ TID (Preferred with Epidurals) *Enoxaparin/Lovenox 40 mg SQ daily (WT < 150 kg, CrCl > 30 mL/min) *Enoxaparin/Lovenox 30 mg SQ daily (WT < 150 kg, CrCl > 10-29 mL/min) *Enoxaparin/Lovenox 30 mg SQ BID (WT < 150 kg, CrCl > 30 mL/min) AND *Sequential Compression Device (SCD) Assessment and Plan Assessment and Plan Assessment/plan: 1. Hypoglycemia Status post correction in the emergency department Monitor blood glucose Holding home metformin/insulin 2. COPD exacerbation/cough Patient with increased cough and purulent sputum Levaquin IV steroids Duo nebs Continue Vickers 3. Elevated troponin/chest pain Troponin 0 0.12, baseline for the patient EKG significant for a right bundle branch block and PVCs, unchanged from previous, personally reviewed ACS rule out pending; serial troponins/EKGs 4. Diabetes mellitus Plan as above 5. Hypertension/hyperlipidemia Continue home medications FEN Heart healthy diet Electrolytes: Monitor and replete as needed Heparin Michelle Frey MD April 23, 2018 23:04
[2018-04-23] MEDS ORDERED: ONDANSETRON ODT 4 MG TAB PO PRN (23:15)
[2018-04-23] MEDS: PROMETHAZINE/CODEINE 6.25 MG/10 MG/5 ML CUP PO PRN (23:43)
[2018-04-23] MEDS: HEPARIN SODIUM - SQ 10,000 UNITS/ML VIAL SQ SCH (23:43)
[2018-04-24 01:32] VITALS: PULSE 69
[2018-04-24 02:44] VITALS: BP 137/74; PULSE 69; RESP 18; TEMP 98.7; O2SAT 96
[2018-04-24 03:40] VITALS: PULSE 77
[2018-04-24] MEDS: PROMETHAZINE/CODEINE 6.25 MG/10 MG/5 ML CUP PO PRN ×2 (03:57→09:10)
[2018-04-24 04:59] LABS: AUTOMATED NEUTROPHIL # 4.3 TH/MM3 (1.8-7.7); HEMATOCRIT 32.9 % (39.0-51.0); HEMOGLOBIN 11.3 GM/DL (13.0-17.0); LYMPH % 7.8 % (9.0-44.0); LYMPHOCYTE # 0.4 TH/MM3 (1.0-4.8); MEAN CELL VOLUME 91.6 FL (80.0-100.0); MEAN CORPUSCULAR HEMOGLOBIN 31.4 PG (27.0-34.0); MEAN CORPUSCULAR HGB CONC 34.2 % (32.0-36.0); MEAN PLATELET VOLUME 7.2 FL (7.0-11.0); NEUT % 91.2 % (16.0-70.0); PLATELET COUNT 228 TH/MM3 (150-450); RED BLOOD COUNT 3.59 MIL/MM3 (4.50-5.90); RED CELL DISTRIBUTION WIDTH 16.3 % (11.6-17.2); WHITE BLOOD COUNT 4.7 TH/MM3 (4.0-11.0)
[2018-04-24 05:27] LABS: BICARBONATE 23.1 MEQ/L (21.0-32.0); CALCIUM 8.8 MG/DL (8.5-10.1); CREATININE 0.95 MG/DL (0.60-1.30)
[2018-04-24 05:29] LABS: TROPONIN I 0.09 NG/ML (0.02-0.05)
[2018-04-24 07:53] VITALS: BP 141/67; PULSE 76; RESP 20; TEMP 98.1; O2SAT 95
[2018-04-24 08:35] VITALS: PULSE 79
[2018-04-24] MEDS ORDERED: LOSARTAN 25 MG TAB PO SCH (09:00)
[2018-04-24] MEDS ORDERED: DOCUSATE SODIUM 50 MG/SENNA 8.6 MG TAB PO SCH (09:00)
[2018-04-24] MEDS ORDERED: ASPIRIN 81 MG CHEW TAB CHEW SCH (09:00)
[2018-04-24] MEDS ORDERED: FLUTICASONE 200 MCG/VILANTEROL 25 MCG INHALER INH SCH (09:00)
[2018-04-24] MEDS ORDERED: METOPROLOL TARTRATE 25 MG TAB PO SCH (09:00)
[2018-04-24] MEDS ORDERED: SODIUM CHLORIDE 0.9% FLUSH 10 ML FLUSH IV FLUSH SCH (09:00)
[2018-04-24] MEDS ORDERED: PANTOPRAZOLE SOD 40 MG DELAYED RELEASE TAB PO SCH (09:00)
[2018-04-24] MEDS ORDERED: methylPREDNISolone SOD SUCC 40 MG/1 ML VIAL IV PUSH SCH (09:00)
[2018-04-24] MEDS: HEPARIN SODIUM - SQ 10,000 UNITS/ML VIAL SQ SCH (09:08)
[2018-04-24] MEDS ORDERED: LEVA500T33 PO (10:07)
[2018-04-24] MEDS ORDERED: PRED5PAK PO (10:07)
[2018-04-24] MEDS ORDERED: Promethazine/Codeine Liq PO (10:07)
[2018-04-24] MEDS ORDERED: FURO20TA PO (10:07)
--- NOTE | 2018-04-24 10:08 | HHI.DCPOC ---
Discharge Care Plan Diagnosis: (1) Acute exacerbation of chronic obstructive pulmonary disease (COPD) (2) Diabetes (3) Hypoglycemia (4) HTN (hypertension) (5) Elevated troponin I level Goals to Promote Your Health * To prevent worsening of your condition and complications * To maintain your health at the optimal level Directions to Meet Your Goals Take your medications as prescribed Follow your dietary instruction Follow activity as directed Keep your appointments as scheduled Take your immunizations and boosters as scheduled If your symptoms worsen call your PCP, if no PCP go to Urgent Care Center or Emergency Room Smoking is Dangerous to Your Health. Avoid second hand smoke Call the 24-hour hour crisis hotline for domestic abuse at Jorden Hughes MD Apr 24, 2018 10:08
--- NOTE | 2018-04-24 10:13 | HHI.PR ---
Subjective Remarks Follow-up hypoglycemia. Patient states that he feels much better today. He wants to go home. Denies chest pain, dyspnea, lightheadedness. Has been ambulating to the restroom without difficulty. Objective Vitals Vital Signs Date Time Temp Pulse Resp B/P (MAP) Pulse Ox O2 Delivery O2 Flow Rate FiO2 04/24/18 07:53 98.1 76 20 141/67 (91) 95 04/24/18 03:40 77 04/24/18 02:44 98.7 69 18 137/74 (95) 96 04/24/18 01:32 69 04/23/18 23:59 04/23/18 23:56 98.1 79 16 175/84 (114) 96 04/23/18 22:59 73 18 167/79 (108) 93 Room Air 04/23/18 21:45 72 18 161/68 (99) 95 Room Air 04/23/18 20:23 61 18 188/88 (121) 97 Room Air 04/23/18 20:18 18 97 Room Air 04/23/18 19:12 71 18 189/85 (119) 97 Room Air 04/23/18 18:32 99.2 69 20 156/71 (99) 97 Result Diagram: 04/24/1842804/24/18428 Imaging Last Impressions Chest X-Ray 04/23/18 192 Signed Impressions: CONCLUSION: No acute cardiopulmonary disease. Objective Remarks General: No acute distress. Heart: Regular rate and rhythm. No murmur. Lungs: Mild scattered wheeze. Breathing is nonlabored. Abdomen: Soft, nontender, nondistended. Extremities: No lower extremity edema. Bilateral compression stockings. Psych: Alert and oriented. Neuro: Normal speech. No focal deficits noted. Procedures None Urinary Catheter: No Vascular Central Line Catheter: No A/P Assessment and Plan 1. Hypoglycemia: Resolved. Patient reports vomiting after eating yesterday due to coughing. He states that he was not able to actually keep any food down. He did take his insulin yesterday morning. Glucose has improved and patient is now able to keep food down. 2. COPD exacerbation: Patient has had a cough for the last 10 days. Now productive of whitish. Continue Levaquin, steroids, bronchodilators. 3. Elevated troponin: Patient has chronic mild elevation of troponin. His troponin is at his baseline. Has been evaluated by cardiology in the past and conservative management was recommended. No chest pain reported. 4. Diabetes mellitus: Resume metformin, insulin now that oral intake has improved. 5. Hypertension: Continue home medications. 6. Hyperlipidemia: Continue statin. 7. DVT prophylaxis: Heparin. 8. Lower extremity edema: Resume Lasix. Discharge Planning Discharge home in stable condition. Follow-up with PCP. Diabetic diet. Activity as tolerated. Jorden Hughes MD Apr 24, 2018 10:13
[2018-04-24 11:06] LABS: TROPONIN I 0.1 NG/ML (0.02-0.05)
--- NOTE | 2018-04-24 15:14 | EKG ---
Date Performed: 04/23/2018 Time Performed: 19:51:41 PTAGE: 72 years EKG: ECTOPIC ATRIAL RHYTHM VERSUS Sinus rhythm RIGHT BUNDLE BRANCH BLOCK LEFT ANTERIOR FASCICULAR BLOCK ABNORMAL ECG Compared to PREVIOUS TRACING , the rhythm now appears to be sinus or ectopic atrial. PREVIOUS TRACING : 08/24/2017 13.01 DOCTOR: Severino Fatima Interpretating Date/Time 04/24/2018 15:13:32
--- NOTE | 2018-04-24 15:14 | EKG ---
Date Performed: 04/24/2018 Time Performed: 02:49:11 PTAGE: 72 years EKG: Sinus rhythm RIGHT BUNDLE BRANCH BLOCK LEFT ANTERIOR FASCICULAR BLOCK POSSIBLE SEPTAL MYOCARDIAL INFARCTION ABNOR MAL ECG Since PREVIOUS TRACING , no significant change noted PREVIOUS TRACIN04/23/2018 19.51 DOCTOR: Severino Fatima Interpretating Date/Time 04/24/2018 15:13:40
[2018-04-24] MEDS ORDERED: TAMSULOSIN HCL 0.4 MG CAP PO SCH (21:00)
[2018-04-24] MEDS ORDERED: ATORVASTATIN 80 MG TAB PO SCH (21:00)
[2018-04-24] MEDS ORDERED: traZODone HCL 100 MG TAB PO SCH (21:00)
--- NOTE | 2018-04-25 15:12 | EKG ---
Date Performed: 04/24/2018 Time Performed: 08:46:18 PTAGE: 72 years EKG: Sinus rhythm WITH FIRST DEGREE AV BLOCK RIGHT BUNDLE BRANCH BLOCK Left axis deviation Since PREVIOUS TRACING , R-wave progression slightly improved across the precordium. PREVIOUS T RACIN04/24/2018 02.49 DOCTOR: Yovanny Guillen Interpretating Date/Time 04/25/2018 15:10:43
== END 2018-04-24 12:25 | disposition home or self-care (01) ==
LOC: NEPC 17:58 → NEDA 21:37 → NEPGCP 23:54
PROVIDERS: ADMIT Family Medicine; ATTEND Family Medicine
DX: E11.649 Type 2 diabetes mellitus with hypoglycemia without coma (principal); J44.1 Chronic obstructive pulmonary disease with (acute) exacerbation; R74.8 Abnormal levels of other serum enzymes; I45.2 Bifascicular block; R42 Dizziness and giddiness; I25.10 Atherosclerotic heart disease of native coronary artery without angina pectoris; I11.0 Hypertensive heart disease with heart failure; I50.9 Heart failure, unspecified; E78.00 Pure hypercholesterolemia, unspecified; I25.2 Old myocardial infarction; K21.9 Gastro-esophageal reflux disease without esophagitis; H91.91 Unspecified hearing loss, right ear; M19.90 Unspecified osteoarthritis, unspecified site; Z86.73 Personal history of transient ischemic attack (TIA), and cerebral infarction without residual deficits; Z79.899 Other long term (current) drug therapy; Z79.82 Long term (current) use of aspirin; Z79.4 Long term (current) use of insulin; Z98.1 Arthrodesis status
CPT/HCPCS: 71045; 80048; 80053; 82550; 82552; 82948; 83690; 83735; 83880; 84443; 84484; 85025; 85610; 85730; 93005; 94640; 94664; 96365; 96372; 96375; 96376; 99285; G0378; J1644; J1956; J2920; J2930

== ENCOUNTER 2018-09-13 18:48 | Inpatient (IN) ==
[2018-09-13] MEDS ORDERED: Sod Chloride 0.9% Inj 1,000 ML IV.SIG ONE (20:11)
[2018-09-13 20:38] LABS: Baso % (Auto) 0.6 % (0.0-2.0); Eos # (Auto) 0.2 th/mm3 (0.0-0.4); Eos % (Auto) 3.6 % (0.0-4.0); Hematocrit 35.6 % (39.0-51.0); Hemoglobin 12.3 gm/dL (13.0-17.0); Lymph # (Auto) 1.1 th/mm3 (1.0-4.8); Lymph % (Auto) 18.5 % (9.0-44.0); Mean Corpuscular HGB Conc 34.4 % (32.0-36.0); Mean Corpuscular Hemoglobin 31.4 pg (27.0-34.0); Mean Corpuscular Volume 91.2 fL (80.0-100.0); Mean Platelet Volume 7.7 fL (7.0-11.0); Mono # (Auto) 0.5 th/mm3 (0.0-0.9); Mono % (Auto) 9.1 % (0.0-8.0); Neut # (Auto) 4.1 th/mm3 (1.8-7.7); Neut % (Auto) 68.2 % (16.0-70.0); Platelet Count 196 th/mm3 (150-450)
--- NOTE | 2018-09-13 20:42 | CT ---
EXAM DATE: 09/13/2018 8:27 PM EDT AGE/SEX: 73 years / Male INDICATIONS: Dizziness. CLINICAL DATA: This is the patient's initial encounter. Patient reports that signs and symptoms have been present for 1 day and indicates a pain score of 0/10. MEDICAL/SURGICAL HISTORY: Hypertension. Chronic obstructive pulmonary disease. Diabetes. . Cervic al fusion RADIATION DOSE: 43.55 CTDI (mGy) [place] [facility] [place]17/[place]. . TECHNIQUE: CT of the head without contrast. Using automated exposure control and adjustment of the mA and/or kV according to patient size, radiation dose was kept as low as reasonably achievable to ob tain optimal diagnostic quality images. DICOM format image data is available electronically for revi ew and comparison. FINDINGS: Cerebrum: The ventricles are normal for age. No evidence of midline shift, mass lesion, hemorrhage or acute infarction. No extraaxial fluid collections are seen. Posterior Fossa: The cerebellum and brainstem are intact. The 4th ventricle is midline. The cerebe llopontine angle is unremarkable. Extracranial: The visualized portion of the orbits is intact. Skull: The calvaria is intact. No evidence of skull fracture. CONCLUSION: 1. No acute intracranial abnormalities. Remote lacunar infarct left basal ganglia. . Electronically signed by: Greg Desai MD 09/13/2018 8:41 PM EDT
[2018-09-13 20:46] LABS: Calcium 8.4 mg/dL (8.5-10.1); Carbon Dioxide 25.4 meq/L (21.0-32.0); Potassium 3.9 meq/L (3.5-5.1)
[2018-09-13] MEDS ORDERED: Gadobutrol PF 10 MMOL/10 ML Vial (for RAD) IV.SIG ONE (21:02)
--- NOTE | 2018-09-13 21:03 | ED ---
HPI General Chief Complaint: Dizziness Stated Complaint: diziness Time Seen by Provider: 09/13/18 19:55 Source: patient Mode of arrival: ambulatory Limitations: no limitations History of Present Illness HPI Narrative: 73-year-old male came to the emergency room with history of being quite dizzy when he got up from his nap at 2 PM today. Patient says that he has been having problems with dizziness and his balance for past few weeks. He has been evaluated by his primary care as well as in the emergency room during his past 2 visits. He has had CAT scan of his brain done with test results being normal. Patient is a diabetic and says that his blood sugar has been doing good. Patient denies of any chest pain. Denies of any syncopal episode. He says that his primary care referred him to a neurologist and he has an appointment coming up next week with the neurologist. He has also recommended him to see an ENT specialist for possible ear related issue. Patient says that he has been having trouble hearing out of his right ear lately. He seems very anxious while he is talking to me. Vital signs were otherwise stable. No history of nausea or vomiting. No history of headache. No history of fever or chills. No history of trauma. MD complaint: Reports dizziness Onset (ago): hour(s) Timing: awoke with symptoms Description: Reports "room spinning" History of similar episodes: Yes History of trauma: No Relieving factors: nothing Exacerbating factors: nothing Related Data Home Medications Medication Instructions Recorded Confirmed albuterol sulfate [Ventolin HFA] 90 mcg INHALATION PRN PRN 07/29/18 09/14/18 aspirin 81 mg PO DAILY 07/29/18 09/14/18 atorvastatin 80 mg PO EVERY OTHER DAY 07/29/18 09/14/18 fluticasone 2 spray INTRANASAL DAILY 07/29/18 09/14/18 fluticasone-vilanterol [Breo 1 inh INHALATION DAILY 07/29/18 09/14/18 Ellipta] furosemide 20 mg PO DAILY 07/29/18 09/14/18 insulin glargine-lixisenatide 30 units SUB-Q DAILY 07/29/18 09/14/18 [Soliqua 100/33] ipratropium bromide 2 spray INTRANASAL QID 07/29/18 09/14/18 losartan 25 mg PO DAILY 07/29/18 09/14/18 metoprolol tartrate 12.5 mg PO BID 07/29/18 09/14/18 omeprazole 40 mg PO DAILY 07/29/18 09/14/18 tamsulosin 0.4 mg PO BID 07/29/18 09/14/18 trazodone 100 mg PO DAILY 07/29/18 09/14/18 Previous Rx's Medication Instructions Recorded meclizine 25 mg PO Q8H #15 tab 09/14/18 Allergies Allergy/AdvReac Type Severity Reaction Status Date / Time erythromycin base Allergy Severe RASH, Verified 09/13/18 19:17 HIVES, SOB gentamicin Allergy Severe RASH/SOB Verified 09/13/18 19:17 Review of Systems ROS: all other systems reviewed are negative Neurologic Reports [facility] Medical History Medical History COPD (chronic obstructive pulmonary disease) (Acute) Diabetes mellitus (Acute) HTN (hypertension) (Acute) Hyperlipidemia (Acute) Social History Social History Substance History: No History of Abuse Second Hand Smoke Exposure: No Smoking Status: Current every day smoker Tobacco Type: Cigarettes How Often Do You Have a Drink Containing Alcohol: Never Recent Travel in [facility] within the Last 8 Weeks: No Recent Out of Country Travel within the Last 8 Weeks: No Immunization History Tetanus Immunization: Unsure Exam Narrative Exam Narrative: GENERAL: Awake, alert, anxious, no obvious distress SKIN: Focused skin assessment warm/dry. HEAD: Atraumatic. Normocephalic. EYES: Pupils equal and round. No scleral icterus. No injection or drainage. ENT: No nasal bleeding or discharge. Mucous membranes pink and moist. NECK: Trachea midline. No JVD. CARDIOVASCULAR: Regular rate and rhythm. No murmur appreciated. RESPIRATORY: No accessory muscle use. Clear to auscultation. Breath sounds equal bilaterally. GASTROINTESTINAL: Abdomen soft, non-tender, nondistended. Hepatic and splenic margins not palpable. MUSCULOSKELETAL: No obvious deformities. No clubbing. No cyanosis. No edema. NEUROLOGICAL: Awake and alert. No obvious cranial nerve deficits. Motor grossly within normal limits. Normal speech. PSYCHIATRIC: Appropriate mood and affect; insight and judgment normal. Course Initial Documented Vital Signs Temperature 98 F 09/13/18 19:13 Pulse Rate 76 09/13/18 19:13 Respiratory Rate 20 09/13/18 19:13 Blood Pressure 138/89 09/13/18 19:13 Pulse Oximetry 95 09/13/18 19:13 Last Documented Vital Signs Temperature 98.0 F 09/15/18 12:00 Pulse Rate 68 09/15/18 12:00 Respiratory Rate 18 09/15/18 12:00 Blood Pressure 158/76 H 09/15/18 12:00 Pulse Oximetry 96 09/15/18 12:00 Medical Decision Making MDM Narrative Medical decision making narrative: 9:55 PM blood test results are back and patient has elevated troponin. However upon looking back patient has had continuous elevated troponin around that range. As per the last admission by the hospitalist it was dictated that this is patient's baseline troponin. However he does have elevated BUN and creatinine that significantly different from the last one. Patient was given 1 L of IV fluid bolus and I have ordered a second liter. CT scan of the head was suggestive of old lacunar infarct. An MRA of the brain is negative. 10:08 PM patient was ambulated and did poorly. He continued to have the disequilibrium and slow and wide-based gait. I decided to admit him at this point. Medical Screen Exam Complete: Yes Emergency Medical Condition: Yes Lab Data Result diagrams: 09/14/18 05:59 09/14/18 05:59 Lab Results 09/13/18 09/13/18 09/13/18 Range/Units 20:25 20:25 20:25 WBC 6.0 (4.0-11.0) th/mm3 RBC 3.90 L (4.50-5.90) mil/mm3 Hgb 12.3 L (13.0-17.0) gm/dL Hct 35.6 L (39.0-51.0) % MCV 91.2 (80.0-100.0) fL MCH 31.4 (27.0-34.0) pg MCHC 34.4 (32.0-36.0) % RDW 14.0 (11.6-17.2) % Plt Count 196 (150-450) th/mm3 MPV 7.7 (7.0-11.0) fL Neut % (Auto) 68.2 (16.0-70.0) % Lymph % (Auto) 18.5 (9.0-44.0) % [place] % (Auto) 9.1 H (0.0-8.0) % Eos % (Auto) 3.6 (0.0-4.0) % Baso % (Auto) 0.6 (0.0-2.0) % Neut # (Auto) 4.1 (1.8-7.7) th/mm3 Lymph # (Auto) 1.1 (1.0-4.8) th/mm3 [place] # (Auto) 0.5 (0.0-0.9) th/mm3 Eos # (Auto) 0.2 (0.0-0.4) th/mm3 Baso # (Auto) 0.0 (0.0-0.2) th/mm3 WBC Differential . Differential Comment Auto diff final Sodium 144 (136-145) meq/L Potassium 3.9 (3.5-5.1) meq/L Chloride 111 H (98-107) meq/L Carbon Dioxide 25.4 (21.0-32.0) meq/L Anion Gap 8 (5-15) meq/L BUN 49 H (7-18) mg/dL Creatinine 2.38 H (0.60-1.30) mg/dL Estimated GFR 27 L (>89) mL/min POC Glucose (68-110) mg/dl Random Glucose 118 H (74-106) mg/dL Calcium 8.4 L (8.5-10.1) mg/dL Total Bilirubin (0.2-1.0) mg/dL AST (15-37) U/L ALT (12-78) U/L Alkaline Phosphatase (45-117) U/L Troponin I 0.10 H (0.02-0.05) ng/mL Total Protein (6.4-8.2) g/dL Albumin (3.4-5.0) g/dL Urine Color (Yellw/Straw) Urine Clarity (Clear) Urine pH (5.0-8.5) Ur Specific [place] (1.002-1.035) Urine Protein (Neg-Trace) mg/dL Urine Glucose (UA) (Negative) mg/dL Urine Ketones (Negative) mg/dL Urine Occult Blood (Negative) Urine Nitrate (Negative) Urine Bilirubin (Negative) Urine Urobilinogen (Less than 2) mg/dL Ur Leukocyte Esterase (Negative) Urine WBC (0-5) /hpf Urine Mucus (Occasional) /lpf Ur Microscopic Review Urine Opiates Screen (Neg) Ur Barbiturates Screen (Neg) Ur Amphetamines Screen (Neg) U Benzodiazepines Scrn (Neg) Urine Cocaine Screen (Neg) U Cannabinoids Screen (Neg) 09/13/18 09/13/18 09/14/18 Range/Units 21:35 21:35 00:46 WBC (4.0-11.0) th/mm3 RBC (4.50-5.90) mil/mm3 Hgb (13.0-17.0) gm/dL Hct (39.0-51.0) % MCV (80.0-100.0) fL MCH (27.0-34.0) pg MCHC (32.0-36.0) % RDW (11.6-17.2) % Plt Count (150-450) th/mm3 MPV (7.0-11.0) fL Neut % (Auto) (16.0-70.0) % Lymph % (Auto) (9.0-44.0) % [place] % (Auto) (0.0-8.0) % Eos % (Auto) (0.0-4.0) % Baso % (Auto) (0.0-2.0) % Neut # (Auto) (1.8-7.7) th/mm3 Lymph # (Auto) (1.0-4.8) th/mm3 [place] # (Auto) (0.0-0.9) th/mm3 Eos # (Auto) (0.0-0.4) th/mm3 Baso # (Auto) (0.0-0.2) th/mm3 WBC Differential Differential Comment Sodium (136-145) meq/L Potassium (3.5-5.1) meq/L Chloride (98-107) meq/L Carbon Dioxide (21.0-32.0) meq/L Anion Gap (5-15) meq/L BUN (7-18) mg/dL Creatinine (0.60-1.30) mg/dL Estimated GFR (>89) mL/min POC Glucose (68-110) mg/dl Random Glucose (74-106) mg/dL Calcium (8.5-10.1) mg/dL Total Bilirubin (0.2-1.0) mg/dL AST (15-37) U/L ALT (12-78) U/L Alkaline Phosphatase (45-117) U/L Troponin I 0.11 H (0.02-0.05) ng/mL Total Protein (6.4-8.2) g/dL Albumin (3.4-5.0) g/dL Urine Color Yellow (Yellw/Straw) Urine Clarity Hazy H (Clear) Urine pH 5.0 (5.0-8.5) Ur Specific [place] 1.014 (1.002-1.035) Urine Protein Negative (Neg-Trace) mg/dL Urine Glucose (UA) Negative (Negative) mg/dL Urine Ketones Negative (Negative) mg/dL Urine Occult Blood Small H (Negative) Urine Nitrate Negative (Negative) Urine Bilirubin Negative (Negative) Urine Urobilinogen Less than 2 (Less than 2) mg/dL Ur Leukocyte Esterase Negative (Negative) Urine WBC 2 (0-5) /hpf Urine Mucus Few H (Occasional) /lpf Ur Microscopic Review Not Reportable Urine Opiates Screen Neg (Neg) Ur Barbiturates Screen Neg (Neg) Ur Amphetamines Screen Neg (Neg) U Benzodiazepines Scrn Neg (Neg) Urine Cocaine Screen Neg (Neg) U Cannabinoids Screen Neg (Neg) 09/14/18 09/14/18 09/14/18 Range/Units 05:59 05:59 07:51 WBC 4.8 (4.0-11.0) th/mm3 RBC 4.21 L (4.50-5.90) mil/mm3 Hgb 13.4 (13.0-17.0) gm/dL Hct 39.1 (39.0-51.0) % MCV 92.8 (80.0-100.0) fL MCH 31.9 (27.0-34.0) pg MCHC 34.4 (32.0-36.0) % RDW 13.7 (11.6-17.2) % Plt Count 262 D (150-450) th/mm3 MPV 8.5 (7.0-11.0) fL Neut % (Auto) 50.0 (16.0-70.0) % Lymph % (Auto) 25.1 (9.0-44.0) % [place] % (Auto) 20.2 H (0.0-8.0) % Eos % (Auto) 3.8 (0.0-4.0) % Baso % (Auto) 0.9 (0.0-2.0) % Neut # (Auto) 2.4 (1.8-7.7) th/mm3 Lymph # (Auto) 1.2 (1.0-4.8) th/mm3 [place] # (Auto) 1.0 H (0.0-0.9) th/mm3 Eos # (Auto) 0.2 (0.0-0.4) th/mm3 Baso # (Auto) 0.0 (0.0-0.2) th/mm3 WBC Differential . Differential Comment Auto diff final Sodium 140 (136-145) meq/L Potassium 3.7 (3.5-5.1) meq/L Chloride 105 (98-107) meq/L Carbon Dioxide 28.7 (21.0-32.0) meq/L Anion Gap 6 (5-15) meq/L BUN 7 (7-18) mg/dL Creatinine 1.04 (0.60-1.30) mg/dL Estimated GFR 70 L (>89) mL/min POC Glucose 85 (68-110) mg/dl Random Glucose 93 (74-106) mg/dL Calcium 8.5 (8.5-10.1) mg/dL Total Bilirubin 0.8 (0.2-1.0) mg/dL AST 77 H (15-37) U/L ALT 107 H (12-78) U/L Alkaline Phosphatase 83 (45-117) U/L Troponin I Less than 0.02 L (0.02-0.05) ng/mL Total Protein 7.8 (6.4-8.2) g/dL Albumin 3.1 L (3.4-5.0) g/dL Urine Color (Yellw/Straw) Urine Clarity (Clear) Urine pH (5.0-8.5) Ur Specific [place] (1.002-1.035) Urine Protein (Neg-Trace) mg/dL Urine Glucose (UA) (Negative) mg/dL Urine Ketones (Negative) mg/dL Urine Occult Blood (Negative) Urine Nitrate (Negative) Urine Bilirubin (Negative) Urine Urobilinogen (Less than 2) mg/dL Ur Leukocyte Esterase (Negative) Urine WBC (0-5) /hpf Urine Mucus (Occasional) /lpf Ur Microscopic Review Urine Opiates Screen (Neg) Ur Barbiturates Screen (Neg) Ur Amphetamines Screen (Neg) U Benzodiazepines Scrn (Neg) Urine Cocaine Screen (Neg) U Cannabinoids Screen (Neg) Imaging Data Radiologist's impression: Head CT 09/13/18 20:11 CONCLUSION: 1. No acute intracranial abnormalities. Remote lacunar infarct left basal ganglia. . Head MRA 09/13/18 20:11 CONCLUSION: 1. Negative MRA Cow ([facility]) non contrast. Head/Brain Mag Res Venography 09/13/18 20:11 CONCLUSION: 1. Negative MRV of the brain. ECG Data Attestation: I personally reviewed and interpreted this ECG as follows: Interpretation: Twelve-lead EKG was reviewed by me. Normal sinus rhythm, left axis deviation, right bundle branch block, PVCs. Heart rate of 68 bpm. Discharge Plan Discharge Disposition Patient Disposition: 30 Still Patient Discharge Condition Condition: Stable Discharge Order Discharge Orders: Discharge Order (Routine); Ordered 09/14/18 Ordered By: Abbie Espinoza Discharge Details Anticipated Discharge Date: 09/14/18 Discharge Comment: Discharge pending PT eval/recommendatins and Orthostatic BP measurements Physicians Team ED Provider: Yared Yanez Primary Care Provider: Flo Guzman Attending Provider: Neal Lyn Other Providers: El Gallegos ; Essie Sheldon ; Jim Vital Status ED Status: Left Department Discharge Information Discharge Date/Time: 09/13/18 23:58
--- NOTE | 2018-09-13 21:36 | MR ---
EXAM DATE: 09/13/2018 8:31 PM EDT AGE/SEX: 73 years / Male INDICATIONS: Dizziness. CLINICAL DATA: This is the patient's initial encounter. Patient reports that signs and symptoms have been present for 3 weeks and indicates a pain score of 0/10. MEDICAL/SURGICAL HISTORY: Chronic obstructive pulmonary disease. Diabetes mellitus type II. H ypercholesterolemia. Hypertension. Rotator cuff, right. COMPARISON: No prior exams available for comparison. TECHNIQUE: 3D [id number] MRA was performed. Source images, multiplanar STS MIP, and 3D volum e MIP reconstructions were reviewed. FINDINGS: There is excellent visualization of the major intracranial arteries out to the second-order branch ve ssels. There is no evidence for aneurysm, vessel truncation or stenosis, and no evidence for vascula r malformation. CONCLUSION: 1. Negative MRA Cow ([facility]) non contrast. Electronically signed by: Greg Desai MD 09/13/2018 9:35 PM EDT
--- NOTE | 2018-09-13 21:38 | MR ---
EXAM DATE: 09/13/2018 8:31 PM EDT AGE/SEX: 73 years / Male INDICATIONS: Dizziness. CLINICAL DATA: This is the patient's initial encounter. Patient reports that signs and symptoms have been present for 1 day and indicates a pain score of 0/10. MEDICAL/SURGICAL HISTORY: Chronic obstructive pulmonary disease. Diabetes mellitus type II. H ypercholesterolemia. Hypertension. Rotator cuff, right. COMPARISON: No prior exams available for comparison. TECHNIQUE: MR cerebral venography is performed without and with 10cc ml Gadavist (gadobutrol) contra st (single exam dose). Source images, 3D volume MIP, and sliding thin slab MIP reconstructions were reviewed. FINDINGS: There is excellent visualization of the major intracranial arteries out to the second-order branch ve ssels. There is no evidence for aneurysm, vessel truncation or stenosis, and no evidence for vascula r malformation. CONCLUSION: 1. Negative MRV of the brain. Electronically signed by: Greg Desai MD 09/13/2018 9:37 PM EDT
[2018-09-13 21:51] LABS: Bilirubin,Urine Negative (Negative); Clarity,Urine Hazy (Clear); Color,Urine Yellow (Yellw/Straw); Glucose,Urine (UA) Negative (Negative); Leukocyte Esterase,Urine Negative (Negative); Mucus,Urine Few /lpf (Occasional); Nitrite,Urine Negative (Negative); Specific Gravity,Urine 1.014 (1.002-1.035)
[2018-09-13] MEDS ORDERED: Sod Chloride 0.9% Inj 1,000 ML IV.SIG SCH (22:00)
[2018-09-13] MEDS ORDERED: Acetaminophen 325 MG Tablet PO PRN (22:20)
[2018-09-13] MEDS ORDERED: Bisacodyl 10 MG Supp RECTAL PRN (22:20)
[2018-09-13] MEDS ORDERED: Dextrose 50% in Water 50 ML Vial IV.PUSH PRN (22:23)
--- NOTE | 2018-09-13 22:24 | P.HPIM ---
History of Present Illness Primary Care Physician: Flo Guzman MD History of Present Illness: This is a 73-year-old male with a PMH of HTN, Hyperlipidemia, DM and COPD who presented to ER with complaints of dizziness and gait instability x2 wks. States he was seen by his PCP few weeks ago and referred to ENT and Neurologist , has upcoming appointment this coming Friday. Today, states he had intense dizziness to the point where he was unable to ambulate without falling to one side, forced to sit in his recliner for several hours as unable to get up. On arrival, BP 138/89, HR 76, O2 sat 95% on RA, Afebrile. CBC unremarkable. Creatinine 2.38, previously 0.87 on 05/20/2018. Troponin 0 0.10, chronically elevated in comparison to previous labs, troponin 0 0.12 on 05/20/2018. Patient denies complaints of chest pain. UA negative for UTI. Urine Drug Screen negative. CT Head with no acute findings, remote lacunar infarct. MRA Head negative. MRV Head negative. While in ER, pt attempted ambulation, however unable to walk without assistance due to ongoing dizziness. S/p Meclizine in ER w/ minimal improvement. - Diagnosis (1) Dizziness (2) Gait instability (3) Elevated troponin (4) ABIMAEL (acute kidney injury) (5) DM (diabetes mellitus) Inpatient Certification: I certify that the inpatient services were ordered in accordance with Medicare regulations governing the order. This includes certification that hospital inpatient services are reasonable and necessary and in the case of services not specified as inpatient-only under 42 CFR 419.22(n), that they are appropriately provided as inpatient services in accordance to with the 2-midnight benchmark under 43 CFR 412.3(e) Estimated Total Length of Stay (Days): 2 Plans for Post Hospital Care: Not yet determined Review of Systems PAST FAMILY HISTORY: Reviewed. No h/o DM or CAD All other systems reviewed negative except as stated in HPI [facility] - History History Provided By: Patient - Medical History Medical History: Medical History (Last Reviewed 09/13/18 @ 21:54 by Yared Yanez MD) COPD (chronic obstructive pulmonary disease) Diabetes mellitus HTN (hypertension) Hyperlipidemia - Tobacco History Second Hand Smoke Exposure: No Tobacco Use In Past 30 Days: Yes Smoking Status: Current every day smoker Tobacco Type: Cigarettes - Alcohol History How Often Do You Have a Drink Containing Alcohol: Never - Substance Use History Substance History: No History of Abuse - Travel History Recent Travel in the [place] Within the Last 8 Weeks: No Recent Travel Out of the Country Within the Last 8 Weeks: No - Immunization History Tetanus Immunization: Unsure Medications and Allergies Active Medications: Active Medications Acetaminophen (Tylenol) 650 mg PO Q4H PRN PRN Reason: Temp > 100.4 Aspirin (Ecotrin) 81 mg PO DAILY MEI Atorvastatin Calcium (Lipitor) 80 mg PO EVERY OTHER DAY MEI Dextrose (D50w Vial) 50 ml IV.PUSH UNSCH PRN PRN Reason: PER HYPOGLYCEMIA PROTOCOL Furosemide (Lasix) 20 mg PO DAILY MEI Glucagon (Glucagon Inj) 1 mg OTHER PRN PRN PRN Reason: for Hypoglycemia Protocol Sodium Chloride (Ns Inj) 1,000 mls @ 0 mls/hr IV.SIG BOLUS MEI Sodium Chloride (Ns Flush) 2 ml IV.FLUSH PRN PRN PRN Reason: FLUSH AFTER USING IV ACCESS Allergies Allergy/AdvReac Type Severity Reaction Status Date / Time erythromycin base Allergy Severe RASH, Verified 09/13/18 19:17 HIVES, SOB gentamicin Allergy Severe RASH/SOB Verified 09/13/18 19:17 Home Medications Medication Instructions Recorded Confirmed Type albuterol sulfate [Ventolin HFA] 90 mcg INHALATION PRN PRN 07/29/18 08/17/18 History amlodipine 10 mg PO DAILY 07/29/18 08/17/18 History aspirin 81 mg PO DAILY 07/29/18 08/17/18 History atorvastatin 80 mg PO EVERY OTHER DAY 07/29/18 08/17/18 History fluticasone 2 spray INTRANASAL DAILY 07/29/18 08/17/18 History fluticasone-vilanterol [Breo 1 inh INHALATION DAILY 07/29/18 08/17/18 History Ellipta] furosemide 20 mg PO DAILY 07/29/18 08/17/18 History insulin glargine-lixisenatide 26 units SUB-Q DAILY 07/29/18 08/17/18 History [Soliqua 100/33] ipratropium bromide 2 spray INTRANASAL QID 07/29/18 08/17/18 History losartan 25 mg PO DAILY 07/29/18 08/17/18 History metformin 1,000 mg PO BID 07/29/18 08/17/18 History metoprolol tartrate 12.5 mg PO DAILY 07/29/18 08/17/18 History omeprazole 40 mg PO DAILY 07/29/18 08/17/18 History tamsulosin 0.4 mg PO BID 07/29/18 08/17/18 History trazodone 100 mg PO DAILY 07/29/18 08/17/18 History Exam Vital signs: Vital Signs 09/13/18 19:13 Temperature 98 F Pulse Rate 76 Respiratory Rate 20 Blood Pressure 138/89 Pulse Oximetry 95 Intake & Output 09/13/18 09/13/18 09/14/18 06:59 18:59 06:59 Weight 99.79 kg Narrative: PE: GENERAL: Elderly white male in no acute distress. SKIN: Focused skin assessment warm and dry. HEENT: PERRLA, EOMI. No scleral icterus or conjunctival pallor. No lid lag or facial droop. CARDIOVASCULAR: Regular rate and rhythm. No obvious murmurs to auscultation. No chest tenderness to palpation. RESPIRATORY: No obvious rhonchi or wheezing. Clear to auscultation. Breath sounds equal bilaterally. GASTROINTESTINAL: Abdomen soft, non-tender, nondistended. BS normal. MUSCULOSKELETAL: Extremities without clubbing, cyanosis, or edema. No obvious deformities. NEUROLOGICAL: Awake, alert and oriented x4. No focal neurologic deficits. Moving both upper and lower extremities spontaneously. PSYCHIATRIC: Appropriate mood and affect. Insight and judgment normal. Results - Labs CBC & Chem 7: 09/13/18 20:25 09/13/18 20:25 Labs: Short CBC 09/13/18 Range/Units 20:25 WBC 6.0 (4.0-11.0) th/mm3 Hgb 12.3 L (13.0-17.0) gm/dL Hct 35.6 L (39.0-51.0) % Plt Count 196 (150-450) th/mm3 BMP 09/13/18 20:25 Sodium 144 Potassium 3.9 Chloride 111 H Carbon Dioxide 25.4 BUN 49 H Creatinine 2.38 H Calcium 8.4 L Cardiac Enzymes 09/13/18 Range/Units 20:25 Troponin I 0.10 H (0.02-0.05) ng/mL Urine 09/13/18 Range/Units 21:35 Urine Color Yellow (Yellw/Straw) Urine Clarity Hazy H (Clear) Urine pH 5.0 (5.0-8.5) Ur Specific [place] 1.014 (1.002-1.035) Urine Protein Negative (Neg-Trace) mg/dL Urine Glucose (UA) Negative (Negative) mg/dL - Imaging Impressions Head CT 09/13/18 20:11 CONCLUSION: 1. No acute intracranial abnormalities. Remote lacunar infarct left basal ganglia. . Head MRA 09/13/18 20:11 CONCLUSION: 1. Negative MRA Cow ([facility]) non contrast. Head/Brain Mag Res Venography 09/13/18 20:11 CONCLUSION: 1. Negative MRV of the brain. Caprini VTE Risk Assessment Caprini VTE Risk Assessment: No/Low Risk (score <= 1) Caprini Risk Assessment Model: Point Value = 1 Point Value = 2 Point Value = 3 Point Value = 5 Age 41-60 Minor surgery BMI > 25 kg/m2 Swollen legs Varicose veins or History of unexplained or recurrent spontaneous Oral contraceptives or hormone replacement Sepsis (< 1 month) Serious lung disease, including pneumonia (< 1 month) Abnormal pulmonary function Acute myocardial infarction Congestive heart failure (< 1 month) History of inflammatory bowel disease Medical patient at bed rest Age 61-74 Arthroscopic surgery Major open surgery (> 45 min) Laparoscopic surgery (> 45 min) Malignancy Confined to bed (> 72 hours) Immobilizing plaster cast Central venous access Age >= 75 History of VTE Family history of VTE Factor V Leiden Prothrombin [id number] Lupus anticoagulant Anticardiolipin antibodies Elevated serum homocysteine Heparin-induced thrombocytopenia Other congenital or acquired thrombophilia Stroke (< 1 month) Elective arthroplasty Hip, pelvis, or leg fracture Acute spinal cord injury (< 1 month) Prophylaxis Regimen: Total Risk Factor Score Risk Level Prophylaxis Regimen 0-1 Low Early ambulation 2 Moderate Order ONE of the following: *Sequential Compression Device (SCD) *Heparin 5000 units SQ BID 3-4 Higher Order ONE of the following medications: *Heparin 5000 units SQ TID *Enoxaparin/Lovenox 40 mg SQ daily (WT < 150 kg, CrCl > 30 mL/min) *Enoxaparin/Lovenox 30 mg SQ daily (WT < 150 kg, CrCl > 10-29 mL/min) *Enoxaparin/Lovenox 30 mg SQ BID (WT < 150 kg, CrCl > 30 mL/min) AND/OR *Sequential Compression Device (SCD) 5 or more Highest Order ONE of the following medications: *Heparin 5000 units SQ TID (Preferred with Epidurals) *Enoxaparin/Lovenox 40 mg SQ daily (WT < 150 kg, CrCl > 30 mL/min) *Enoxaparin/Lovenox 30 mg SQ daily (WT < 150 kg, CrCl > 10-29 mL/min) *Enoxaparin/Lovenox 30 mg SQ BID (WT < 150 kg, CrCl > 30 mL/min) AND *Sequential Compression Device (SCD) Assessment and Plan - Assessment (1) Dizziness Code(s): R42 - Dizziness and giddiness Status: Acute (2) Gait instability Code(s): R26.81 - Unsteadiness on feet Status: Acute (3) Elevated troponin Code(s): R74.8 - Abnormal levels of other serum enzymes Status: Acute (4) ABIMAEL (acute kidney injury) Code(s): N17.9 - Acute kidney failure, unspecified Status: Acute (5) DM (diabetes mellitus) Code(s): E11.9 - Type 2 diabetes mellitus without complications Status: Acute - Plan A/P: 1. Dizziness: ongoing for several weeks, pending appt w/ outpatient Neurologist and ENT, CT Head w/ no acute findings, MRA/MRV Head negative, images reviewed. S/p Meclizine w/ minimal improvement, IVF for hydration, PT for eval/tx, recommend outpatient follow up w/ Neurologist and ENT as scheduled. 2. Gait Instability: secondary to above, unable to ambulate due to intense dizziness, PT for eval/tx, Case Management as needed. 3. ABIMAEL: Creatinine 2.38, previously 0.87 on 05/20/18, U/a negative, UDS negative, IVF for hydration, monitor I/O, repeat labs in am. 4. Elevated Trop: Trop 0.10, no EKG changes, no c/o chest pain, chronically elevated in comparison to previous labs, however no cardiac intervention, will Consult Cardiology as needed for further eval. Telemetry. 5. DM: Sliding scale w/ Accu-Cheks, hold Metformin. 6. DVT Prophylaxis: SCD/Teds 7. Social work for d/c planning as needed 8. Case discussed w/ ER physician at length, labs/records/imaging reviewed by me.
[2018-09-13 22:35] LABS: Amphetamine Screen,Urine Neg (Neg); Barbiturate Screen,Urine Neg (Neg); Cannabinoid Screen,Urine Neg (Neg); Cocaine Screen,Urine Neg (Neg)
[2018-09-13 22:36] LABS: Opiate Screen,Urine Neg (Neg)
[2018-09-13] MEDS ORDERED: Sodium Chloride 0.9% 2 ML Flush PRN IV.FLUSH (23:12)
[2018-09-13] MEDS: Sod Chloride 0.9% Inj 1,000 ML IV.CONT SCH (23:54)
[2018-09-14 07:29] LABS: Baso % (Auto) 0.9 % (0.0-2.0); Eos # (Auto) 0.2 th/mm3 (0.0-0.4); Eos % (Auto) 3.8 % (0.0-4.0); Hematocrit 39.1 % (39.0-51.0); Hemoglobin 13.4 gm/dL (13.0-17.0); Lymph # (Auto) 1.2 th/mm3 (1.0-4.8); Lymph % (Auto) 25.1 % (9.0-44.0); Mean Corpuscular HGB Conc 34.4 % (32.0-36.0); Mean Corpuscular Hemoglobin 31.9 pg (27.0-34.0); Mean Corpuscular Volume 92.8 fL (80.0-100.0); Mean Platelet Volume 8.5 fL (7.0-11.0); Mono % (Auto) 20.2 % (0.0-8.0); Neut # (Auto) 2.4 th/mm3 (1.8-7.7); Platelet Count 262 th/mm3 (150-450); Red Blood Count 4.21 mil/mm3 (4.50-5.90); Red Cell Distribution Width 13.7 % (11.6-17.2); White Blood Count 4.8 th/mm3 (4.0-11.0)
[2018-09-14 08:18] LABS: Alanine Aminotransferase 107 U/L (12-78); Albumin 3.1 g/dL (3.4-5.0); Alkaline Phosphatase 83 U/L (45-117); Anion Gap 6 meq/L (5-15); Aspartate Aminotransferase 77 U/L (15-37); Blood Urea Nitrogen 7 mg/dL (7-18); Calcium 8.5 mg/dL (8.5-10.1); Carbon Dioxide 28.7 meq/L (21.0-32.0); Chloride 105 meq/L (98-107); Glomerular Filtration Rate 70 mL/min (>89); Glucose,Random 93 mg/dL (74-106); Potassium 3.7 meq/L (3.5-5.1); Sodium 140 meq/L (136-145); Total Protein 7.8 g/dL (6.4-8.2)
[2018-09-14] MEDS: Sod Chloride 0.9% Inj 1,000 ML IV.CONT SCH ×2 (10:55→20:02)
[2018-09-14] MEDS: Metoprolol Tartrate 25 MG Tablet PO SCH (10:56)
[2018-09-14] MEDS: Furosemide 20 MG Tablet PO SCH (10:56)
[2018-09-14] MEDS: Sodium Chloride 0.9% 2 ML Flush BID IV.FLUSH SCH ×2 (10:57→21:07)
[2018-09-14] MEDS: Heparin - SQ 10,000 UNITS/ML Vial SQ SCH ×2 (10:57→21:07)
[2018-09-14] MEDS: Senna/Docusate Sodium 8.6/50 MG Tablet PO SCH (10:57)
[2018-09-14] MEDS: Insulin NovoLOG Aspart Correctional Sugar Inj SQ SCH ×4 (10:57→21:08)
--- NOTE | 2018-09-14 13:12 | MB ---
cc: Jim Vital DO DATE: 09/14/2018 REASON FOR CONSULTATION: Dizziness, elevated troponin. HISTORY OF PRESENT ILLNESS: Alfonso Guzman is a pleasant 73-year-old male who sees my partner, Dr. Singh, in the office and presented to [facility] due to dizziness as well as gait instability over the past few months. He states that over the past 2 weeks this has gotten significantly worse. Occasionally, he gets lightheaded with standing up, but his main complaint is that the room is spinning most of the time. When he attempts to walk forward towards a certain object, he ends veering off to one side. He saw his primary care physician, who referred him to a neurologist, but he could not see them for 6 weeks. He has also been referred to ENT. He denies any chest pain, shortness of breath or palpitations. He did have some meclizine in the emergency room with minimal improvement of his dizziness. He did state that he has not worn his one hearing aid recently and this has made him somewhat feel better. PAST MEDICAL HISTORY: 1. COPD. 2. Diabetes mellitus. 3. Hypertension. 4. Hyperlipidemia. PAST SURGICAL HISTORY: 1. Negative EP study for SVT (10/24/2015). 2. ORIF right ankle fracture (09/07/2016). 3. Posterior cervical fusion C3 through C6 (08/01/2015). 4. Anterior cervical diskectomy C3 through C6 (07/13/2015). 5. C3 through C6 interbody fusion (07/13/2015). ALLERGIES: 1. ERYTHROMYCIN. 2. GENTAMICIN. MEDICATIONS: 1. Omeprazole 40 mg daily. 2. Ipratropium bromide 2 sprays q.i.d. 3. Fluconazole 50 mcg 2 sprays daily. 4. Albuterol 90 mcg as needed. 5. Trazodone 100 mg daily. 6. Soliqua 30 units daily. 7. Lipitor 80 mg every other day. 8. Flomax 0.4 mg b.i.d. 9. Metoprolol tartrate 12.5 mg b.i.d. 10. Metformin 1000 mg b.i.d. 11. Losartan 25 mg daily. 12. Lasix 20 mg daily. 13. Aspirin 81 mg daily. 14. Breo Ellipta 200/25 daily. 15. Norvasc 10 mg daily. FAMILY HISTORY: Denies premature coronary artery disease or sudden cardiac within the family. SOCIAL HISTORY: The patient continues to smoke tobacco. Denies alcohol or drug abuse. REVIEW OF SYSTEMS: Fourteen systems were reviewed including osteopathic. Pertinent positives and negatives above, otherwise negative. PHYSICAL EXAMINATION: VITAL SIGNS: Temperature 98.1, heart rate 69, blood pressure 143/72, respirations 16, pulse oximetry 96% on room air. GENERAL: The patient appears well, in no acute distress, alert, awake and oriented x3. HEENT: Extraocular muscles intact. Mucous membranes moist. NECK: Supple. No JVD at 45 degrees. No carotid bruits heard bilaterally. Carotid upstroke is brisk in nature. HEART: Regular rate and rhythm. Positive first and second heart sounds with a 1/6 holosystolic murmur noted at the apex. LUNGS: Clear to auscultation bilaterally. No wheezes, rales or rhonchi. ABDOMEN: Soft, nontender, nondistended. No organomegaly noted. EXTREMITIES: Show no clubbing, cyanosis or edema. Femoral and distal pulses intact bilaterally. NEUROLOGIC: No focal deficits. SKIN: Warm, dry and intact. OSTEOPATHIC: No kyphoscoliosis, lordosis or paraspinal tender points. LABORATORY DATA: Hemoglobin 13.4, hematocrit 39.1, platelets 262. Potassium 3.7, BUN 7, creatinine 1.04. Troponin 0.11, decreasing to 0.02. Electrocardiogram (09/13/2018 at 1906): Sinus rhythm, occasional PACs, single PVC, right bundle branch block, left anterior fascicular block. IMPRESSION: 1. Dizziness. 2. Gait instability. 3. Acute kidney injury. 4. Minimally elevated troponin. 5. Tobacco abuse. RECOMMENDATIONS: 1. Mr. Guzman presented with dizziness as well as gait instability. 2. Part of this, I believe, is orthostatic hypotension, most likely due to autonomic dysfunction as well as some mild dehydration. 3. He also appears to have probably inner ear dysfunction leading to gait instability as well as dizziness. This is more apparent when he is walking forward and is unable to walk in a straight line, but veers off to the side. I have asked that he follow up with either ENT or a balance clinic for further recommendations. 4. He does have a minimally elevated troponin. Ultimately, he is asymptomatic from this and he has chronically had this mild elevation on every admission that he has had. No further workup at this time. 5. Earlier this year, he had an echocardiogram done in our office, which showed normal function with no significant valvulopathies. 6. I spoke to him for greater than 3 minutes about tobacco cessation. 7. No further workup from my standpoint. He can follow up with Dr. Singh as previously scheduled. Thank you for allowing me to see Alfonso Guzman. If there are any questions, please do not hesitate to call. DO ZAIRA ClaytonP/viv , 12:38 PM , 12:51 PM
--- NOTE | 2018-09-14 16:53 | ECG ---
Date Performed: 09/13/2018 Time Performed: 19:06:25 PTAGE: 73 years EKG: Sinsu rhythm with occasional premature atrial and occasional premature ventricular contract ions. RIGHT BUNDLE BRANCH BLOCK LEFT ANTERIOR FASCICULAR BLOCK ABNORMAL ECG PREVIOUS TRACING :08/17/2018 @12.32 Compared to previous tracing, the PVC's and PAC's are new b ut Otherwise no significant serial change. DOCTOR: Ema Nieves Interpretating Date/Time 09/14/2018 16:50:55
--- NOTE | 2018-09-14 17:09 | P.DCO ---
- Diagnosis (1) Dizziness Status: Acute (2) Gait instability Status: Acute - Physical Therapy Order: Evaluate and treat, Improve ambulation, Strength and gait training - Home Health Nursing Order: Medical education, Signs/symptoms of disease process, Medication education-adverse effect, Nursing assessment with vital signs - Case Management Consult Yes - Certification I have seen patient Alfonso Guzman on 09/14/18. My clinical findings support the need for the requested home health care services because: Deconditioned with increased weakness, Medication compliance is questionable, Limited ability to care for self, High risk of falls I certify that my clinical findings support that this patient is homebound because: Unsteady gait/balance, Unsafe to leave home unassisted, Unable to use public transportation
--- NOTE | 2018-09-14 17:24 | P.PN ---
Subjective Interval history: Follow-up on patient with dizziness. Patient seen and examined. Patient denies any dizziness at this time. He denies any headache or focal weakness. He denies any changes in vision. He denies any chest pain or shortness of breath. Denies any nausea, vomiting or abdominal pain. Patient has upcoming appointment this Friday with neurology and also has been referred to [facility] ENT by his PCP. Physical Exam Vital signs: Vital Signs 09/13/18 19:13 09/13/18 22:00 09/13/18 23:57 Temperature 98 F Pulse Rate 76 62 76 Respiratory Rate 20 20 Blood Pressure 138/89 151/82 H Pulse Oximetry 95 95 09/14/18 00:00 09/14/18 04:00 09/14/18 08:00 Temperature 97.8 F 97.9 F 98.1 F Pulse Rate 83 75 75 Respiratory Rate 18 18 16 Blood Pressure 162/90 H 156/84 H 143/72 H Pulse Oximetry 95 97 96 09/14/18 12:00 Temperature 98.1 F Pulse Rate 68 Respiratory Rate 16 Blood Pressure 149/69 H Pulse Oximetry 96 Intake & Output 09/13/18 09/14/18 09/14/18 18:59 06:59 18:59 Intake Total 1999 1000 / 1000 Balance 1999 1000 / 1000 Weight 100.8 kg Intake: IV 1999 / 1000 NS Inj 1,000 ML @ 100 mls/hr IV 1000 / 1000 .CONT .Q10H [facility]I Rx#:[id number] NS Inj 1,000 ML @ Wide Open IV. 1999 SIG BOLUS [facility]I Rx#:[id number] Other: Date of Last Bowel Movement 09/12/18 09/12/18 Weight On Admission 100.2 kg Narrative: GENERAL: WDWN male patient, INAD. Awake and alert. Appears comfortable. SKIN: Warm and dry. HEENT: Atraumatic. Normocephalic. Pupils equal and round. No scleral icterus. No injection or drainage. No nasal bleeding or discharge. Mucous membranes pink and moist. NECK: Trachea midline. CARDIOVASCULAR: Regular rate and rhythm. RESPIRATORY: No accessory muscle use. Clear to auscultation. Breath sounds equal bilaterally. GASTROINTESTINAL: Abdomen soft, non-tender, nondistended. Hepatic and splenic margins not palpable. MUSCULOSKELETAL: Extremities without clubbing, cyanosis, or edema. No obvious deformities. NEUROLOGICAL: Awake and alert. No obvious cranial nerve deficits. Motor grossly within normal limits. Five out of 5 muscle strength in the arms and legs. Normal speech. PSYCHIATRIC: Appropriate mood and affect; insight and judgment normal. Results - Labs CBC & Chem 7: 09/14/18 05:59 09/14/18 05:59 Laboratory Results - last 24 hr 09/13/18 09/13/18 09/13/18 20:25 20:25 20:25 WBC 6.0 RBC 3.90 L Hgb 12.3 L Hct 35.6 L MCV 91.2 MCH 31.4 MCHC 34.4 RDW 14.0 Plt Count 196 MPV 7.7 Neut % (Auto) 68.2 Lymph % (Auto) 18.5 [place] % (Auto) 9.1 H Eos % (Auto) 3.6 Baso % (Auto) 0.6 Neut # (Auto) 4.1 Lymph # (Auto) 1.1 [place] # (Auto) 0.5 Eos # (Auto) 0.2 Baso # (Auto) 0.0 WBC Differential . Differential Comment Auto diff final Sodium 144 Potassium 3.9 Chloride 111 H Carbon Dioxide 25.4 Anion Gap 8 BUN 49 H Creatinine 2.38 H Estimated GFR 27 L POC Glucose Random Glucose 118 H Calcium 8.4 L Total Bilirubin AST ALT Alkaline Phosphatase Troponin I 0.10 H Total Protein Albumin Urine Color Urine Clarity Urine pH Ur Specific [place] Urine Protein Urine Glucose (UA) Urine Ketones Urine Occult Blood Urine Nitrate Urine Bilirubin Urine Urobilinogen Ur Leukocyte Esterase Urine WBC Urine Mucus Ur Microscopic Review Urine Opiates Screen Ur Barbiturates Screen Ur Amphetamines Screen U Benzodiazepines Scrn Urine Cocaine Screen U Cannabinoids Screen 09/13/18 09/13/18 09/14/18 21:35 21:35 00:46 WBC RBC Hgb Hct MCV MCH MCHC RDW Plt Count MPV Neut % (Auto) Lymph % (Auto) [place] % (Auto) Eos % (Auto) Baso % (Auto) Neut # (Auto) Lymph # (Auto) [place] # (Auto) Eos # (Auto) Baso # (Auto) WBC Differential Differential Comment Sodium Potassium Chloride Carbon Dioxide Anion Gap BUN Creatinine Estimated GFR POC Glucose Random Glucose Calcium Total Bilirubin AST ALT Alkaline Phosphatase Troponin I 0.11 H Total Protein Albumin Urine Color Yellow Urine Clarity Hazy H Urine pH 5.0 Ur Specific [place] 1.014 Urine Protein Negative Urine Glucose (UA) Negative Urine Ketones Negative Urine Occult Blood Small H Urine Nitrate Negative Urine Bilirubin Negative Urine Urobilinogen Less than 2 Ur Leukocyte Esterase Negative Urine WBC 2 Urine Mucus Few H Ur Microscopic Review Not Reportable Urine Opiates Screen Neg Ur Barbiturates Screen Neg Ur Amphetamines Screen Neg U Benzodiazepines Scrn Neg Urine Cocaine Screen Neg U Cannabinoids Screen Neg 09/14/18 09/14/18 09/14/18 05:59 05:59 07:51 WBC 4.8 RBC 4.21 L Hgb 13.4 Hct 39.1 MCV 92.8 MCH 31.9 MCHC 34.4 RDW 13.7 Plt Count 262 D MPV 8.5 Neut % (Auto) 50.0 Lymph % (Auto) 25.1 [place] % (Auto) 20.2 H Eos % (Auto) 3.8 Baso % (Auto) 0.9 Neut # (Auto) 2.4 Lymph # (Auto) 1.2 [place] # (Auto) 1.0 H Eos # (Auto) 0.2 Baso # (Auto) 0.0 WBC Differential . Differential Comment Auto diff final Sodium 140 Potassium 3.7 Chloride 105 Carbon Dioxide 28.7 Anion Gap 6 BUN 7 Creatinine 1.04 Estimated GFR 70 L POC Glucose 85 Random Glucose 93 Calcium 8.5 Total Bilirubin 0.8 AST 77 H ALT 107 H Alkaline Phosphatase 83 Troponin I Less than 0.02 L Total Protein 7.8 Albumin 3.1 L Urine Color Urine Clarity Urine pH Ur Specific [place] Urine Protein Urine Glucose (UA) Urine Ketones Urine Occult Blood Urine Nitrate Urine Bilirubin Urine Urobilinogen Ur Leukocyte Esterase Urine WBC Urine Mucus Ur Microscopic Review Urine Opiates Screen Ur Barbiturates Screen Ur Amphetamines Screen U Benzodiazepines Scrn Urine Cocaine Screen U Cannabinoids Screen - Imaging Impressions Head CT 09/13/18 20:11 CONCLUSION: 1. No acute intracranial abnormalities. Remote lacunar infarct left basal ganglia. . Head MRA 09/13/18 20:11 CONCLUSION: 1. Negative MRA Cow ([place] [facility] [place]) non contrast. Head/Brain Mag Res Venography 09/13/18 20:11 CONCLUSION: 1. Negative MRV of the brain. Assessment and Plan - Assessment (1) Dizziness Code(s): R42 - Dizziness and giddiness Status: Acute (2) Gait instability Code(s): R26.81 - Unsteadiness on feet Status: Acute - Plan 73-year-old male with a PMH of HTN, Hyperlipidemia, DM and COPD who presented to ER with complaints of dizziness and gait instability x2 wks. Dizziness: ongoing for several weeks, pending appt w/ outpatient Neurologist and ENT CT Head w/ no acute findings MRA/MRV Head negative -IVF for hydration -PT evaluated, recommends home health care PT -recommend outpatient follow up w/ Neurologist and ENT as scheduled. -Orthostatics negative however patient also on losartan and Norvasc at home that has not been resumed here Gait Instability: secondary to above -treatment as above ABIMAEL: Creatinine 2.38, previously 0.87 on 05/20/18, suspect secondary to dehydration U/a negative, UDS negative -IVF for hydration -Repeat creatinine improved to 1.04 -Avoid nephrotoxic agents -Continue to monitor kidney function as indicated Elevated Trop: Trop 0.10, no EKG changes, no c/o chest pain, chronically elevated in comparison to previous labs, -Evaluated by Dr. Vital of cardiology -dizziness likely in part orthostatic hypotension as well as mild dehydration. Also may have inner ear dysfunction. Echocardiogram done in their office showed normal function with no valvulopathies. No further cardiac workup at this time DM: -blood sugars tightly controlled -continue to hold Metformin -Sliding scale w/ Accu-Cheks DVT Prophylaxis: SCD/Teds Discharge patient to home with [facility] Condition on discharge: Stable Heart healthy, diabetic diet Activity Per PT recommendations Rx written: Meclizine Follow-up with primary care physician, upcoming neurology appointment this Friday and ENT Code Status: FULL Discussed Condition With: Patient, nursing staff, Dr. Vital, Dr. Barros
[2018-09-15] MEDS: Senna/Docusate Sodium 8.6/50 MG Tablet PO SCH ×2 (00:45→10:25)
[2018-09-15] MEDS: Sod Chloride 0.9% Inj 1,000 ML IV.CONT SCH (04:39)
[2018-09-15 09:07] VITALS: RESP 18
[2018-09-15] MEDS: Metoprolol Tartrate 25 MG Tablet PO SCH (10:20)
[2018-09-15] MEDS: Furosemide 20 MG Tablet PO SCH (10:21)
[2018-09-15] MEDS: Sodium Chloride 0.9% 2 ML Flush BID IV.FLUSH SCH (10:25)
[2018-09-15] MEDS: Insulin NovoLOG Aspart Correctional Sugar Inj SQ SCH (10:25)
[2018-09-15] MEDS: Heparin - SQ 10,000 UNITS/ML Vial SQ SCH (10:25)
[2018-09-15 14:41] VITALS: BP 158/76; PULSE 68; TEMP 98; O2SAT 96
--- NOTE | 2018-09-15 16:13 | P.DS ---
Date of admission: 09/13/18 22:17 Primary care physician: Flo Guzman MD Brief History from admission: This is a 73-year-old male with a PMH of HTN, Hyperlipidemia, DM and COPD who presented to ER with complaints of dizziness and gait instability x2 wks. States he was seen by his PCP few weeks ago and referred to ENT and Neurologist , has upcoming appointment this coming Friday. Today, states he had intense dizziness to the point where he was unable to ambulate without falling to one side, forced to sit in his recliner for several hours as unable to get up. On arrival, BP 138/89, HR 76, O2 sat 95% on RA, Afebrile. CBC unremarkable. Creatinine 2.38, previously 0.87 on 05/20/2018. Troponin 0 0.10, chronically elevated in comparison to previous labs, troponin 0 0.12 on 05/20/2018. Patient denies complaints of chest pain. UA negative for UTI. Urine Drug Screen negative. CT Head with no acute findings, remote lacunar infarct. MRA Head negative. MRV Head negative. While in ER, pt attempted ambulation, however unable to walk without assistance due to ongoing dizziness. S/p Meclizine in ER w/ minimal improvement. DS: Medications - Discharge Medications Prescriptions: meclizine 25 mg PO Q8H #15 tab DS: Summary Hospital Course: Mr. Guzman is a 73-year-old male. He was admitted secondary to dizziness. The dizziness was found to be secondary to vertigo and/or weakness. He had gait instability. Acute kidney injury was also present at time of admit and improved through time. Troponin elevation was also present but was likely secondary to dehydration. This patient improved through time and is medically cleared and stable for discharge as of 09/14/2018. Transport arranged and patient transferred to rehab center on 09/15/2018. - Time Spent with Patient Total time spent providing and/or coordinating discharge services: Less than 30 minutes - Quality: VTE Deep Vein Thrombosis/Pulmonary Embolism Present on Admission: No Exam Vital signs: Vital Signs 09/14/18 19:23 09/14/18 20:00 09/15/18 00:00 Temperature 98.3 F 97.9 F Pulse Rate 61 83 64 Respiratory Rate 17 17 Blood Pressure 150/83 H 166/80 H Pulse Oximetry 96 98 09/15/18 03:56 09/15/18 04:00 09/15/18 08:00 Temperature 98.4 F Pulse Rate 56 L 57 L 59 L Respiratory Rate 16 Blood Pressure 152/78 H Pulse Oximetry 98 09/15/18 08:20 09/15/18 12:00 Temperature 97.9 F 98.0 F Pulse Rate 75 68 Respiratory Rate 18 18 Blood Pressure 158/82 H 158/76 H Pulse Oximetry 95 96 Intake & Output 09/14/18 09/15/18 09/15/18 18:59 06:59 18:59 Intake Total 2830 / 2830 590 / 590 380 / 380 Output Total 1000 / 1000 1400 / 1400 2100 / 2100 Balance 1830 / 1830 -810 / -810 -1720 / -1720 Weight 101.1 kg Intake: IV 1650 / 1650 350 / 350 NS Inj 1,000 ML @ 100 mls/hr IV 1650 / 1650 350 / 350 .CONT .Q10H [facility]I Rx#:[id number] Oral 1180 / 1180 240 / 240 380 / 380 Output: Urine 1000 / 1000 1400 / 1400 2100 / 2100 Other: Date of Last Bowel Movement 09/12/18 09/12/18 09/12/18 # Bowel Movements 2 1 Results Procedures completed during hospitalization: None - Impressions ITS Impressions Head CT 09/13/18 20:11 CONCLUSION: 1. No acute intracranial abnormalities. Remote lacunar infarct left basal ganglia. . Head MRA 09/13/18 20:11 CONCLUSION: 1. Negative MRA Cow ([place] [facility] [place]) non contrast. Head/Brain Mag Res Venography 09/13/18 20:11 CONCLUSION: 1. Negative MRV of the brain. Discharge Plan - Discharge Disposition Patient Disposition: Disch /Home Health Service - Discharge Condition Condition: Stable - Discharge Order Discharge Orders: Discharge Order (Routine); Ordered 09/14/18 Ordered By: Abbie Espinoza - Discharge Details Anticipated Discharge Date: 09/14/18 Discharge Comment: Discharge pending PT eval/recommendatins and Orthostatic BP measurements - Physicians Team Primary Care Provider: Flo Guzman Attending Provider: Neal Lyn Other Providers: Sulmaa,Sulmaa ; Essie Sheldon MD
--- NOTE | 2018-09-15 22:14 | P.PNCA ---
Subjective Interval history: No events overnight Since starting Meclizine, dizziness is gone Medications and Allergies Allergies Allergy/AdvReac Type Severity Reaction Status Date / Time erythromycin base Allergy Severe RASH, Verified 09/13/18 19:17 HIVES, SOB gentamicin Allergy Severe RASH/SOB Verified 09/13/18 19:17 Home Medications Medication Instructions Recorded Confirmed Type albuterol sulfate [Ventolin HFA] 90 mcg INHALATION PRN PRN 07/29/18 09/14/18 History aspirin 81 mg PO DAILY 07/29/18 09/14/18 History atorvastatin 80 mg PO EVERY OTHER DAY 07/29/18 09/14/18 History fluticasone 2 spray INTRANASAL DAILY 07/29/18 09/14/18 History fluticasone-vilanterol [Breo 1 inh INHALATION DAILY 07/29/18 09/14/18 History Ellipta] furosemide 20 mg PO DAILY 07/29/18 09/14/18 History insulin glargine-lixisenatide 30 units SUB-Q DAILY 07/29/18 09/14/18 History [Soliqua 100/33] ipratropium bromide 2 spray INTRANASAL QID 07/29/18 09/14/18 History losartan 25 mg PO DAILY 07/29/18 09/14/18 History metoprolol tartrate 12.5 mg PO BID 07/29/18 09/14/18 History omeprazole 40 mg PO DAILY 07/29/18 09/14/18 History tamsulosin 0.4 mg PO BID 07/29/18 09/14/18 History trazodone 100 mg PO DAILY 07/29/18 09/14/18 History Physical Exam Vital signs: Vital Signs 09/15/18 00:00 09/15/18 03:56 09/15/18 04:00 Temperature 97.9 F 98.4 F Pulse Rate 64 56 L 57 L Respiratory Rate 17 16 Blood Pressure 166/80 H 152/78 H Pulse Oximetry 98 98 09/15/18 08:00 09/15/18 08:20 09/15/18 12:00 Temperature 97.9 F 98.0 F Pulse Rate 59 L 75 68 Respiratory Rate 18 18 Blood Pressure 158/82 H 158/76 H Pulse Oximetry 95 96 Intake & Output 09/15/18 09/15/18 09/16/18 06:59 18:59 06:59 Intake Total 590 / 590 380 / 380 Output Total 1400 / 1400 2099 / 2099 Balance -810 / -810 -1720 / -1720 Weight 101.1 kg Intake: IV 350 / 350 NS Inj 1,000 ML @ 100 mls/hr IV 350 / 350 .CONT .Q10H MEI Rx#:[id number] Oral 240 / 240 380 / 380 Output: Urine 1400 / 1400 2099 Other: Date of Last Bowel Movement 09/12/18 09/12/18 # Bowel Movements 1 Narrative: GENERAL: WDWN male patient, INAD. Awake and alert. Appears comfortable. SKIN: Warm and dry. HEENT: Atraumatic. Normocephalic. Pupils equal and round. No scleral icterus. No injection or drainage. No nasal bleeding or discharge. Mucous membranes pink and moist. NECK: Trachea midline. CARDIOVASCULAR: Regular rate and rhythm. RESPIRATORY: No accessory muscle use. Clear to auscultation. Breath sounds equal bilaterally. GASTROINTESTINAL: Abdomen soft, non-tender, nondistended. Hepatic and splenic margins not palpable. MUSCULOSKELETAL: Extremities without clubbing, cyanosis, or edema. No obvious deformities. NEUROLOGICAL: Awake and alert. No obvious cranial nerve deficits. Motor grossly within normal limits. Five out of 5 muscle strength in the arms and legs. Normal speech. PSYCHIATRIC: Appropriate mood and affect; insight and judgment normal. Results 09/14/18 05:59 09/14/18 05:59 Cardiac Enzymes 09/14/18 09/14/18 Range/Units 00:46 05:59 AST 77 H (15-37) U/L Troponin I 0.11 H Less than 0.02 L (0.02-0.05) ng/mL CBC 09/14/18 Range/Units 05:59 WBC 4.8 (4.0-11.0) th/mm3 RBC 4.21 L (4.50-5.90) mil/mm3 Hgb 13.4 (13.0-17.0) gm/dL Hct 39.1 (39.0-51.0) % Plt Count 262 D (150-450) th/mm3 Neut # (Auto) 2.4 (1.8-7.7) th/mm3 Lymph # (Auto) 1.2 (1.0-4.8) th/mm3 [place] # (Auto) 1.0 H (0.0-0.9) th/mm3 Eos # (Auto) 0.2 (0.0-0.4) th/mm3 Baso # (Auto) 0.0 (0.0-0.2) th/mm3 Comprehensive Metabolic Panel 09/14/18 Range/Units 05:59 Sodium 140 (136-145) meq/L Potassium 3.7 (3.5-5.1) meq/L Chloride 105 (98-107) meq/L Carbon Dioxide 28.7 (21.0-32.0) meq/L BUN 7 (7-18) mg/dL Creatinine 1.04 (0.60-1.30) mg/dL Calcium 8.5 (8.5-10.1) mg/dL AST 77 H (15-37) U/L ALT 107 H (12-78) U/L Alkaline Phosphatase 83 (45-117) U/L Total Protein 7.8 (6.4-8.2) g/dL Albumin 3.1 L (3.4-5.0) g/dL Intake and Output 09/15/18 09/15/18 09/15/18 06:59 14:59 22:59 Intake Total 590 / 590 380 / 380 Output Total 1400 / 1400 2100 / 2100 Balance -810 / -810 -1720 / -1720 Intake: IV 350 / 350 NS Inj 1,000 ML @ 100 mls/hr IV 350 / 350 .CONT .[facility]10H [facility] Rx#:[id number] Oral 240 / 240 380 / 380 Output: Urine 1400 / 1400 2100 / 2100 Other: Date of Last Bowel Movement 09/12/18 # Bowel Movements 1 Weight 101.1 kg Assessment and Plan - Assessment (1) Dizziness Code(s): R42 - Dizziness and giddiness Status: Acute (2) Gait instability Code(s): R26.81 - Unsteadiness on feet Status: Acute (3) Elevated troponin Code(s): R74.8 - Abnormal levels of other serum enzymes Status: Acute (4) ABIMAEL (acute kidney injury) Code(s): N17.9 - Acute kidney failure, unspecified Status: Acute (5) DM (diabetes mellitus) Code(s): E11.9 - Type 2 diabetes mellitus without complications Status: Acute - Plan 1) Dizziness Appears to be vertigo Meclizine helping 2) Gait instability May have inner ear dysfunction He has follow up with ENT Consider balance clinic 3) Chronic minimally elevated troponins No further work up 4) Tobacco cessation 5) Cardiovascularly stable for discharge
== END 2018-09-15 13:20 | disposition home health service (06) ==
LOC: NEPC 18:48 → NEDA 22:17 → N04 23:41
PROVIDERS: ADMIT Hospitalist; ATTEND Hospitalist